=== PATIENT | female | born 1930 | race Native Hawaiian/Other Pacific Islander ===

== ENCOUNTER → 2016-02-19 | Outpatient (CLI) | payer MEDICARE, BC ==
--- NOTE | 2016-02-22 16:05 | BD ---
EXAMINATION TYPE: MG DEXA axial skeleton. DATE OF EXAM: 02/19/2016 3:44 PM COMPARISON: NONE CLINICAL HISTORY: Height: 59 IN Weight: 130 LBS FRAX RISK QUESTIONS: Alcohol (3 or more units per day): NO Family History (Parent hip fracture): NO Glucocorticoids (More than 3mos): NO (Ex: prednisone, prednisolone, methylprednisolone, dexamethasone, and hydrocortisone). History of Fracture in Adulthood: YES TIB FIB AGE 76 Secondary Osteoporosis: 1. Type 1 Diabetes: NO 2. Hyperthyroidism: NO 3. Menopause before 45: YES AGE 29 4. Malnutrition: NO 5. Chronic liver disease: NO Rheumatoid Arthritis: NO Current Tobacco Use: NO RISK FACTORS HISTORY OF: Other Fractures since Age 52: YES RT TIB FIB When: AGE 76 Active: YES Diet low in dairy products/other sources of calcium: YES Postmenopausal woman: AGE 29 MEDICATIONS: Additional Medications: VIT D, MULTI VIT, METFORMIN, LISINIPRIL, ASPIRIN, EXAM MEASUREMENTS: Bone mineral densitometry was performed using the UBmatrix System. Bone mineral density as measured about the Lumbar spine is: ----- L1-L4(G/cm2): 1.231 T Score Values are as follows: ----- L2: -0.4 ----- L3: 0.6 ----- L4: 2.7 ----- L1-L4: 0.4 Bone mineral density has: Increased 4.4% since study of: 07/19/2006 Bone mineral density about the R hip (g/cm2): 0.892 Bone mineral density about the L hip (g/cm2): 0.870 T Score values are as follows: -----R Neck: -1.1 -----L Neck: -1.2 -----R Intertrochanter: -1.4 -----L Intertrochanter: -1.2 Bone mineral density has: Decreased -2.8% since study of: 07/19/2006 IMPRESSION: Osteopenia (T Score between -2.5 and -1 as noted by T score values There is slightly increased risk of fracture and the patient may be considered for treatment. Re-Screen 1-2 years. NOTE: T-SCORE=SD OF THE YOUNG ADULT MEAN.
--- NOTE | 2016-02-24 09:04 | MM ---
Reason for exam: screening (asymptomatic). Last mammogram was performed 1 year and 3 months ago. History: Patient is postmenopausal. Physical Findings: A clinical breast exam by your physician is recommended on an annual basis and results should be correlated with mammographic findings. MG 3D Screening Mammo W/Cad Bilateral CC and MLO view(s) were taken. Prior study comparison: December 01, 2014, bilateral MG screening mammo w CAD. January 09, 2013, [facility] DIGITAL LEFT BREAST MAMMOGRAM w/CAD. The breast tissue is extremely dense which could obscure a lesion on mammography. Asymmetry. No significant changes when compared with prior studies. ASSESSMENT: Benign, BI-RAD 2 RECOMMENDATION: Routine screening mammogram of both breasts in 1 year.
== END | disposition home or self-care (01) ==
LOC: RADMAMWWP 14:46
PROVIDERS: ATTEND Internal Medicine Geriatric Medicine
DX: Z12.31 Encounter for screening mammogram for malignant neoplasm of breast (principal); M85.80 Other specified disorders of bone density and structure, unspecified site
CPT/HCPCS: 77080; 77063; G0202

== ENCOUNTER 2016-03-04 07:28 | Day surgery (SDC) | payer BC, MEDICARE ==
[2016-02-29 11:22] VITALS: BMI 25.8
[~2016-03-04 07:28] MED LIST: LACTATED RINGERS 1,000 ML IV SCH
[2016-03-04 08:09] LABS: Glucose,Whole Blood 82 mg/dL (75-99)
[2016-03-04 08:13] VITALS: RESP 16; TEMP 97.9
[2016-03-04] MEDS ORDERED: LIDOCAINE 1% 20 ML VIAL (10MG/ML) FOR IV START INTRAPLEUR ONE (08:14)
[2016-03-04] MEDS ORDERED: LIDOCAINE 1% INJ 10MG/ML (20 ML MDV) ONE (08:19)
[2016-03-04] MEDS ORDERED: PROPOFOL 10 MG/ML 20 ML VIAL IV ONE (08:19)
--- NOTE | 2016-03-04 08:39 | P.PCN ---
Date of Procedure: 03/04/16 Procedure(s) Performed: Brief history: Patient is a pleasant 86-year-old white female, scheduled for an elective upper endoscopy as well as colonoscopy as a part of evaluation of iron deficiency anemia. She denies any GI symptoms. Procedure performed: Esophagogastroduodenoscopy with biopsy Colonoscopy Preoperative diagnosis: Iron deficiency anemia Anesthesia: [facility] Procedure: After informed consent was obtained from the patient was brought into the endoscopy unit and IV conscious sedation was administered by anesthesia under continuous monitoring. Initially upper endoscopy was done. The Olympus GF 160 video endoscope was inserted inserted into the mouth and esophagus intubated without any difficulty and was gradually advanced into the stomach and duodenum and carefully examined. The bulb and second part of the duodenum appeared normal. Biopsies were done from the duodenum to rule out celiac disease. The scope was then withdrawn into the stomach adequately insufflated with air and upon careful examination the antrum had mild gastritis and biopsies were done from this area. The body, cardia and fundus appeared normal. The scope was then withdrawn into the esophagus. The GE junction was located at 40 cm to the incisors. It appeared regular with no erythema erosions or ulcerations. Rest of the esophagus appeared normal. Patient tolerated the procedure well. At this time the patient continued to remain sedation. Initial digital rectal examination was normal. Olympus CF 160 video colonoscope was then inserted into the rectum and gradually advanced to the cecum without any difficulty. Careful examination was performed as the scope was gradually being withdrawn. The prep was excellent. The cecum, ascending colon, transverse colon, descending colon, sigmoid colon and rectum appeared normal. Retroflexion was performed in the rectum andsmall internal hemorrhoidsre noted. Patient tolerated the procedure well. Impression: 1. Upper endoscopy revealed mild antral gastritis but no evidence of esophagitis or peptic ulcer disease. 2. Colonoscopy was essentially within normal limits with no evidence of colitis or colorectal neoplasia. Small internal hemorrhoids seen. Recommendations: Findings of this examination were discussed with the patient as well as her family. She was advised to follow with the biopsy results. She'll also advised to follow with Dr. Bryant is scheduled.
[2016-03-04 09:31] VITALS: BP 181/87; PULSE 77
[2016-03-04 09:33] LABS: Glucose,Whole Blood 68 mg/dL (75-99)
== END 2016-03-04 10:04 | disposition home or self-care (01) ==
LOC: ORWHC2ENDO 07:28
PROVIDERS: ATTEND Internal Medicine Gastroenterology
DX: K29.50 Unspecified chronic gastritis without bleeding (principal); D50.9 Iron deficiency anemia, unspecified; B96.81 Helicobacter pylori [H. pylori] as the cause of diseases classified elsewhere; E78.5 Hyperlipidemia, unspecified; I10 Essential (primary) hypertension; K64.8 Other hemorrhoids; I25.2 Old myocardial infarction; Z79.84 Long term (current) use of oral hypoglycemic drugs; Z79.4 Long term (current) use of insulin; Z79.899 Other long term (current) drug therapy; Z79.82 Long term (current) use of aspirin
CPT/HCPCS: 43239; 45378; 88305; 88342; J2001; J2704; 99153

== ENCOUNTER 2016-03-27 12:15 | Emergency (ER) | payer MEDICARE ==
[2016-03-27 12:20] VITALS: RESP 18
[2016-03-27] MEDS ORDERED: ASPIRIN 81 MG CHEW PO STA (12:39)
[2016-03-27 13:11] LABS: Basophils # (A) 0.1 k/uL (0-0.2); Basophils % (A) 1 %; CH 30.9; CHCM 32.6; Eosinophils # (A) 0.2 k/uL (0-0.7); Eosinophils % (A) 4 %; HCT 31.2 % (34.0-46.0); HDW 2.43; HGB 9.7 gm/dL (11.4-16.0); Luc # (Auto) 0.12; Luc % (Auto) 3; Lymphocytes # (A) 0.5 k/uL (1.0-4.8); Lymphocytes % (A) 11 %; MCH 29.6 pg (25.0-35.0); MCHC 31.2 g/dL (31.0-37.0); MCV 95.1 fL (80.0-100.0); Mean Platelet Volume 8.9; Monocytes # (A) 0.3 k/uL (0-1.0); Monocytes % (A) 6 %; Neutrophils # (A) 3.6 k/uL (1.3-7.7); Neutrophils % (A) 75 %; RBC 3.28 m/uL (3.80-5.40); RDW 12.8 % (11.5-15.5); WBC 4.8 k/uL (3.8-10.6); WBC (Perox) 4.89
[2016-03-27 13:15] LABS: Anion Gap 11 mmol/L; Blood Urea Nitrogen 24 mg/dL (7-17); Calcium 8.9 mg/dL (8.4-10.2); Carbon Dioxide 23 mmol/L (22-30); Chloride 107 mmol/L (98-107); Glucose 259 mg/dL (74-99); Magnesium 1.9 mg/dL (1.6-2.3); Non-African American GFR(MDRD) 53 (>60 ml/min/1.73 sqM); Potassium 4.9 mmol/L (3.5-5.1); Sodium 141 mmol/L (137-145)
--- NOTE | 2016-03-27 13:19 | XR ---
EXAMINATION TYPE: XR chest 1V portable DATE OF EXAM: 03/27/2016 1:12 PM COMPARISON: NONE HISTORY: Chest discomfort per patient. Pain per order. TECHNIQUE: Single AP portable frontal upright view of the chest is obtained. FINDINGS: There is reticular interstitial changes in both lungs favor chronic parenchymal fibrosis s een bilaterally slightly more pronounced in the lung bases. There is no suspicious focal airspace [place], pleural effusion, or pneumothorax identified. The cardiac silhouette size is upper limits of no rmal with atherosclerotic thoracic aorta. The osseous structures are demineralized. IMPRESSION: Chronic parenchymal changes without acute pulmonary process.
[2016-03-27 13:22] LABS: Prothrombin Time 10.3 sec (9.0-12.0)
--- NOTE | 2016-03-27 14:55 | ED ---
Chest Pain HPI - General Chief Complaint: Chest Pain Stated Complaint: chest pain Time Seen by Provider: 03/27/16 12:31 Source: patient Mode of arrival: ambulatory Limitations: no limitations - History of Present Illness Initial Comments: Patient is an 86-year-old female with history of diabetes, hypertension, hyperlipidemia presenting with chest pain. Patient states chest pain started about hour prior to arrival and was associated with nausea. Patient was an argument with her . Chest pain did not radiate. Chest pain lasted about an hour or so as patient is chest pain free right now. Patient did not have to take any nitro. Patient does not take aspirin. Patient denies any fever, chills, shortness of breath, vomiting, diarrhea, abdominal pain, dysuria. Patient states she had a stress test about a year ago at Dr. Casas. - Related Data Home Medications Medication Instructions Recorded Confirmed Aspirin [Adult Low Dose Aspirin EC] 81 mg PO QAM 02/29/16 03/27/16 Baclofen [Lioresal] 10 mg PO QAM 02/29/16 03/27/16 Diltiazem HCl [Cartia Xt] 120 mg PO QAM 02/29/16 03/27/16 Insulin Lispro [humaLOG Kwikpen] 6 unit SQ BID 02/29/16 03/27/16 Lisinopril [Prinivil] 10 mg PO DAILY 02/29/16 03/27/16 Pravastatin Sodium [Pravachol] 40 mg PO HS 02/29/16 03/27/16 metFORMIN HCL [Glucophage] 500 mg PO DAILY 02/29/16 03/27/16 Amoxicillin 500 mg PO BID 03/27/16 03/27/16 Clarithromycin [Biaxin] 500 mg PO BID 03/27/16 03/27/16 Ranitidine HCl [Zantac] 150 mg PO BID 03/27/16 03/27/16 Allergies Allergy/AdvReac Type Severity Reaction Status Date / Time No Known Allergies Allergy Verified 03/27/16 13:04 Review of Systems ROS Statement: Those systems with pertinent positive or pertinent negative responses have been documented in the HPI. Constitutional: No fever and no chills. HENT: No congestion, no rhinorrhea and no sore throat. Eyes: No discharge and no redness. Respiratory: No cough and no shortness of breath. Cardiovascular: +chest pain and no palpitations. Gastrointestinal: +nausea, no vomiting, no abdominal pain and no diarrhea. Genitourinary: No dysuria and no hematuria. Musculoskeletal: No back pain and no arthralgias. Skin: No pallor and no rash. Neurological: No dizziness and No headaches. ROS Other: All systems not noted in ROS Statement are negative. EKG Findings - EKG Comments: EKG Findings:: Rate 93. NSR. No ST changes. TWI V2 AND V3. FL internal normal . QRS interval normal. QTc duration normal. Past Medical History Past Medical History: Diabetes Mellitus, Hyperlipidemia, Hypertension, Myocardial Infarction ([place]) Additional Past Medical History / Comment(s): HX OF ANEMIA, STATES WAS TOLD HAD SILENT [place], PT THINKS WHEN SHE WAS AGE 18, WEARS A WIG Last Myocardial Infarction Date:: UNKNOWN History of Any Multi-Drug Resistant Organisms: None Reported Past Surgical History: Appendectomy, Heart Catheterization, Hysterectomy Additional Past Surgical History / Comment(s): BROCK CATARACTS Past Anesthesia/Blood Transfusion Reactions: No Reported Reaction Past Psychological History: No Psychological Hx Reported Smoking Status: Never smoker Past Alcohol Use History: None Reported Past Drug Use History: None Reported - Past Family History Mother Family Medical History: Cancer Additional Family Medical History / Comment(s): LIVER General Exam - General Exam Comments Initial Comments: Constitutional: Patient appears well-developed and well-nourished. No distress. Head: Normocephalic and atraumatic. Eyes: Conjunctivae and EOM are normal. Right eye exhibits no discharge. Left eye exhibits no discharge. No scleral icterus. Neck: Normal range of motion. Neck supple. Cardiovascular: Normal rate and regular rhythm. No murmur heard. Pulmonary/Chest: Effort normal and breath sounds normal. No respiratory distress. No wheezes. Abdominal: Soft. No distension. There is no tenderness. There is no rebound and no guarding. Musculoskeletal: Normal range of motion. Tender bilateral pitting edema. Neurological: Patient alert and oriented to person, place, and time. Skin: Skin is warm and dry. Not diaphoretic. Nursing notes and vitals reviewed. Limitations: no limitations Course Vital Signs 03/27/16 03/27/16 03/27/16 12:18 12:36 13:20 Temperature 97.8 F 98.5 F Pulse Rate 98 78 80 Respiratory 18 18 18 Rate Blood Pressure 207/78 171/67 152/67 O2 Sat by Pulse 100 100 Oximetry 03/27/16 03/27/16 15:40 17:07 Temperature 98.2 F Pulse Rate 93 84 Respiratory 18 18 Rate Blood Pressure 165/73 159/71 O2 Sat by Pulse 100 100 Oximetry - Reevaluation(s) Reevaluation #1: 03/27/16 14:55 Updated patient on laboratory workup, chest x-ray and EKG. Patient considered a high-risk chest pain patient with a heart score of 5. Patient is now placed in the hospital. She is agreeable to second troponin. Chest Pain [facility] Patient is an 86-year-old female with history of diabetes, hypertension, hyperlipidemia presenting with chest pain. Chest pain was associate with an argument. Resolved with rest. Last of about one hour. Chest pain is nonradiating. EKG showed isolated T-wave inversions to V2 and V3. No prior EKG to compare. CBC, BMP showed a hemoglobin of 9.7, BUN of 24, glucose 259. Troponin was negative 2. BNP 520. Chest x-ray showing chronic parenchymal changes without acute bony process. Patient presented with chest pain and heart score is 5. Patient understands that she is a high-risk chest pain. She understands that she needs further testing including serial troponins, stress test, cardiology evaluation. She is understanding of risks and benefits. Patient understands she can have worsening cardiac damage resulting in disability and even . She accepts these risks. She does not want to stay in the hospital. Discussion was in front of family and they are agreeable with patient's decision as she has sound capacity to make decisions for herself. 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 She is leaving against my advice. Disposition Clinical Impression: Chest pain Disposition: Left Against Medical Advice Instructions: Chest Pain (ED) Referrals: Connor Shay MD [Primary Care Provider] - 1-2 days
[2016-03-27 17:08] VITALS: BP 159/71; PULSE 84; TEMP 98.2
== END 2016-03-27 17:13 | disposition left against medical advice (07) ==
LOC: EC 12:15
DX: R07.9 Chest pain, unspecified (principal); R11.0 Nausea; I10 Essential (primary) hypertension; E11.9 Type 2 diabetes mellitus without complications; E78.5 Hyperlipidemia, unspecified; I25.2 Old myocardial infarction; Z79.82 Long term (current) use of aspirin; Z79.4 Long term (current) use of insulin; Z79.84 Long term (current) use of oral hypoglycemic drugs; Z79.2 Long term (current) use of antibiotics; Z79.899 Other long term (current) drug therapy
CPT/HCPCS: 36415; 71010; 80048; 83735; 83880; 84484; 85025; 85610; 85730; 93005; 99285

== ENCOUNTER 2018-05-15 17:21 | Emergency (ER) | payer MEDICARE ==
[2018-05-15 17:27] VITALS: TEMP 97.6
[2018-05-15 17:35] LABS: Glucose,Whole Blood 294 mg/dL (75-99)
[2018-05-15 17:58] LABS: Basophils # (A) 0.1 k/uL (0-0.2); Basophils % (A) 1 %; Eosinophils # (A) 0.3 k/uL (0-0.7); Eosinophils % (A) 5 %; HCT 31.2 % (34.0-46.0); Lymphocytes # (A) 0.8 k/uL (1.0-4.8); Lymphocytes % (A) 15 %; MCHC 32.2 g/dL (31.0-37.0); MCV 93.1 fL (80.0-100.0); Mean Platelet Volume 7.4; Monocytes # (A) 0.3 k/uL (0-1.0); Monocytes % (A) 6 %; Neutrophils # (A) 3.7 k/uL (1.3-7.7); Neutrophils % (A) 70 %; Platelet Count 179 k/uL (150-450); RBC 3.35 m/uL (3.80-5.40); RDW 13.2 % (11.5-15.5); WBC 5.3 k/uL (3.8-10.6)
[2018-05-15 18:08] LABS: Calcium 9.1 mg/dL (8.4-10.2); Magnesium 1.5 mg/dL (1.6-2.3); Potassium 5.6 mmol/L (3.5-5.1); Total Bilirubin 0.4 mg/dL (0.2-1.3); Total Protein 6.8 g/dL (6.3-8.2)
--- NOTE | 2018-05-15 18:34 | ED ---
General Adult HPI - General Chief complaint: Recheck/Abnormal Lab/Rx Stated complaint: diabetic issue Time Seen by Provider: 05/15/18 17:28 Source: family Mode of arrival: wheelchair - History of Present Illness Initial comments: Dictation was produced using [employer] dictation software. please excuse any grammatical, word or spelling errors. Chief Complaint: 88-year-old female past medical history of diabetes, dyslipidemia, coronary artery disease presents with altered mental status. History of Present Illness: Patient was brought in by family. Apparently patient had altered mental status today. Patient is a diabetic. Family not here at bedside currently. Patient does not know why she is here. Nursing received report from triage nurse. I was told that patient was found to be altered by family and there was concern that patient had an episode of hypoglycemia. They gave her orange juice and other by mouth glucose. Patient improved however she is brought here because she is not mentating at her baseline currently. Patient does not know why she is here at this time. Patient has no complaints currently. The ROS documented in this emergency department record has been reviewed and confirmed by me. Those systems with pertinent positive or negative responses have been documented in the HPI. All other systems are other negative and/or noncontributory. PHYSICAL EXAM: General Impression: Alert and oriented x3, not in acute distress HEENT: Normocephalic atraumatic, extra-ocular movements intact, pupils equal and reactive to light bilaterally, dry mucous membranes Cardiovascular: Heart regular rate and rhythm, S1&S2 audible, no murmurs, rubs or gallops Chest: Lungs clear to auscultation bilaterally, no rhonchi, no wheeze, no rales Abdomen: Bowel sounds present, abdomen soft, non-tender, non-distended, no organomegaly Musculoskeletal: Pulses present and equal in all extremities, no peripheral edema Motor: no focal deficits noted Neurological: CN II-XII grossly intact, no focal motor or sensory deficits noted Skin: Intact with no visualized rashes Psych: Normal affect and mood ED course: 88-year-old female presents with altered mental status and concern for hypoglycemia. Vital signs upon arrival are within acceptable limits. Patient is well-appearing at this time. No focal neurologic deficits. Family was at bedside earlier today. Daughter who reports that patient has known history of diabetes. She does rule out insulin. Patient however has a history of not eating after taking insulin. She takes is him on insulin errors in all day. Patient has had multiple episodes like this in the past. Daughter at bedside reports that patient is at baseline currently. Laboratory evaluation obtained. CBC is unremarkable. Metabolic panel shows potassium 5.6. Rest metabolic panel is grossly unremarkable. Magnesium is 1.5. Patient given 1 L of intravenous fluids. Magnesium was replaced parenterally. Urinalysis unremarkable for urinary tract infection. Computed tomography scan of the head and x-ray shows no acute processes. Family bedside reports that patient is at baseline. He didn't fill comfortable taking her home. They did schedule an appointment with her primary care physician tomorrow. Patient is told that her magnesium was low and we replace it. She is told to get a glucometer to check her sugars so she knows how much insulin and how much glucose to take. It appears that patient is noncompliant with her diabetes regimen. Patient told that her potassium is 5.7 and that it should be rechecked again tomorrow by her PCP. Family and patient are understandable and agreeable to disposition. Clear for discharge. Told to return to the back to the emergency Department with any worsening symptoms. EKG interpretation: Ventricular rate 87, sinus rhythm with first-degree AV blo ck, UT interval 210, Q 74, QTc 445. No UT prolongation, no QTC prolongation, no ST or T-wave changes noted. Overall, this EKG is unremarkable - Related Data Home Medications Medication Instructions Recorded Confirmed Aspirin [Adult Low Dose Aspirin EC] 81 mg PO QAM 02/29/16 05/15/18 Diltiazem HCl [Cartia Xt] 120 mg PO QAM 02/29/16 05/15/18 Insulin Lispro [humaLOG Kwikpen] 7 unit SQ BID 02/29/16 05/15/18 Lisinopril [Prinivil] 10 mg PO DAILY 02/29/16 05/15/18 metFORMIN HCL [Glucophage] 500 mg PO DAILY 02/29/16 05/15/18 Bisacodyl [Dulcolax] 5 mg PO DAILY PRN 05/15/18 05/15/18 Nitroglycerin Sl Tabs [Nitrostat] 0.4 mg SUBLINGUAL Q5M PRN 05/15/18 05/15/18 Omeprazole [PriLOSEC] 20 mg PO DAILY 05/15/18 05/15/18 Allergies Allergy/AdvReac Type Severity Reaction Status Date / Time No Known Allergies Allergy Verified 05/15/18 17:36 Review of Systems ROS Statement: Those systems with pertinent positive or pertinent negative responses have been documented in the HPI. ROS Other: All systems not noted in ROS Statement are negative. Past Medical History Past Medical History: Diabetes Mellitus, Hyperlipidemia, Hypertension, Myocardial Infarction ([place]) Additional Past Medical History / Comment(s): HX OF ANEMIA, STATES WAS TOLD HAD SILENT [place], PT THINKS WHEN SHE WAS AGE 18, WEARS A WIG Last Myocardial Infarction Date:: UNKNOWN History of Any Multi-Drug Resistant Organisms: None Reported Past Surgical History: Appendectomy, Heart Catheterization, Hysterectomy Additional Past Surgical History / Comment(s): BROCK CATARACTS Past Anesthesia/Blood Transfusion Reactions: No Reported Reaction Past Psychological History: No Psychological Hx Reported Smoking Status: Never smoker Past Alcohol Use History: None Reported Past Drug Use History: None Reported - Past Family History Mother Family Medical History: Cancer Additional Family Medical History / Comment(s): LIVER Course Vital Signs 05/15/18 05/15/18 05/15/18 17:23 18:11 20:09 Temperature 97.6 F Pulse Rate 75 86 83 Respiratory 18 16 14 Rate Blood Pressure 149/64 164/72 129/64 O2 Sat by Pulse 100 100 99 Oximetry 05/15/18 20:59 Temperature Pulse Rate 77 Respiratory 16 Rate Blood Pressure 126/75 O2 Sat by Pulse 100 Oximetry Medical Decision Making - Lab Data Result diagrams: 05/15/18 17:44 05/15/18 17:44 Lab Results 05/15/18 05/15/18 05/15/18 Range/Units 17:33 17:44 17:44 WBC 5.3 (3.8-10.6) k/uL RBC 3.35 L (3.80-5.40) m/uL Hgb 10.0 L (11.4-16.0) gm/dL Hct 31.2 L (34.0-46.0) % MCV 93.1 (80.0-100.0) fL MCH 30.0 (25.0-35.0) pg MCHC 32.2 (31.0-37.0) g/dL RDW 13.2 (11.5-15.5) % Plt Count 179 (150-450) k/uL Neutrophils % 70 % Lymphocytes % 15 % Monocytes % 6 % Eosinophils % 5 % Basophils % 1 % Neutrophils # 3.7 (1.3-7.7) k/uL Lymphocytes # 0.8 L (1.0-4.8) k/uL Monocytes # 0.3 (0-1.0) k/uL Eosinophils # 0.3 (0-0.7) k/uL Basophils # 0.1 (0-0.2) k/uL Sodium 136 L (137-145) mmol/L Potassium 5.6 H (3.5-5.1) mmol/L Chloride 105 (98-107) mmol/L Carbon Dioxide 24 (22-30) mmol/L Anion Gap 7 mmol/L BUN 25 H (7-17) mg/dL Creatinine 1.08 H (0.52-1.04) mg/dL Est GFR (CKD-EPI)AfAm 54 (>60 ml/min/1.73 sqM) Est GFR (CKD-EPI)NonAf 47 (>60 ml/min/1.73 sqM) Glucose 279 H (74-99) mg/dL POC Glucose (mg/dL) 294 H (75-99) mg/dL POC Glu Dock Loader ID Rupert Espino A Calcium 9.1 (8.4-10.2) mg/dL Magnesium 1.5 L (1.6-2.3) mg/dL Total Bilirubin 0.4 (0.2-1.3) mg/dL AST 17 (14-36) U/L ALT 21 (9-52) U/L Alkaline Phosphatase 73 (38-126) U/L Ammonia (<30) umol/L Total Protein 6.8 (6.3-8.2) g/dL Albumin 4.0 (3.5-5.0) g/dL Urine Color Urine Appearance (Clear) Urine pH (5.0-8.0) Ur Specific [place] (1.001-1.035) Urine Protein (Negative) Urine Glucose (UA) (Negative) Urine Ketones (Negative) Urine Blood (Negative) Urine Nitrite (Negative) Urine Bilirubin (Negative) Urine Urobilinogen (<2.0) mg/dL Ur Leukocyte Esterase (Negative) Urine RBC (0-5) /hpf Urine WBC (0-5) /hpf Urine Bacteria (None) /hpf Hyaline Casts (0-2) /lpf Urine Mucus (None) /hpf 05/15/18 05/15/18 Range/Units 19:24 20:26 WBC (3.8-10.6) k/uL RBC (3.80-5.40) m/uL Hgb (11.4-16.0) gm/dL Hct (34.0-46.0) % MCV (80.0-100.0) fL MCH (25.0-35.0) pg MCHC (31.0-37.0) g/dL RDW (11.5-15.5) % Plt Count (150-450) k/uL Neutrophils % % Lymphocytes % % Monocytes % % Eosinophils % % Basophils % % Neutrophils # (1.3-7.7) k/uL Lymphocytes # (1.0-4.8) k/uL Monocytes # (0-1.0) k/uL Eosinophils # (0-0.7) k/uL Basophils # (0-0.2) k/uL Sodium (137-145) mmol/L Potassium (3.5-5.1) mmol/L Chloride (98-107) mmol/L Carbon Dioxide (22-30) mmol/L Anion Gap mmol/L BUN (7-17) mg/dL Creatinine (0.52-1.04) mg/dL Est GFR (CKD-EPI)AfAm (>60 ml/min/1.73 sqM) Est GFR (CKD-EPI)NonAf (>60 ml/min/1.73 sqM) Glucose (74-99) mg/dL POC Glucose (mg/dL) (75-99) mg/dL POC Glu Dock Loader ID Calcium (8.4-10.2) mg/dL Magnesium (1.6-2.3) mg/dL Total Bilirubin (0.2-1.3) mg/dL AST (14-36) U/L ALT (9-52) U/L Alkaline Phosphatase (38-126) U/L Ammonia <9 (<30) umol/L Total Protein (6.3-8.2) g/dL Albumin (3.5-5.0) g/dL Urine Color Yellow Urine Appearance Cloudy H (Clear) Urine pH 5.5 (5.0-8.0) Ur Specific [place] 1.013 (1.001-1.035) Urine Protein 1+ H (Negative) Urine Glucose (UA) 4+ H (Negative) Urine Ketones Negative (Negative) Urine Blood Negative (Negative) Urine Nitrite Negative (Negative) Urine Bilirubin Negative (Negative) Urine Urobilinogen <2.0 (<2.0) mg/dL Ur Leukocyte Esterase Negative (Negative) Urine RBC 1 (0-5) /hpf Urine WBC 1 (0-5) /hpf Urine Bacteria Many H (None) /hpf Hyaline Casts 7 H (0-2) /lpf Urine Mucus Rare H (None) /hpf Disposition Clinical Impression: Hypoglycemia Disposition: HOME SELF-CARE Instructions (If sedation given, give patient instructions): Hypoglycemia in a Person with Diabetes (ED) Is patient prescribed a controlled substance at d/c from ED?: No Referrals: Connor Shay MD [Primary Care Provider] - 1-2 days Time of Disposition: 21:25
[2018-05-15] MEDS ORDERED: MAGNESIUM SULFATE-D5W PMX 1 GM in DEXTROSE/WATER 1 100ML.BAG IVPB SCH (19:00)
--- NOTE | 2018-05-15 19:22 | CT ---
EXAMINATION: CT brain wo con DATE AND TIME: 05/15/2018 7:10 PM CLINICAL INDICATION: PHH; Pain TECHNIQUE: Standard departmental protocol.; 1099.4; COMPARISON: None. FINDINGS: The calvarium is intact. There is no intracranial hemorrhage. There is no intracranial mass or mass effect. No definite new intra-axial or extra-axial attenuation defect. The paranasal sinuses, middle ear cavities, and mastoid sinus air cells are clear. The orbits are unremarkable. IMPRESSION: NO ACUTE PROCESS.
[2018-05-15] MEDS ORDERED: SODIUM CHLORIDE 0.9% 1,000 ML IV STA (19:35)
--- NOTE | 2018-05-15 20:03 | XR ---
EXAMINATION: XR chest 2V DATE AND TIME: 05/15/2018 7:29 PM CLINICAL INDICATION: PHH; Pain TECHNIQUE: Departmental protocol COMPARISON: 03/27/2016 FINDINGS: The lungs are clear. The pleural spaces are negative. The cardiac silhouette is mildly enlarged. The remainder of the mediastinal silhouette is unremarkabl e. The skeletal structures and soft tissues are negative for acute findings. IMPRESSION: NO ACUTE PROCESS.
[2018-05-15 20:49] LABS: Appearance,Urine Cloudy (Clear); Bacteria,Urine Many /hpf; Bilirubin,Urine Negative (Negative); Blood,Urine Negative (Negative); Color,Urine Yellow; Glucose,Urine (UA) 4+ (Negative); Hyaline Casts,Urine 7 /lpf (0-2); Ketones,Urine Negative (Negative); Leukocyte Esterase,Urine Negative (Negative); Mucus,Urine Rare /hpf; Nitrite,Urine Negative (Negative); PH, Urine 5.5 (5.0-8.0); Protein,Urine 1+ (Negative); RBC,Urine 1 /hpf (0-5); Specific Gravity,Urine 1.013 (1.001-1.035); Urobilinogen,Urine <2.0 mg/dL (<2.0); WBC,Urine 1 /hpf (0-5)
[2018-05-15 21:00] VITALS: RESP 16
[2018-05-15 21:47] VITALS: BP 143/62; PULSE 74
== END 2018-05-15 21:53 | disposition home or self-care (01) ==
LOC: EC 17:21
DX: E11.649 Type 2 diabetes mellitus with hypoglycemia without coma (principal); E78.5 Hyperlipidemia, unspecified; I25.10 Atherosclerotic heart disease of native coronary artery without angina pectoris; I10 Essential (primary) hypertension; I25.2 Old myocardial infarction; D64.9 Anemia, unspecified; Z79.82 Long term (current) use of aspirin; Z79.4 Long term (current) use of insulin; Z79.899 Other long term (current) drug therapy; E16.2 Hypoglycemia, unspecified
CPT/HCPCS: 36415; 80053; 82140; 83735; 85025; 81001; 87086; 71046; 70450; 99285; 96365; J3475

== ENCOUNTER 2018-09-07 12:31 | Observation (INO) | payer MEDICARE ==
--- NOTE | 2018-09-07 13:23 | ED ---
Altered Mental Status HPI - General Chief Complaint: Altered Mental Status Stated Complaint: Altered mental status Time Seen by Provider: 09/07/18 13:16 Source: EMS Mode of arrival: EMS Limitations: altered mental status - History of Present Illness Initial Comments: Patient presents with report of altered mental status. Information is provided by the family. According to family, normally the patient is able to help get out of bed and is oriented at least 1. At this time the patient is not oriented at all. She provides no further information. It is not clear when the symptoms began. Patient is given no medication for her symptoms. An Accu-Chek was obtained by EMS prior to arrival which was - Related Data Home Medications Medication Instructions Recorded Confirmed Aspirin [Adult Low Dose Aspirin EC] 81 mg PO QAM 02/29/16 09/07/18 Diltiazem HCl [Cartia Xt] 120 mg PO QAM 02/29/16 09/07/18 Lisinopril [Prinivil] 10 mg PO DAILY 02/29/16 09/07/18 metFORMIN HCL [Glucophage] 500 mg PO BID 02/29/16 09/07/18 Nitroglycerin Sl Tabs [Nitrostat] 0.4 mg SUBLINGUAL Q5M PRN 05/15/18 09/07/18 Omeprazole [PriLOSEC] 20 mg PO DAILY 05/15/18 09/07/18 Acetaminophen with Codeine 1 tab PO Q8H PRN 09/07/18 09/07/18 [Tylenol w/codeine #3] Baclofen [Lioresal] 5 mg PO TID 09/07/18 09/07/18 Celecoxib [CeleBREX] 200 mg PO DAILY PRN 09/07/18 09/07/18 Exenatide Microspheres [Bydureon 2 mg SQ Q7D 09/07/18 09/07/18 Pen] Insulin NPH Hum/Reg Insulin Hm 5 units SQ BID 09/07/18 09/07/18 [Relion Novolin 70-30 Flexpen] Multivit with Calcium,Iron,Min 1 tab PO DAILY 09/07/18 09/07/18 [Women's Multivitamin] Pravastatin Sodium [Pravachol] 40 mg PO HS 09/07/18 09/07/18 Allergies Allergy/AdvReac Type Severity Reaction Status Date / Time No Known Allergies Allergy Verified 09/07/18 12:59 Review of Systems ROS Statement: Those systems with pertinent positive or pertinent negative responses have been documented in the HPI. ROS Other: All systems not noted in ROS Statement are negative. Limitations: ROS unobtainable due to patients medical condition Past Medical History Past Medical History: Diabetes Mellitus, Hyperlipidemia, Hypertension, Myocardial Infarction ([place]) Additional Past Medical History / Comment(s): HX OF ANEMIA, STATES WAS TOLD HAD SILENT NC, PT THINKS WHEN SHE WAS AGE 18, WEARS A WIG Last Myocardial Infarction Date:: UNKNOWN History of Any Multi-Drug Resistant Organisms: None Reported Past Surgical History: Appendectomy, Heart Catheterization, Hysterectomy Additional Past Surgical History / Comment(s): BROCK CATARACTS Past Anesthesia/Blood Transfusion Reactions: No Reported Reaction Past Psychological History: No Psychological Hx Reported Smoking Status: Never smoker Past Alcohol Use History: None Reported Past Drug Use History: None Reported - Past Family History Mother Family Medical History: Cancer Additional Family Medical History / Comment(s): LIVER General Exam Limitations: altered mental status General appearance: lethargic, obtunded Head exam: Present: atraumatic Eye exam: Present: normal appearance ENT exam: Present: normal exam Neck exam: Present: normal inspection Respiratory exam: Present: normal lung sounds bilaterally Cardiovascular Exam: Present: regular rate, normal rhythm GI/Abdominal exam: Present: soft. Absent: tenderness Extremities exam: Present: normal inspection Back exam: Present: normal inspection Neurological exam: Present: altered. Absent: alert Skin exam: Present: warm, dry Course Vital Signs 09/07/18 09/07/18 09/07/18 12:39 15:23 17:34 Pulse Rate 69 56 L 88 Respiratory 18 18 20 Rate Blood Pressure 180/99 171/69 159/81 O2 Sat by Pulse 100 100 98 Oximetry Medical Decision Making - Medical Decision Making Patient presents with altered mental status. Her head CT does not show any acute process and her laboratory studies demonstrate a mild UTI. I ordered cultures and IV antibiotics. Patient will be admitted to the hospital. - Lab Data Result diagrams: 09/07/18 13:00 09/07/18 13:00 Lab Results 09/07/18 09/07/18 09/07/18 Range/Units 13:00 13:00 13:00 WBC 7.1 (3.8-10.6) k/uL RBC 3.65 L (3.80-5.40) m/uL Hgb 11.2 L (11.4-16.0) gm/dL Hct 34.6 (34.0-46.0) % MCV 94.8 (80.0-100.0) fL MCH 30.6 (25.0-35.0) pg MCHC 32.3 (31.0-37.0) g/dL RDW 12.7 (11.5-15.5) % Plt Count 258 (150-450) k/uL Neutrophils % 82 % Lymphocytes % 10 % Monocytes % 4 % Eosinophils % 2 % Basophils % 1 % Neutrophils # 5.8 (1.3-7.7) k/uL Lymphocytes # 0.7 L (1.0-4.8) k/uL Monocytes # 0.3 (0-1.0) k/uL Eosinophils # 0.1 (0-0.7) k/uL Basophils # 0.1 (0-0.2) k/uL PT (9.0-12.0) sec INR (<1.2) APTT (22.0-30.0) sec Sodium 140 (137-145) mmol/L Potassium 5.5 H (3.5-5.1) mmol/L Chloride 105 (98-107) mmol/L Carbon Dioxide 26 (22-30) mmol/L Anion Gap 9 mmol/L BUN 27 H (7-17) mg/dL Creatinine 1.27 H (0.52-1.04) mg/dL Est GFR (CKD-EPI)AfAm 44 (>60 ml/min/1.73 sqM) Est GFR (CKD-EPI)NonAf 38 (>60 ml/min/1.73 sqM) Glucose 207 H (74-99) mg/dL POC Glucose (mg/dL) (75-99) mg/dL POC Glu Family Practice Doctor ID Calcium 9.6 (8.4-10.2) mg/dL Total Bilirubin 0.3 (0.2-1.3) mg/dL AST 17 (14-36) U/L ALT 13 (9-52) U/L Alkaline Phosphatase 96 (38-126) U/L Ammonia <9 (<30) umol/L Troponin I (0.000-0.034) ng/mL Total Protein 7.3 (6.3-8.2) g/dL Albumin 4.3 (3.5-5.0) g/dL Urine Color Urine Appearance (Clear) Urine pH (5.0-8.0) Ur Specific [place] (1.001-1.035) Urine Protein (Negative) Urine Glucose (UA) (Negative) Urine Ketones (Negative) Urine Blood (Negative) Urine Nitrite (Negative) Urine Bilirubin (Negative) Urine Urobilinogen (<2.0) mg/dL Ur Leukocyte Esterase (Negative) Urine WBC (0-5) /hpf Urine Bacteria (None) /hpf Hyaline Casts (0-2) /lpf Urine Mucus (None) /hpf 09/07/18 09/07/18 09/07/18 Range/Units 13:00 13:00 13:49 WBC (3.8-10.6) k/uL RBC (3.80-5.40) m/uL Hgb (11.4-16.0) gm/dL Hct (34.0-46.0) % MCV (80.0-100.0) fL MCH (25.0-35.0) pg MCHC (31.0-37.0) g/dL RDW (11.5-15.5) % Plt Count (150-450) k/uL Neutrophils % % Lymphocytes % % Monocytes % % Eosinophils % % Basophils % % Neutrophils # (1.3-7.7) k/uL Lymphocytes # (1.0-4.8) k/uL Monocytes # (0-1.0) k/uL Eosinophils # (0-0.7) k/uL Basophils # (0-0.2) k/uL PT 9.9 (9.0-12.0) sec INR 0.9 (<1.2) APTT 21.1 L (22.0-30.0) sec Sodium (137-145) mmol/L Potassium (3.5-5.1) mmol/L Chloride (98-107) mmol/L Carbon Dioxide (22-30) mmol/L Anion Gap mmol/L BUN (7-17) mg/dL Creatinine (0.52-1.04) mg/dL Est GFR (CKD-EPI)AfAm (>60 ml/min/1.73 sqM) Est GFR (CKD-EPI)NonAf (>60 ml/min/1.73 sqM) Glucose (74-99) mg/dL POC Glucose (mg/dL) 178 H (75-99) mg/dL POC Glu Family Practice Doctor ID Cristiane Hsieh A Calcium (8.4-10.2) mg/dL Total Bilirubin (0.2-1.3) mg/dL AST (14-36) U/L ALT (9-52) U/L Alkaline Phosphatase (38-126) U/L Ammonia (<30) umol/L Troponin I <0.012 (0.000-0.034) ng/mL Total Protein (6.3-8.2) g/dL Albumin (3.5-5.0) g/dL Urine Color Urine Appearance (Clear) Urine pH (5.0-8.0) Ur Specific [place] (1.001-1.035) Urine Protein (Negative) Urine Glucose (UA) (Negative) Urine Ketones (Negative) Urine Blood (Negative) Urine Nitrite (Negative) Urine Bilirubin (Negative) Urine Urobilinogen (<2.0) mg/dL Ur Leukocyte Esterase (Negative) Urine WBC (0-5) /hpf Urine Bacteria (None) /hpf Hyaline Casts (0-2) /lpf Urine Mucus (None) /hpf 09/07/18 Range/Units 16:50 WBC (3.8-10.6) k/uL RBC (3.80-5.40) m/uL Hgb (11.4-16.0) gm/dL Hct (34.0-46.0) % MCV (80.0-100.0) fL MCH (25.0-35.0) pg MCHC (31.0-37.0) g/dL RDW (11.5-15.5) % Plt Count (150-450) k/uL Neutrophils % % Lymphocytes % % Monocytes % % Eosinophils % % Basophils % % Neutrophils # (1.3-7.7) k/uL Lymphocytes # (1.0-4.8) k/uL Monocytes # (0-1.0) k/uL Eosinophils # (0-0.7) k/uL Basophils # (0-0.2) k/uL PT (9.0-12.0) sec INR (<1.2) APTT (22.0-30.0) sec Sodium (137-145) mmol/L Potassium (3.5-5.1) mmol/L Chloride (98-107) mmol/L Carbon Dioxide (22-30) mmol/L Anion Gap mmol/L BUN (7-17) mg/dL Creatinine (0.52-1.04) mg/dL Est GFR (CKD-EPI)AfAm (>60 ml/min/1.73 sqM) Est GFR (CKD-EPI)NonAf (>60 ml/min/1.73 sqM) Glucose (74-99) mg/dL POC Glucose (mg/dL) (75-99) mg/dL POC Glu Family Practice Doctor ID Calcium (8.4-10.2) mg/dL Total Bilirubin (0.2-1.3) mg/dL AST (14-36) U/L ALT (9-52) U/L Alkaline Phosphatase (38-126) U/L Ammonia (<30) umol/L Troponin I (0.000-0.034) ng/mL Total Protein (6.3-8.2) g/dL Albumin (3.5-5.0) g/dL Urine Color Light Yellow Urine Appearance Cloudy H (Clear) Urine pH 6.0 (5.0-8.0) Ur Specific [place] 1.007 (1.001-1.035) Urine Protein 2+ H (Negative) Urine Glucose (UA) Negative (Negative) Urine Ketones Negative (Negative) Urine Blood Negative (Negative) Urine Nitrite Negative (Negative) Urine Bilirubin Negative (Negative) Urine Urobilinogen <2.0 (<2.0) mg/dL Ur Leukocyte Esterase Small H (Negative) Urine WBC 8 H (0-5) /hpf Urine Bacteria Occasional H (None) /hpf Hyaline Casts 4 H (0-2) /lpf Urine Mucus Rare H (None) /hpf 09/07/18 18:22 Twelve-lead EKG shows ventricular rate 66 bpm, normal VT interval and QRS complex is, no ST elevation or depression, interpreted by me as normal sinus rhythm. Disposition Clinical Impression: Altered mental status Disposition: ADMITTED IP TO THIS HOSP Condition: Fair Is patient prescribed a controlled substance at d/c from ED?: No Referrals: Connor Shay MD [Primary Care Provider] - 1-2 days
[2018-09-07] MEDS ORDERED: HYDROmorphone 0.5 MG/0.5 ML SYRINGE IVP STA (13:25)
[2018-09-07 13:33] LABS: Basophils # (A) 0.1 k/uL (0-0.2); Basophils % (A) 1 %; Eosinophils # (A) 0.1 k/uL (0-0.7); Eosinophils % (A) 2 %; HCT 34.6 % (34.0-46.0); HGB 11.2 gm/dL (11.4-16.0); Lymphocytes # (A) 0.7 k/uL (1.0-4.8); Lymphocytes % (A) 10 %; MCH 30.6 pg (25.0-35.0); MCHC 32.3 g/dL (31.0-37.0); MCV 94.8 fL (80.0-100.0); Mean Platelet Volume 7.5; Monocytes # (A) 0.3 k/uL (0-1.0); Monocytes % (A) 4 %; Neutrophils # (A) 5.8 k/uL (1.3-7.7); Neutrophils % (A) 82 %; Platelet Count 258 k/uL (150-450); RBC 3.65 m/uL (3.80-5.40); RDW 12.7 % (11.5-15.5); WBC 7.1 k/uL (3.8-10.6)
[2018-09-07 13:45] LABS: Albumin 4.3 g/dL (3.5-5.0); Calcium 9.6 mg/dL (8.4-10.2); Potassium 5.5 mmol/L (3.5-5.1); Total Bilirubin 0.3 mg/dL (0.2-1.3); Total Protein 7.3 g/dL (6.3-8.2)
[2018-09-07 13:49] LABS: INR 0.9 (<1.2); Prothrombin Time 9.9 sec (9.0-12.0)
[2018-09-07 13:52] LABS: Glucose,Whole Blood 178 mg/dL (75-99)
[2018-09-07 13:54] LABS: Partial Thromboplastin Time 21.1 sec (22.0-30.0)
--- NOTE | 2018-09-07 14:27 | CT ---
EXAMINATION TYPE: CT brain wo con DATE OF EXAM: 09/07/2018 COMPARISON: CT brain 05/15/2018 HISTORY: Altered mental status CT DLP: 1099.4 mGycm Automated exposure control for dose reduction was used. Helical imaging through the brain. FINDINGS: There are cerebral vascular calcifications present. Cortical atrophy, periventricular white matter lo w-attenuation is again noted. There is no hemorrhage or hydrocephalus. Focal parenchymal calcificatio n present in the left parietal brain is a stable finding Orbits show symmetric appearance. Calvarium is intact. Paranasal sinuses and mastoid air cells are well aerated. IMPRESSION: NO ACUTE ABNORMALITY. AGE-RELATED CHANGES OF ATROPHY AND PROBABLE CHRONIC SMALL VESSEL ISCHEMIA.
--- NOTE | 2018-09-07 14:30 | XR ---
EXAMINATION TYPE: XR chest 1V portable DATE OF EXAM: 09/07/2018 COMPARISON: Prior chest x-ray 05/15/2018 HISTORY: Altered mental status, history hypertension TECHNIQUE: Single frontal view of the chest is obtained. FINDINGS: There are overlying cardiac leads. The aorta is dense. Cardiac mediastinal silhouette, pul monary vascularity and milo are stable. Interstitium is increased. No evident airspace disease, pneum othorax, or pleural effusion. IMPRESSION: No acute process. Stable exam.
[2018-09-07 17:06] LABS: Appearance,Urine Cloudy (Clear); Bacteria,Urine Occasional /hpf; Bilirubin,Urine Negative (Negative); Blood,Urine Negative (Negative); Color,Urine Light Yellow; Glucose,Urine (UA) Negative (Negative); Hyaline Casts,Urine 4 /lpf (0-2); Ketones,Urine Negative (Negative); Leukocyte Esterase,Urine Small (Negative); Mucus,Urine Rare /hpf; Nitrite,Urine Negative (Negative); Protein,Urine 2+ (Negative); Specific Gravity,Urine 1.007 (1.001-1.035); Urobilinogen,Urine <2.0 mg/dL (<2.0); WBC,Urine 8 /hpf (0-5)
[2018-09-07] MEDS ORDERED: LORazepam 2 MG/ML INJ IV STA (17:25)
[2018-09-07] MEDS ORDERED: NALOXONE 0.4 MG/ML 1 ML VIAL IV PRN (18:24)
[2018-09-07] MEDS ORDERED: traMADol 50 MG TAB PO PRN (18:24)
[2018-09-07] MEDS ORDERED: ONDANSETRON 4 MG/2 ML VIAL IVP PRN (18:24)
[2018-09-07 21:52] VITALS: BMI 21.9
[2018-09-07 22:23] LABS: Glucose,Whole Blood 147 mg/dL (75-99)
[2018-09-07] MEDS: INSULN ASP PRT/INSULIN ASPART 100 UNIT/ML 10 ML VIAL SQ SCH (23:56)
[2018-09-08] MEDS: BACLOFEN 10 MG TAB PO SCH ×2 (00:08→11:48)
[2018-09-08] MEDS: PRAVASTATIN SODIUM 40 MG TAB PO SCH ×2 (00:08→11:16)
[2018-09-08] MEDS ORDERED: HALOPERIDOL LACTATE 5 MG/ML 1 ML VIAL IM PRN (04:08)
[2018-09-08 06:55] LABS: Glucose,Whole Blood 88 mg/dL (75-99)
[2018-09-08] MEDS ORDERED: metFORMIN 500 MG TAB PO SCH (07:30)
[2018-09-08] MEDS ORDERED: ASPIRIN 81 MG PO SCH (09:00)
[2018-09-08] MEDS ORDERED: LISINOPRIL 10 MG TAB PO SCH (09:00)
[2018-09-08] MEDS ORDERED: DILTIAZEM CD 120 MG CAP.ER.24H PO SCH (09:00)
[2018-09-08] MEDS ORDERED: SODIUM CHLORIDE 0.9% 1,000 ML IV SCH (10:30)
[2018-09-08 11:31] LABS: Glucose,Whole Blood 117 mg/dL (75-99)
[2018-09-08] MEDS: INSULN ASP PRT/INSULIN ASPART 100 UNIT/ML 10 ML VIAL SQ SCH (11:48)
[2018-09-08 11:53] VITALS: RESP 18; TEMP 97.9
--- NOTE | 2018-09-08 12:38 | P.HPIM ---
History of Present Illness H&P Date: 09/08/18 Chief Complaint: Mental status changes HISTORY AND PHYSICAL AND DISCHARGE SUMMARY: This is an 88-year-old female patient of Dr. Shay with past medical history of diabetes mellitus type 2, hypertension, hyperlipidemia. Patient was brought into [facility] emergency center by EMS for evaluation. Patient apparently yesterday had significant mental status changes. Patient did not recognize some family members. Patient does have episodes where she is very stubborn and refuses to do things but this was different from that. She was not oriented at all. She was unable to get out of bed. Notices that sometimes the patient is forgetful but she has not been diagnosed with dementia. She was initially found to have blood pressure 180/99, heart rate was 69, pulse ox 100%. Lab work revealed white count of 6.1, hemoglobin 11.2, platelet count 258. Sodium was 140, potassium 5.5, chloride 105, CO2 26 BUN 27 creatinine 1.27, blood sugar 207. Liver function tests were within normal limits, ammonia less than 9, troponin negative. Urinalysis was cloudy, nitrate negative, leukoesterase small, WBCs 8, hyaline casts 4. EKG was a sinus rhythm with no acute ST-T wave changes. Chest x-ray and CAT scan of the brain were negative for acute findings. Patient was given 1 dose of Rocephin for possible urinary tract infection and admitted to the [facility] floor. Patient is now seen on the [facility] floor. Patient has been very uncooperative she isn't calling all night for Annemarie is now calling for Cate which is her daughter's name. She will not cooperate and take medications. She has a sitter at the bedside. We will plan to discontinue baclofen, no antibiotics, IV fluids if able to maintain access and consult requested with psychiatry. Patient initially was going to be started on Seroquel 0.5 mg at bedtime. After further discussion with the patient's family it was determined the patient will be transferred to a tertiary care center weren't neurology support is available. Patient will be transferred [facility] once all arrangements are completed. Patient's insurance would not allow transfer to [facility]. Patient will be transferred to [facility] today once all arrangements are completed Review of Systems ROS unobtainable: due to mental status Past Medical History Past Medical History: Diabetes Mellitus, Hyperlipidemia, Hypertension, Myocardial Infarction ([place]) Additional Past Medical History / Comment(s): HX OF ANEMIA, STATES WAS TOLD HAD SILENT [place], PT THINKS WHEN SHE WAS AGE 18, WEARS A WIG. Daughter is unaware of any NM or stent placement Last Myocardial Infarction Date:: UNKNOWN History of Any Multi-Drug Resistant Organisms: None Reported Past Surgical History: Appendectomy, Heart Catheterization, Hysterectomy Additional Past Surgical History / Comment(s): BROCK CATARACTS Past Anesthesia/Blood Transfusion Reactions: No Reported Reaction Past Psychological History: No Psychological Hx Reported Smoking Status: Never smoker Past Alcohol Use History: None Reported Past Drug Use History: None Reported - Past Family History Mother Family Medical History: Cancer Additional Family Medical History / Comment(s): LIVER. A detailed family history is unable to be obtained from the patient. Medications and Allergies Home Medications Medication Instructions Recorded Confirmed Type Aspirin [Adult Low Dose Aspirin EC] 81 mg PO QAM 02/29/16 09/08/18 History Diltiazem HCl [Cartia Xt] 120 mg PO QAM 02/29/16 09/08/18 History Lisinopril [Prinivil] 10 mg PO DAILY 02/29/16 09/08/18 History metFORMIN HCL [Glucophage] 500 mg PO BID 02/29/16 09/08/18 History Nitroglycerin Sl Tabs [Nitrostat] 0.4 mg SUBLINGUAL Q5M PRN 05/15/18 09/08/18 History Omeprazole [PriLOSEC] 20 mg PO DAILY 05/15/18 09/08/18 History Acetaminophen with Codeine 1 tab PO Q8H PRN 09/07/18 09/08/18 History [Tylenol w/codeine #3] Baclofen [Lioresal] 5 mg PO TID 09/07/18 09/08/18 History Celecoxib [CeleBREX] 200 mg PO DAILY PRN 09/07/18 09/08/18 History Exenatide Microspheres [Bydureon 2 mg SQ Q7D 09/07/18 09/08/18 History Pen] Insulin NPH Hum/Reg Insulin Hm 5 units SQ BID 09/07/18 09/08/18 History [Relion Novolin 70-30 Flexpen] Multivit with Calcium,Iron,Min 1 tab PO DAILY 09/07/18 09/08/18 History [Women's Multivitamin] Pravastatin Sodium [Pravachol] 40 mg PO HS 09/07/18 09/08/18 History Allergies Allergy/AdvReac Type Severity Reaction Status Date / Time No Known Allergies Allergy Verified 09/08/18 22:13 Physical Exam Vitals: Vital Signs Temp Pulse Pulse Resp BP BP Pulse Ox 09/08/18 08:30 100 181/78 09/08/18 04:37 97.4 F L 93 16 196/83 100 09/07/18 21:51 185/77 09/07/18 20:49 97.4 F L 72 16 99 09/07/18 19:00 78 130/55 99 09/07/18 18:45 57 L 18 154/66 98 09/07/18 17:34 88 20 159/81 98 09/07/18 15:23 56 L 18 171/69 100 09/07/18 12:39 69 18 180/99 100 Intake and Output 09/07/18 09/08/18 09/08/18 22:59 06:59 14:59 Intake Total 50 Balance 50 Intake: Oral 50 Other: Voiding Method Diaper # Voids 2 1 Gen: This is an 88-year-old female. She is sitting up in bed with her legs crossed. She is yelling out for Cate. She will not follow commands. Speech is clear. HEENT: Head is atraumatic, normocephalic. Pupils equal, round. Sclerae is anicteric. NECK: Supple. No JVD. No lymphadenopathy. No thyromegaly. LUNGS: Clear to auscultation. No wheezes or rhonchi. No intercostal retractions. HEART: Regular rate and rhythm. No murmur. ABDOMEN: Soft. Bowel sounds are present. No masses. No tenderness. EXTREMITIES: No pedal edema. No calf tenderness. NEUROLOGICAL: Patient is awake, alert, oriented x0. Cranial nerves 2 through 12 are grossly intact. Results CBC & Chem 7: 09/07/18 13:00 09/07/18 13:00 Labs: Abnormal Lab Results - Last 24 Hours (Table) 09/07/18 09/07/18 09/07/18 Range/Units 13:00 13:00 13:00 RBC 3.65 L (3.80-5.40) m/uL Hgb 11.2 L (11.4-16.0) gm/dL Lymphocytes # 0.7 L (1.0-4.8) k/uL APTT 21.1 L (22.0-30.0) sec Potassium 5.5 H (3.5-5.1) mmol/L BUN 27 H (7-17) mg/dL Creatinine 1.27 H (0.52-1.04) mg/dL Glucose 207 H (74-99) mg/dL POC Glucose (mg/dL) (75-99) mg/dL Urine Appearance (Clear) Urine Protein (Negative) Ur Leukocyte Esterase (Negative) Urine WBC (0-5) /hpf Urine Bacteria (None) /hpf Hyaline Casts (0-2) /lpf Urine Mucus (None) /hpf 09/07/18 09/07/18 09/07/18 Range/Units 13:49 16:50 22:03 RBC (3.80-5.40) m/uL Hgb (11.4-16.0) gm/dL Lymphocytes # (1.0-4.8) k/uL APTT (22.0-30.0) sec Potassium (3.5-5.1) mmol/L BUN (7-17) mg/dL Creatinine (0.52-1.04) mg/dL Glucose (74-99) mg/dL POC Glucose (mg/dL) 178 H 147 H (75-99) mg/dL Urine Appearance Cloudy H (Clear) Urine Protein 2+ H (Negative) Ur Leukocyte Esterase Small H (Negative) Urine WBC 8 H (0-5) /hpf Urine Bacteria Occasional H (None) /hpf Hyaline Casts 4 H (0-2) /lpf Urine Mucus Rare H (None) /hpf Microbiology - Last 24 Hours (Table) 09/07/18 16:50 Urine Culture - Preliminary Urine,Catheterized Thrombosis Risk Factor Assmnt - Choose All That Apply Each Risk Factor Represents 3 Points: Age 75 years or older Thrombosis Risk Factor Assessment Total Risk Factor Score: 3 Thrombosis Risk Factor Assessment Level: Moderate Risk Assessment and Plan Plan: 1. Acute psychosis and acute delirium of unclear etiology. No sign of infection. CAT scan is negative. No neural deficits on exam. Baclofen, Tylenol 3, and metformin will be discontinued. Transfer to [facility] for neurology support. 2. Mild dehydration. Patient will be started on IV fluids if able to maintain IV access. Hold Celebrex. 3. Diabetes mellitus type 2, insulin requiring. NovoLog 70/30, Exenatide and metformin will be discontinued. Patient has had no oral intake as she is refusing to eat. 4. Hypertension. Continue lisinopril 10 mg daily, Cardizem CD 120 mg daily. 5. Hyperlipidemia. Continue Pravachol 40 mg at bedtime. 6. Gastroesophageal reflux disease. Continue omeprazole. Patient will be admitted to the hospital for a minimum of 2 night stay. Impression and plan of care have been directed as dictated by the signing physician. Christina Wadsworth nurse practitioner acting as scribe for signing triston ramos.
[2018-09-08 15:42] VITALS: BP 155/65; PULSE 80
[2018-09-08] MEDS ORDERED: QUEtiapine 25 MG TAB PO SCH (21:00)
== END 2018-09-08 17:05 | disposition short-term general hospital (02) ==
LOC: EC 12:31 → 3NMEDONC 18:24
PROVIDERS: ADMIT Internal Medicine; ATTEND Internal Medicine
DX: F23 Brief psychotic disorder (principal); E11.9 Type 2 diabetes mellitus without complications; I10 Essential (primary) hypertension; E78.5 Hyperlipidemia, unspecified; E86.0 Dehydration; I25.2 Old myocardial infarction; K21.9 Gastro-esophageal reflux disease without esophagitis; Z79.1 Long term (current) use of non-steroidal anti-inflammatories (NSAID); Z79.4 Long term (current) use of insulin; Z79.82 Long term (current) use of aspirin; Z79.899 Other long term (current) drug therapy; Z90.710 Acquired absence of both cervix and uterus; Z98.42 Cataract extraction status, left eye; Z98.41 Cataract extraction status, right eye; Z90.49 Acquired absence of other specified parts of digestive tract
CPT/HCPCS: 96366; 96372; 96365; 96375; 99285; 36415; 93005; 80053; 82140; 84484; 85025; 85610; 85730; 81001; 87040; 87086; 87077; 87186; 71045; 70450; G0378 ×2; J2060; J1630; J0696; J1170

== ENCOUNTER 2018-09-08 20:49 | Inpatient (IN) | payer MEDICARE ==
[2018-09-08] MEDS ORDERED: SODIUM CHLORIDE 0.9% 1,000 ML IV STA (21:46)
--- NOTE | 2018-09-08 22:44 | ED ---
Altered Mental Status HPI - General Chief Complaint: Altered Mental Status Stated Complaint: Confusion Time Seen by Provider: 09/08/18 21:25 Source: patient, family, RN notes reviewed, old records reviewed Mode of arrival: wheelchair Limitations: no limitations - History of Present Illness Initial Comments: This is an 88-year-old female the ER for evaluation presented for evaluation regards to not responding appropriately altered mental status. Psychosis. Patient is recent change in medications. Patient was transferred to [facility] earlier in the day family was unhappy with care there [facility] and brought patient back to this hospital. Patient herself has no without significant change or changing complaints. Emesis patient remains at baseline from prior. Patient was admitted to the hospital 2 days ago prior to transfer. Again patient denies any complaints MD Complaint: altered mental status, confusion -: unknown Severity: mild Consistency of Symptoms: waxing and waning, getting worse Context: history of similar presentation Associated Symptoms: denies other symptoms - Related Data Home Medications Medication Instructions Recorded Confirmed Aspirin [Adult Low Dose Aspirin EC] 81 mg PO QAM 02/29/16 09/08/18 Diltiazem HCl [Cartia Xt] 120 mg PO QAM 02/29/16 09/08/18 Lisinopril [Prinivil] 10 mg PO DAILY 02/29/16 09/08/18 metFORMIN HCL [Glucophage] 500 mg PO BID 02/29/16 09/08/18 Nitroglycerin Sl Tabs [Nitrostat] 0.4 mg SUBLINGUAL Q5M PRN 05/15/18 09/08/18 Omeprazole [PriLOSEC] 20 mg PO DAILY 05/15/18 09/08/18 Acetaminophen with Codeine 1 tab PO Q8H PRN 09/07/18 09/08/18 [Tylenol w/codeine #3] Baclofen [Lioresal] 5 mg PO TID 09/07/18 09/08/18 Celecoxib [CeleBREX] 200 mg PO DAILY PRN 09/07/18 09/08/18 Exenatide Microspheres [Bydureon 2 mg SQ Q7D 09/07/18 09/08/18 Pen] Insulin NPH Hum/Reg Insulin Hm 5 units SQ BID 09/07/18 09/08/18 [Relion Novolin 70-30 Flexpen] Multivit with Calcium,Iron,Min 1 tab PO DAILY 09/07/18 09/08/18 [Women's Multivitamin] Pravastatin Sodium [Pravachol] 40 mg PO HS 09/07/18 09/08/18 Allergies Allergy/AdvReac Type Severity Reaction Status Date / Time No Known Allergies Allergy Verified 09/08/18 22:13 Review of Systems ROS Statement: Those systems with pertinent positive or pertinent negative responses have been documented in the HPI. ROS Other: All systems not noted in ROS Statement are negative. Past Medical History Past Medical History: Diabetes Mellitus, Hyperlipidemia, Hypertension, Myocardial Infarction (CO) Additional Past Medical History / Comment(s): HX OF ANEMIA, STATES WAS TOLD HAD SILENT CO, PT THINKS WHEN SHE WAS AGE 18, WEARS A WIG. Daughter is unaware of any CO or stent placement Last Myocardial Infarction Date:: UNKNOWN History of Any Multi-Drug Resistant Organisms: None Reported Past Surgical History: Appendectomy, Heart Catheterization, Hysterectomy Additional Past Surgical History / Comment(s): BROCK CATARACTS Past Anesthesia/Blood Transfusion Reactions: No Reported Reaction Past Psychological History: No Psychological Hx Reported Smoking Status: Never smoker Past Alcohol Use History: None Reported Past Drug Use History: None Reported - Past Family History Mother Family Medical History: Cancer Additional Family Medical History / Comment(s): LIVER. A detailed family history is unable to be obtained from the patient. General Exam Limitations: no limitations General appearance: alert, in no apparent distress Head exam: Present: atraumatic, normocephalic, normal inspection Eye exam: Present: normal appearance, PERRL, EOMI. Absent: scleral icterus, conjunctival injection, periorbital swelling ENT exam: Present: normal exam, mucous membranes moist Neck exam: Present: normal inspection. Absent: tenderness, meningismus, lymphadenopathy Respiratory exam: Present: normal lung sounds bilaterally. Absent: respiratory distress, wheezes, rales, rhonchi, stridor Cardiovascular Exam: Present: regular rate, normal rhythm, normal heart sounds. Absent: systolic murmur, diastolic murmur, rubs, gallop, clicks GI/Abdominal exam: Present: soft, normal bowel sounds. Absent: distended, tenderness, guarding, rebound, rigid Extremities exam: Present: normal inspection, full ROM, normal capillary refill. Absent: tenderness, pedal edema, joint swelling, calf tenderness Back exam: Present: normal inspection Neurological exam: Present: alert, oriented X3, CN II-XII intact Psychiatric exam: Present: normal affect, normal mood Skin exam: Present: warm, dry, intact, normal color. Absent: rash Course Vital Signs 09/08/18 09/08/18 20:49 23:29 Temperature 99.1 F 98 F Pulse Rate 89 77 Respiratory 18 18 Rate Blood Pressure 170/69 156/84 O2 Sat by Pulse 99 99 Oximetry - Reevaluation(s) Reevaluation #1: 09/08/18 23:50 Is reviewed and patient hospitalization is reviewed, records from [facility] are reviewed Medical Decision Making - Medical Decision Making 88 female the ER for evaluation presents today for evaluation regarding altered mental status psychosis, patient will be admitted for further evaluation management, patient recent complicated hospital course was she was admitted to the ER hospital transferred to [facility] with [facility] and palpation back to this hospital. Family refusing any significant further testing here in the ER Disposition Clinical Impression: Altered mental status Disposition: ADMITTED IP TO THIS HOSP Condition: Fair Is patient prescribed a controlled substance at d/c from ED?: No
[2018-09-09 00:21] LABS: Glucose,Whole Blood 100 mg/dL (75-99)
[2018-09-09 01:51] VITALS: BMI 24.6
[2018-09-09 07:16] LABS: Glucose,Whole Blood 127 mg/dL (75-99)
[2018-09-09] MEDS: SODIUM CHLORIDE 0.9% 1,000 ML IV SCH ×3 (08:51→21:12)
[2018-09-09] MEDS ORDERED: NITROGLYCERIN SL TABS 0.4 MG TAB SUBLINGUAL PRN (10:38)
[2018-09-09 10:56] LABS: HCT 33.4 % (34.0-46.0); HGB 10.6 gm/dL (11.4-16.0); MCH 30.4 pg (25.0-35.0); MCHC 31.8 g/dL (31.0-37.0); MCV 95.5 fL (80.0-100.0); Platelet Count 228 k/uL (150-450); RBC 3.49 m/uL (3.80-5.40); RDW 12.8 % (11.5-15.5); WBC 5.7 k/uL (3.8-10.6)
[2018-09-09 11:08] LABS: Albumin 4.1 g/dL (3.5-5.0); Calcium 9.2 mg/dL (8.4-10.2); Potassium 4.6 mmol/L (3.5-5.1); Total Bilirubin 0.3 mg/dL (0.2-1.3)
[2018-09-09 12:08] LABS: Glucose,Whole Blood 156 mg/dL (75-99)
[2018-09-09] MEDS: PANTOPRAZOLE 40 MG TABLET PO SCH (12:30)
[2018-09-09] MEDS: ASPIRIN 81 MG PO SCH (12:30)
[2018-09-09] MEDS: LISINOPRIL 10 MG TAB PO SCH (12:30)
[2018-09-09] MEDS: MULTIVITAMINS, THERA 1 EACH TAB PO SCH (12:30)
[2018-09-09] MEDS: DILTIAZEM CD 120 MG CAP.ER.24H PO SCH (12:30)
--- NOTE | 2018-09-09 16:04 | P.HPIM ---
<Christina Wadsworth A - Last Filed: 09/09/18 15:56> History of Present Illness H&P Date: 09/09/18 This is an 88-year-old female patient of Dr. Shay with past medical history of diabetes mellitus type 2, hypertension, hyperlipidemia. Patient was brought into [facility] emergency center initially on September 07 by EMS for evaluation for same symptoms and patient was transferred to [facility] for neurology workup and family signed patient out AMA as neurology was not available until the next day. Patient had significant mental status changes. Patient did not recognize some family members. Patient does have episodes where she is very stubborn and refuses to do things but this was different from that. She was not oriented at all. She was unable to get out of bed. Family states that sometimes the patient is forgetful but she has not been diagnosed with dementia. On Monday apparently patient was very confused and tried to bite and hit her . Grandson states that she has had problems with forgetting things and recognizing people or getting names mixed up in the past. Since Monday she has been most worse. Patient returned to [facility] on September 08 after leaving [facility] with same symptoms as above. Blood pressure was 160/62, heart rate 90, afebrile, pulse ox 99% on room air. Repeat lab work today reveals white count of 5.7, hemoglobin 10.6, BUN 21 creatinine 1.10. Sodium 144, potassium 4.6, chloride 111, CO2 24. Blood sugars been running between 100-190. Studies from her initial presentation on September 08: blood pressure 180/99, heart rate was 69, pulse ox 100%. White count of 6.1, hemoglobin 11.2, platelet count 258. Sodium was 140, potassium 5.5, chloride 105, CO2 26 BUN 27 creatinine 1.27, blood sugar 207. Liver function tests were within normal limits, ammonia less than 9, troponin negative. Urinalysis was cloudy, nitrate negative, leukoesterase small, WBCs 8, hyaline casts 4. EKG was a sinus rhythm with no acute ST-T wave changes. Chest x-ray and CAT scan of the brain were negative for acute findings. 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 Daughter is unaware of any SD or stent placement Last Myocardial Infarction Date:: UNKNOWN History of Any Multi-Drug Resistant Organisms: None Reported Past Surgical History: Appendectomy, Heart Catheterization, Hysterectomy Additional Past Surgical History / Comment(s): BROCK CATARACTS Past Anesthesia/Blood Transfusion Reactions: No Reported Reaction Past Psychological History: No Psychological Hx Reported Smoking Status: Never smoker Past Alcohol Use History: None Reported Past Drug Use History: None Reported - Past Family History Mother Family Medical History: Cancer Additional Family Medical History / Comment(s): LIVER. A detailed family history is unable to be obtained from the patient. Medications and Allergies Home Medications Medication Instructions Recorded Confirmed Type Aspirin [Adult Low Dose Aspirin EC] 81 mg PO QAM 02/29/16 09/08/18 History Diltiazem HCl [Cartia Xt] 120 mg PO QAM 02/29/16 09/08/18 History Lisinopril [Prinivil] 10 mg PO DAILY 02/29/16 09/08/18 History metFORMIN HCL [Glucophage] 500 mg PO BID 02/29/16 09/08/18 History Nitroglycerin Sl Tabs [Nitrostat] 0.4 mg SUBLINGUAL Q5M PRN 05/15/18 09/08/18 History Omeprazole [PriLOSEC] 20 mg PO DAILY 05/15/18 09/08/18 History Acetaminophen with Codeine 1 tab PO Q8H PRN 09/07/18 09/08/18 History [Tylenol w/codeine #3] Baclofen [Lioresal] 5 mg PO TID 09/07/18 09/08/18 History Celecoxib [CeleBREX] 200 mg PO DAILY PRN 09/07/18 09/08/18 History Exenatide Microspheres [Bydureon 2 mg SQ Q7D 09/07/18 09/08/18 History Pen] Insulin NPH Hum/Reg Insulin Hm 5 units SQ BID 09/07/18 09/08/18 History [Relion Novolin 70-30 Flexpen] Multivit with Calcium,Iron,Min 1 tab PO DAILY 09/07/18 09/08/18 History [Women's Multivitamin] Pravastatin Sodium [Pravachol] 40 mg PO HS 09/07/18 09/08/18 History Allergies Allergy/AdvReac Type Severity Reaction Status Date / Time No Known Allergies Allergy Verified 09/08/18 22:13 Physical Exam Vitals: Vital Signs Temp Pulse Pulse Resp BP BP Pulse Ox 09/09/18 00:14 98.5 F 90 16 160/62 99 09/08/18 23:29 98 F 77 18 156/84 99 09/08/18 20:49 99.1 F 89 18 170/69 99 Intake and Output 09/08/18 09/09/18 09/09/18 22:59 06:59 14:59 Other: Voiding Method Toilet # Voids 1 Weight 57.153 kg Gen: This is an 88-year-old female. She is sitting up in bed and appears to be comfortable. Sitter is at the bedside. Speech is clear. Patient is able to follow commands and answer questions although answers are not relia ble. Multiple family members are at the bedside including patient's son, grandson and friend. HEENT: Head is atraumatic, normocephalic. Pupils equal, round. Sclerae is anicteric. NECK: Supple. No JVD. No lymphadenopathy. No thyromegaly. LUNGS: Clear to auscultation. No wheezes or rhonchi. No intercostal retractions. HEART: Regular rate and rhythm. No murmur. ABDOMEN: Soft. Bowel sounds are present. No masses. No tenderness. EXTREMITIES: No pedal edema. No calf tenderness. NEUROLOGICAL: Patient is awake, alert, oriented x1. Cranial nerves 2 through 12 are grossly intact. Results CBC & Chem 7: 09/09/18 10:43 09/09/18 10:43 Labs: Abnormal Lab Results - Last 24 Hours (Table) 09/09/18 09/09/18 Range/Units 00:09 07:05 POC Glucose (mg/dL) 100 H 127 H (75-99) mg/dL Thrombosis Risk Factor Assmnt - DVT/VTE Prophylaxis DVT/VTE Prophylaxis: Pharmacologic Prophylaxis ordered Assessment and Plan Plan: 1. Acute psychosis and acute delirium of unclear etiology. No sign of infection. CAT scan is negative. No neural deficits on exam. Baclofen, Tylenol 3 discontinued. Consults requested with psychiatry and neurology. 2. Mild dehydration. Patient will be started on IV fluids at 100 mL per hour. Hold Celebrex. 3. Diabetes mellitus type 2, insulin requiring. NovoLog 70/30, Exenatide discontinued. Continue metformin. 4. Hypertension. Continue lisinopril 10 mg daily, Cardizem CD 120 mg daily. 5. Hyperlipidemia. Continue Pravachol 40 mg at bedtime. 6. Gastroesophageal reflux disease. Continue omeprazole. 7. DVT prophylaxis. Lovenox subcu. Patient will be admitted to the hospital for a minimum of 2 night stay. Discharge plan: To be determined. Impression and plan of care have been directed as dictated by the signing physician. Christina Wadsworth nurse practitioner acting as scribe for signing physician. <Zandra Cornejo - Last Filed: 09/10/18 15:55> Physical Exam Vitals: Vital Signs Temp Pulse Resp BP Pulse Ox 09/10/18 15:00 97.9 F 68 16 159/66 100 09/10/18 08:30 16 09/10/18 07:00 98.1 F 66 16 168/66 100 09/10/18 00:30 98.9 F 74 16 133/57 99 09/09/18 23:17 83 09/09/18 20:10 16 09/09/18 19:36 98.6 F 83 16 147/65 100 Intake and Output 09/10/18 09/10/18 09/10/18 06:59 14:59 22:59 Intake Total 1218 Balance 1218 Intake: Intake, IV Titration 700 Amount Sodium Chloride 0.9% 1, 700 000 ml @ 100 mls/hr IV . Q10H VELVET Rx#:[id number] Oral 518 Other: Voiding Method Toilet # Voids 1 1 Results CBC & Chem 7: 09/09/18 10:43 09/09/18 10:43 Labs: Abnormal Lab Results - Last 24 Hours (Table) 09/09/18 09/09/18 09/10/18 Range/Units 16:54 20:20 06:52 POC Glucose (mg/dL) 215 H 205 H 145 H (75-99) mg/dL 09/10/18 Range/Units 11:36 POC Glucose (mg/dL) 212 H (75-99) mg/dL Assessment and Plan Plan: Urine culture reviewed does suggest urine infection will treat with ceftriaxone
[2018-09-09 17:07] LABS: Glucose,Whole Blood 215 mg/dL (75-99)
--- NOTE | 2018-09-09 19:23 | CONS ---
CONSULTATION DATE OF SERVICE: 09/09/2018 IDENTIFYING DATA: This patient is an 88-year-old [place] female who was admitted to the hospital with complaint of mental status changes. We were asked to consult regarding the same. HISTORY OF PRESENT ILLNESS: The patient is found seated upright in bed. Her grandson is at bedside. He provides some collateral information. The patient's grandson states that as of Monday, the patient had suddenly become confused and was almost nonverbal. She was uttering a one- word statement numerous times. She apparently was admitted here to this hospital. She was transferred to [facility] for neurology evaluation. The patient's family signed her out of their AMA and brought her back to this hospital. The patient is an impaired historian at this time. She indicates her mood is good. She lacks insight as to why she was admitted. She states that she sleeps well. Her appetite stable. She is reporting no auditory visual hallucinations. She is reporting no specific delusions. She reports no suicidal or homicidal ideation, intent, or plan. The patient's grandson states that the patient is doing better already in comparison to Monday. He states that she is much more verbal and interactive. He is unable to characterize if she has had a decline in memory in the recent past. Nursing reports that the patient has been cooperative. 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 Lab work revealed an elevation of BUN and creatinine. Reportedly, she was previously on Tylenol 3 and baclofen. Those are being held. Her urinalysis showed a white blood count of 8. PAST PSYCHIATRIC HISTORY: None reported. PAST MEDICAL HISTORY: Diabetes, hypertension, hyperlipidemia, history of myocardial infarction. CHEMICAL DEPENDENCY HISTORY: None reported. MENTAL STATUS EXAM: The patient is an 88-year-old [place] female, appearing her stated age. She is seated upright in bed, dressed in hospital gowns. She does have some difficulty with hearing. She identifies her mood as being good. She endorses no hopeless thinking. She reports no suicidal or homicidal ideation, intent, or plan. She reports no auditory, visual hallucinations or specific delusions. During our interaction she demonstrated no evidence of psychosis. She attempts to answers questions in a linear fashion. She does appear to be distractible. She is having difficulty retaining information. Short-term memory appears impaired. She is oriented to person, place as [facility]. She identifies the current month as September, the year as 2018. She could not name the day of the week. When asked to remember 3 words, she was able to do so after 2 trials. After a delay of approximately 4 minutes she could not recall any of those words despite cues. When asked to name 5 major cities in the [place] she named 2 and then began naming states and then lost track of the task. She was able to name the days of the week backwards slowly. She was not able to name the months of the year backwards. She began naming them forward and then found herself frustrated with the task. She provided concrete answers with similar questions. She demonstrated no verbal or physical aggressiveness. She demonstrates no involuntary repetitive movements. IMPRESSIONS: 1. Delirium with reported psychosis. 2. Dehydration with elevation of BUN, creatinine, history of diabetes, hypertension, hyperlipidemia, history of coronary artery disease, status post myocardial infarction. PLAN: At this time, the patient is receiving supportive care. Her grandson indicates that she has improved already in comparison to when she initially presented on Monday. Nursing staff reported no agitated behavior. She seems to be more verbal today compared to Monday. She is endorsing no hallucinations or specific delusions. She does appear to have at least some short-term memory deficit. This may be part of the delirium or part of a more insidious neuro cognitive issue. We will not prescribe any antipsychotic medication at this time. We will continue to follow her while medically admitted. She will not require inpatient psychiatric hospitalization. I agree with discontinuing the baclofen and Tylenol 3. Avoid using any benzodiazepines. Avoid using any anticholinergic medications. MMODL / IJN: [id number] /
[2018-09-09 20:22] LABS: Glucose,Whole Blood 205 mg/dL (75-99)
[2018-09-09] MEDS: PRAVASTATIN SODIUM 40 MG TAB PO SCH (21:12)
[2018-09-09] MEDS: metFORMIN 500 MG TAB PO SCH (21:12)
[2018-09-10] MEDS: SODIUM CHLORIDE 0.9% 1,000 ML IV SCH ×3 (07:08→21:08)
[2018-09-10 07:12] LABS: Glucose,Whole Blood 145 mg/dL (75-99)
[2018-09-10] MEDS: ASPIRIN 81 MG PO SCH (08:19)
[2018-09-10] MEDS: DILTIAZEM CD 120 MG CAP.ER.24H PO SCH (08:19)
[2018-09-10] MEDS: MULTIVITAMINS, THERA 1 EACH TAB PO SCH (08:19)
[2018-09-10] MEDS: PANTOPRAZOLE 40 MG TABLET PO SCH (08:19)
[2018-09-10] MEDS: LISINOPRIL 10 MG TAB PO SCH (08:19)
[2018-09-10] MEDS: metFORMIN 500 MG TAB PO SCH ×2 (08:19→21:07)
[2018-09-10 11:47] LABS: Glucose,Whole Blood 212 mg/dL (75-99)
[2018-09-10] MEDS ORDERED: ALPRAZolam 0.25 MG TAB PO PRN (15:48)
--- NOTE | 2018-09-10 15:54 | P.PN ---
Subjective Progress Note Date: 09/10/18 This is an 88-year-old female patient of Dr. Shay with past medical history of diabetes mellitus type 2, hypertension, hyperlipidemia. Patient was brought into [facility] emergency center initially on September 07 by EMS for evaluation for same symptoms and patient was transferred to [facility] for neurology workup and family signed patient out AMA as neurology was not available until the next day. Patient had significant mental status changes. Patient did not recognize some family members. Patient does have episodes where she is very stubborn and refuses to do things but this was different from that. She was not oriented at all. She was unable to get out of bed. Family states that sometimes the patient is forgetful but she has not been diagnosed with dementia. On Monday apparently patient was very confused and tried to bite and hit her . Grandson states that she has had problems with forgetting things and recognizing people or getting names mixed up in the past. Since Monday she has been most worse. Patient returned to [facility] on September 08 after leaving [facility] with same symptoms as above. Blood pressure was 160/62, heart rate 90, afebrile, pulse ox 99% on room air. Repeat lab work today reveals white count of 5.7, hemoglobin 10.6, BUN 21 creatinine 1.10. Sodium 144, potassium 4.6, chloride 111, CO2 24. Blood sugars been running between 100-190. Studies from her initial presentation on September 08: blood pressure 180/99, heart rate was 69, pulse ox 100%. White count of 6.1, hemoglobin 11.2, platelet count 258. Sodium was 140, potassium 5.5, chloride 105, CO2 26 BUN 27 creatinine 1.27, blood sugar 207. Liver function tests were within normal limits, ammonia less than 9, troponin negative. Urinalysis was cloudy, nitrate negative, leukoesterase small, WBCs 8, hyaline casts 4. EKG was a sinus rhythm with no acute ST-T wave changes. Chest x-ray and CAT scan of the brain were negative for acute findings. 8/hives patient was examined bedside was having her meal. Patient does forgets the conversation and is found to be confused intermittently during the conversation but is able to answer questions appropriately. Daughter at bedside feels that patient and looks much better than what she was few days ago. A psychiatry evaluation suggests patient may have some delirium with possible underlying worsening of dementia we'll. Patient would benefit from neurocognitive evaluation as per outpatient. Urinalysis was positive for 8 WBCs. Urine cultures suggest E. coli (sensitive recently initiated patient on ceftriaxone 1 g every 24 hours. Continue hydration with IV fluids. EEG and MRI requested by neurology to rule out seizure. [facility] Objective - Vital Signs Vital signs: Vital Signs Temp 97.9 F 09/10/18 15:00 Pulse 68 09/10/18 15:00 Resp 16 09/10/18 15:00 BP 159/66 09/10/18 15:00 Pulse Ox 100 09/10/18 15:00 Intake & Output 09/09/18 09/10/18 09/10/18 18:59 06:59 18:59 Intake Total 1347 1218 Balance 1347 1218 Intake: Intake, IV Titration 800 700 Amount Sodium Chloride 0.9% 1, 800 700 000 ml @ 100 mls/hr IV . Q10H [facility] Rx#:[id number] Oral 547 518 Other: Voiding Method Toilet # Voids 1 1 1 - Exam ROS Constitutional: Denies chills, Denies fever, Denies lethargy, Denies malaise, Denies poor appetite, Denies weakness, Denies weight loss Eyes: denies decreased vision, denies diplopia, denies discharge, denies pain Cardiovascular: Denies chest pain, Denies decreased exercise tolerance, Denies edema, Denies high blood pressure, Denies irregular heart beat, Denies palpitations, Denies paroxysmal nocturnal dyspnea, Denies rapid heart beat, Denies shortness of breath Respiratory: Denies congestion, Denies cough, Denies cough with sputum, Denies dyspnea, Denies home oxygen, Denies wheezing Gastrointestinal: Denies abdominal pain, Denies change in bowel habits, Denies coffee ground emesis, Denies early satiety, Denies excessive gas, Denies heartburn, Denies hematemesis, Denies hematochezia, Denies loss of appetite, De nies nausea, Denies vomiting Genitourinary: Denies dysuria, Denies flank pain, Denies kidney stones, Denies menorrhagia, Denies urgency, Denies urinary frequency Musculoskeletal: Denies gait dysfunction, Denies limitation of motion, Denies morning stiffness, Denies muscle cramps Neurological: Denies balance difficulties, Denies change in speech, Denies double vision, Denies gait dysfunction, Denies loss of vision, Denies motor disturbance, Denies numbness, Denies paralysis, Denies paresthesias, Denies seizures Psychiatric: Denies anxiety, Denies depression Gen: This is an 88-year-old female. She is sitting up in bed and appears to be comfortable. Sitter is at the bedside. Speech is clear. Patient is able to follow commands and answer questions although answers are not reliab le. Multiple family members are at the bedside including patient's son, grandson and friend. Pleasant to talk today no agitation HEENT: Head is atraumatic, normocephalic. Pupils equal, round. Sclerae is anicteric. NECK: Supple. No JVD. No lymphadenopathy. No thyromegaly. LUNGS: Clear to auscultation. No wheezes or rhonchi. No intercostal retractions. HEART: Regular rate and rhythm. No murmur. ABDOMEN: Soft. Bowel sounds are present. No masses. No tenderness. EXTREMITIES: No pedal edema. No calf tenderness. NEUROLOGICAL: Patient is awake, alert, oriented x2. Cranial nerves 2 through 12 are grossly intact. - Labs CBC & Chem 7: 09/09/18 10:43 09/09/18 10:43 Labs: Abnormal Lab Results - Last 24 Hours (Table) 09/09/18 09/09/18 09/10/18 Range/Units 16:54 20:20 06:52 POC Glucose (mg/dL) 215 H 205 H 145 H (75-99) mg/dL 09/10/18 Range/Units 11:36 POC Glucose (mg/dL) 212 H (75-99) mg/dL Assessment and Plan Plan: 1. Acute psychosis and acute delirium of unclear etiology. Slight infection seen on urinalysis urine culture suggests UTI we will restart patient on Rocephin 1 g every 24 hours for 2 more doses CAT scan is negative. No neural deficits on exam. Baclofen, Tylenol 3 discontinued. Consults requested with psychiatry and neurology. TSH, vitamin B12, folate requested per neurology. MRI and EEG ordered patient needs an outpatient neural cognitive evaluation 2. Mild dehydration. Patient will be started on IV fluids at 100 mL per hour. Hold Celebrex. Creatinine improved since yesterday to 1.13 baseline creatinine close to 1 3. Diabetes mellitus type 2, insulin requiring. NovoLog 70/30, Exenatide discontinued. Continue metformin. This will start patient on Actos patient is not a good candidate for being on insulin due to progressing dementia. 4. Hypertension. Continue lisinopril 10 mg daily, Cardizem CD 120 mg daily. 5. Hyperlipidemia. Continue Pravachol 40 mg at bedtime. 6. Gastroesophageal reflux disease. Continue omeprazole. 7. DVT prophylaxis. Lovenox subcu. Discharge plan likely discharge tomorrow after the MRI
[2018-09-10 16:46] LABS: Glucose,Whole Blood 165 mg/dL (75-99)
[2018-09-10 20:29] LABS: Glucose,Whole Blood 206 mg/dL (75-99)
[2018-09-10] MEDS: PRAVASTATIN SODIUM 40 MG TAB PO SCH (21:07)
--- NOTE | 2018-09-10 22:20 | P.CNNES ---
History of Present Illness Consult date: 09/10/18 Reason for Consult: Altered mental status, hallucinations Chief complaint: Altered mental status, hallucinations History of Present Illness: REFERRING PHYSICIAN: Christina Wadsworth HISTORY OF PRESENT ILLNESS: Thank you for allowing me to evaluate Ms. Maria Elena Conner. Ms. Conner is an 88-year-old woman with past medical history of diabetes, hyperlipidemia, hypertension, GA, anemia, cataracts, presenting with acute onset change in mental status and with ?visual hallucinations. Initially, patient alone in her room, but we were joined by patient's daughter and grandson later on. When asked about what brought patient to hospital, she states she fell walking down the stairs to the basement of her house to say something to her daughter when all of a sudden, she fell back in 03/2018. Patient started having pain in her R leg about 2 weeks after the fall and has continually had this pain. Patient perseverates on the fall and hip pain. Sitter at bedside states that patient was picking at her fingers, as if pulling strings from the ends of her fingers). Daughter states that patient recently (since last /Monday) because altered, where she couldn't even recognize her family members. Patient would continue to ask for her mother and father who have and cry. No rece nt sickness, fevers, headache, diarrhea or constipation. No obvious dysuria/increased frequency suggesting UTI. Patient had told daughter that she had not had a bowel movement for about 3 weeks, but that was a couple of weeks ago and daughter got a suppository. Patient has had significantly decreased appetite, barely eating anything, and daughter feels that patient may be depressed as most of her friends have . Patient used to like shopping and going out, but she stays home most of the time (and patient states it's due to her hip pain). Patient appears better to daughter and grandson Jonathan (patient remembered his name). PAST MEDICAL HISTORY: diabetes, hyperlipidemia, hypertension, GA, anemia, cataracts (pt states she also had uterine cancer when she delivered her second child at age 18/19, but was never treated. Daughter states there is no such history. PAST SURGICAL HISTORY Appendectomy, heart catheterization, hysterectomy HOME MEDICATIONS: Lisinopril 10 mg daily, metformin 500 movements twice a day, diltiazem 120 mg daily, aspirin 81 mg daily, omeprazole 20 minutes daily, Celebrex 20 mg daily, baclofen 5 movements by mouth 3 times a day, Tylenol with codeine 1 tab every 8 hours as needed, insulin NPH 5 units twice a day, Exenatide 2mg SQ q7d, multivitamin ALLERGIES: NO KNOWN DRUG ALLERGIES SOCIAL HISTORY: Denies any smoking, alcohol or drug abuse history. REVIEW OF SYSTEMS: The 14 systems are reviewed and no additional points are identified compared to the review of systems documented history and physical PHYSICAL EXAMINATION: VITAL SIGNS: Temperature 98.1 pulse rate 66 respiratory rate 16 blood pressure 160/60 602 saturation 100% on room air GEN.: NAD, pleasant and cooperatve HEENT: NCAT, sclera without ictrus NECK: Supple SKIN AND EXTREMITIES: Warm to touch, no edema NEURO: MENAL STATUS: Patient alert and oriented to self, place, time. Able to name the current president. Speech fluent, able to name and repeat, following all commands readily. Readily spells WORLD forwards. Unable to spell it backwards or do serial 7's (family states patient was never good with math. daughter tried to re-explain serial 7's in terms of apples or tamales, but patient could not answer appropriately) CRANIAL NERVES II THROUH XII: II: Pupils are equal and reactive to light symmetrically. No afferent pupillary defect. Visual dubon are intact. III, IV, : Mild R eye ptosis. Extraocular movements full. No nystagmus. V: Facial sensation intact from V1-3. VII. No clear facial asymmetry. VIII: Hearing intact to finger rub bilaterally. IX, X: Symmetric palate elevation. XII: Sh oulder shrug intact. XII: Tongue midline without fasciculation or atrophy. MOTOR: Normal bulk/tone. No pronator drift or tremor. Strength is 5/5 throughout all 4 extremities. SENSORY: Intact to light touch, temperature in all 4 extremities. REFLEXES: 2+ throughout. Toes are downgoing. No clonus. Hector's present COORDINATION: Finger to nose intact. No dysmetria. GAIT: Narrow-based, almost magnetic, pt states it's due to pain DIAGNOSTIC TESTING: Laboratory: WBC 5.7 hemoglobin 10.6 platelets 228 sodium 144 potassium 4.6 chloride 111 bicarb 24 BUN 21 creatinine 1.1 glucose 190 calcium 9.2 AST 29 ALT 21 alk phos 83 Imaging: none available at this time ASSESSMENT and PLAN: Ms. Conner is an 88-year-old woman with past medical history of diabetes, hyperlipidemia, hypertension, GA, anemia, cataracts, presenting with acute onset change in mental status and with ?visual hallucinations.Differential diagnosis f or AMS in this patient includes infectious, metabolic, and primary neurologic cuases, such as a seizure or stroke. Patient with no focal deficits but during my eval, patient had a blank stare, looking to the R, for about 5 seconds, not answering my questions, and then came right back to her baseline. On initial eval, patient found with HTN, elevated creatinine, and mildly positive UA with WBC 8. Patient was given IVF and IV Ceftriaxone, which improved patient's mental status. However, patient still not back to baseline per family, and patient had an episode of blank stare, concerning for a seizure episode. RECOMMENDATIONS: 1. Routine EEG 2. MRI brain w/o contrast 3. Obtain AMS work-up: Ammonia (<9), Vitamin B12, folate, BMP, CBC, TSH (3.12) 4. Neurology will continue to follow patient. Past Medical History Past Medical History: Diabetes Mellitus, Hyperlipidemia, Hypertension, Myocardial Infarction (GA) Additional Past Medical History / Comment(s): HX OF ANEMIA, STATES WAS TOLD HAD SILENT GA, PT THINKS WHEN SHE WAS AGE 18, WEARS A WIG. Daughter is unaware of any GA or stent placement Last Myocardial Infarction Date:: UNKNOWN History of Any Multi-Drug Resistant Organisms: None Reported Past Surgical History: Appendectomy, Heart Catheterization, Hysterectomy Additional Past Surgical History / Comment(s): BROCK CATARACTS Past Anesthesia/Blood Transfusion Reactions: No Reported Reaction Past Psychological History: No Psychological Hx Reported Smoking Status: Never smoker Past Alcohol Use History: None Reported Past Drug Use History: None Reported - Past Family History Mother Family Medical History: Cancer Additional Family Medical History / Comment(s): LIVER. A detailed family history is unable to be obtained from the patient. Medications and Allergies Home Medications Medication Instructions Recorded Confirmed Type Aspirin [Adult Low Dose Aspirin EC] 81 mg PO QAM 02/29/16 09/08/18 History Diltiazem HCl [Cartia Xt] 120 mg PO QAM 02/29/16 09/08/18 History Lisinopril [Prinivil] 10 mg PO DAILY 02/29/16 09/08/18 History metFORMIN HCL [Glucophage] 500 mg PO BID 02/29/16 09/08/18 History Nitroglycerin Sl Tabs [Nitrostat] 0.4 mg SUBLINGUAL Q5M PRN 05/15/18 09/08/18 History Omeprazole [PriLOSEC] 20 mg PO DAILY 05/15/18 09/08/18 History Acetaminophen with Codeine 1 tab PO Q8H PRN 09/07/18 09/08/18 History [Tylenol w/codeine #3] Baclofen [Lioresal] 5 mg PO TID 09/07/18 09/08/18 History Celecoxib [CeleBREX] 200 mg PO DAILY PRN 09/07/18 09/08/18 History Exenatide Microspheres [Bydureon 2 mg SQ Q7D 09/07/18 09/08/18 History Pen] Insulin NPH Hum/Reg Insulin Hm 5 units SQ BID 09/07/18 09/08/18 History [Relion Novolin 70-30 Flexpen] Multivit with Calcium,Iron,Min 1 tab PO DAILY 09/07/18 09/08/18 History [Women's Multivitamin] Pravastatin Sodium [Pravachol] 40 mg PO HS 09/07/18 09/08/18 History Allergies Allergy/AdvReac Type Severity Reaction Status Date / Time No Known Allergies Allergy Verified 09/08/18 22:13 Physical Examination - Vital Signs Vital Signs: Vital Signs Temp Pulse Resp BP Pulse Ox 09/10/18 08:30 16 09/10/18 07:00 98.1 F 66 16 168/66 100 09/10/18 00:30 98.9 F 74 16 133/57 99 09/09/18 23:17 83 09/09/18 20:10 16 09/09/18 19:36 98.6 F 83 16 147/65 100 Intake and Output 09/10/18 09/10/18 09/10/18 06:59 14:59 22:59 Intake Total 1218 Balance 1218 Intake: Intake, IV Titration 700 Amount Sodium Chloride 0.9% 1, 700 000 ml @ 100 mls/hr IV . Q10H [facility] Rx#:[id number] Oral 518 Other: Voiding Method Toilet # Voids 1 1 Results - Laboratory Findings CBC and BMP: 09/09/18 10:43 09/09/18 10:43 Abnormal Lab Findings: Abnormal Labs 09/09/18 09/09/18 09/09/18 00:09 07:05 10:43 RBC 3.49 L Hgb 10.6 L Hct 33.4 L Chloride BUN Creatinine Glucose POC Glucose (mg/dL) 100 H 127 H 09/09/18 09/09/18 09/09/18 10:43 11:56 16:54 RBC Hgb Hct Chloride 111 H BUN 21 H Creatinine 1.10 H Glucose 190 H POC Glucose (mg/dL) 156 H 215 H 09/09/18 09/10/18 09/10/18 20:20 06:52 11:36 RBC Hgb Hct Chloride BUN Creatinine Glucose POC Glucose (mg/dL) 205 H 145 H 212 H
--- NOTE | 2018-09-10 22:38 | MR ---
EXAMINATION TYPE: MR brain wo con DATE OF EXAM: 09/10/2018 COMPARISON: CT scan 09/07/2018 HISTORY: AMS TECHNIQUE: T1-weighted sagittal, T2, FLAIR, and diffusion axial, and T2 coronal coronal views of the brain are submitted. FINDINGS: There is no evidence of acute ischemia. The ventricles, basal cisterns, and sulci overlying the conv exities are consistent with mild degenerative change. There is diffuse areas of abnormal signal surro unding the periventricular white matter and multifocal areas of additional white matter abnormal sign al which are nonspecific but most typical remote ischemia. Calcification in the basal ganglia noted. There is no mass effect. Craniocervical junction maintained. Sella turcica has a normal appearance. No cerebellopontine angle mass. IMPRESSION: 1. Degenerative and nonspecific white matter changes most typical of remote ischemia. 2. There is a small amount of fluid surrounding the optic nerves bilaterally which could be technical . No orbital flattening. This can occasionally be seen with papilledema. Craniocervical junction is m aintained. Correlate clinically.
[2018-09-11 02:16] LABS: Hemoglobin A1C 6.4 % (4.0-6.0)
[2018-09-11 06:50] LABS: Glucose,Whole Blood 113 mg/dL (75-99)
[2018-09-11 07:21] LABS: Basophils # (A) 0.1 k/uL (0-0.2); Basophils % (A) 1 %; Eosinophils # (A) 0.4 k/uL (0-0.7); Eosinophils % (A) 8 %; HCT 31.1 % (34.0-46.0); HGB 9.9 gm/dL (11.4-16.0); Hypochromasia Slight; Lymphocytes % (A) 20 %; MCH 30.9 pg (25.0-35.0); MCHC 31.8 g/dL (31.0-37.0); Mean Platelet Volume 7.2; Monocytes # (A) 0.3 k/uL (0-1.0); Monocytes % (A) 7 %; Neutrophils # (A) 3.1 k/uL (1.3-7.7); Neutrophils % (A) 63 %; Platelet Count 229 k/uL (150-450); RDW 12.8 % (11.5-15.5); WBC 4.9 k/uL (3.8-10.6)
[2018-09-11 07:32] LABS: Albumin 3.3 g/dL (3.5-5.0); Calcium 8.5 mg/dL (8.4-10.2); Potassium 4.2 mmol/L (3.5-5.1); Total Bilirubin 0.4 mg/dL (0.2-1.3)
[2018-09-11 07:54] VITALS: RESP 16
[2018-09-11] MEDS: LISINOPRIL 10 MG TAB PO SCH (08:26)
[2018-09-11] MEDS: metFORMIN 500 MG TAB PO SCH (08:27)
[2018-09-11] MEDS: PANTOPRAZOLE 40 MG TABLET PO SCH (08:27)
[2018-09-11] MEDS: ASPIRIN 81 MG PO SCH (08:27)
[2018-09-11] MEDS: MULTIVITAMINS, THERA 1 EACH TAB PO SCH (08:27)
[2018-09-11] MEDS ORDERED: PIOGLITAZONE 30 MG TAB PO SCH (09:00)
[2018-09-11] MEDS: DILTIAZEM CD 120 MG CAP.ER.24H PO SCH (09:26)
[2018-09-11] MEDS: SODIUM CHLORIDE 0.9% 1,000 ML IV SCH (10:32)
[2018-09-11 11:51] LABS: Glucose,Whole Blood 154 mg/dL (75-99)
[2018-09-11 11:52] LABS: Folate, Serum >24.0 ng/mL
--- NOTE | 2018-09-11 14:54 | P.PN ---
Progress Note - Text Progress Note Date: 09/11/18 SUBJECTIVE/INTERVAL EVENTS: No overnight events. No family at bedside. Patient little bit more somnolent than she was yesterday. Patient states she just woke up. PHYSICAL EXAMINATION: VITAL SIGNS: Temperature 97.9 pulse rate 7316 blood pressure 150/82 with a saturation 97% room air GEN.: NAD, drowsy HEENT: NCAT, sclera without icterus NECK: Supple SKIN AND EXTREMITIES: Warm to touch, no edema NEURO: MENTAL STATUS: Patient alert and oriented to self, place, time. Able to name the current president. Speech fluent, able to name and repeat, following all commands readily. No right and left disorientation, extinction to double simultaneous stimulation, finger agnosia, neglect. CRANIAL NERVES II THROUGH XII: II: Pupils are equal and reactive to light symmetrically. No afferent pupillary defect. Visual dubon are intact. III, IV, : No ptosis. Extraocular movements full. No nystagmus. V: Facial sensation intact from V1-3. VII. No clear facial asymmetry. VIII: Hearing intact to finger rub bilaterally. IX, X: Symmetric palate elevation. XII: Shoulder shrug intact. XII: Tongue midline without fasciculation or atrophy. MOTOR: Normal bulk/tone. No pronator drift or tremor. Patient able to abduction to about 30 bilaterally but unable to abduction further or maintain arms at his gravity after 30 shadi. Biceps and triceps bilaterally 5/5. Wrist flexion and extension 4-/5. Finger strength 4+/5. Otherwise, strength is 5/5 throughout all 4 extremities. SENSORY: Decreased to light touch and pinprick in her hands and feet. Decreased sensation also in the forearms but less in her hands. Patient with decreased sensation to pinprick on lateral upper arms but intact medially. Proprioception intact in both hands and feet. Vibration decreased in the toes the most also with decreased vibration in her ankles. Vibration intact in bilateral upper shoulders. Romberg is negative. REFLEXES: 2+ throughout. Toes are downgoing. Hector's is absent COORDINATION: Finger to nose intact. No dysmetria. GAIT: Deferred as patient drowsy DIAGNOSTICS: Laboratory: WBC 4.9 hemoglobin 9.9 platelets 229 sodium 143 potassium 4.2 chloride 1:15 carbon dioxide 20 BUN 15 prednisone 0.93 glucose 116 vitamin B12 526 folate greater than 24 Imaging: MRI brain without contrast 09/10/2018: Degenerative nonspecific white matter changes most typical of remote ischemia. There is a small amount of fluid surrounding the optic nerves bilaterally which could be technical. No orbital finding. ASSESSMENT and RECOMMENDATION: Ms. Conner is an 88-year-old woman with past medical history of diabetes, hyperlipidemia, hypertension, MD, anemia, cataracts, presenting with acute onset change in mental status and with ?visual hallucinationsDifferential diagnosis for AMS in this patient includes infectious, metabolic, and primary neurologic cuases, such as a seizure or stroke. Patient with no focal deficits but during my eval, patient had a blank stare, looking to the R, for about 5 seconds, not answering my questions, and then came right back to her baseline. On initial eval, patient found with HTN, elevated creatinine, and mildly positive UA with WBC 8. Patient was given IVF and IV Ceftriaxone, which improved patient's mental status. However, patient still not back to baseline per family, and patient had an episode of blank stare, concerning for a seizure episode. EEG with mild diffuse slowing, which is nonspecific. Pt's symptoms may have been due to her UTI, depression on top of patient possibly having vascular dementia. Diagnosis to be made in an outpatient setting. RECOMMENDATIONS: 1. Routine EEG obtained this morning. Final read per Dr. Mary, mild diffuse slowing but a limited study due to muscle artifact. No epileptiform discharges or seizure noted. Diffuse slowing is a nonspecific finding. 2. MRI brain w/o contrast with nonspecific white matter changes most typical of remote ischemia. Patient may be undergoing vascular dementia. Recommend follow-up with an outpatient neurologist. 3. Obtain AMS work-up: Ammonia (<9), Vitamin B12 526, folate > 24, TSH (3.12) 4. Neurology will sign off at this time. Please call if there's additional questions or concerns.
--- NOTE | 2018-09-11 15:28 | P.DS ---
Providers Date of admission: 09/10/18 08:08 Attending physician: Zandra Cornejo MD Consults: 09/09/18 10:36 Consult Physician Routine Consulting Provider: Blade Rahman Consult Reason/Comments: pyschosis Do you want consulting provider notified?: Yes 09/10/18 08:44 Consult Physician Routine Consulting Provider: Tawanna Ding Consult Reason/Comments: Altered Mental Status, confused to where patient was nonverbal Do you want consulting provider notified?: Yes Primary care physician: Connor Shay [facility] Course: This is an 88-year-old female patient of Dr. Shay with past medical history of diabetes mellitus type 2, hypertension, hyperlipidemia. Patient was brought into [facility] emergency center initially on September 07 by EMS for evaluation for same symptoms and patient was transferred to [facility] for neurology workup and family signed patient out AMA as neurology was not available until the next day. Patient had significant mental status changes. Patient did not recognize some family members. Patient does have episodes where she is very stubborn and refuses to do things but this was different from that. She was not oriented at all. She was unable to get out of bed. Family states that sometimes the patient is forgetful but she has not been diagnosed with dementia. On Monday apparently patient was very confused and tried to bite and hit her . Grandson states that she has had problems with forgetting things and recognizing people or getting names mixed up in the past. Since Monday she has been most worse. Patient returned to [facility] on September 08 after leaving [facility] with same symptoms as above. Blood pressure was 160/62, heart rate 90, afebrile, pulse ox 99% on room air. Repeat lab work today reveals white count of 5.7, hemoglobin 10.6, BUN 21 creatinine 1.10. Sodium 144, potassium 4.6, chloride 111, CO2 24. Blood sugars been running between 100-190. Studies from her initial presentation on September 08: blood pressure 180/99, heart rate was 69, pulse ox 100%. White count of 6.1, hemoglobin 11.2, platelet count 258. Sodium was 140, potassium 5.5, chloride 105, CO2 26 BUN 27 creatinine 1.27, blood sugar 207. Liver function tests were within normal limits, ammonia less than 9, troponin negative. Urinalysis was cloudy, nitrate negative, leukoesterase small, WBCs 8, hyaline casts 4. EKG was a sinus rhythm with no acute ST-T wave changes. Chest x-ray and CAT scan of the brain were negative for acute findings. 8/hives patient was examined bedside was having her meal. Patient does forgets the conversation and is found to be confused intermittently during the conversation but is able to answer questions appropriately. Daughter at bedside feels that patient and looks much better than what she was few days ago. A psychiatry evaluation suggests patient may have some delirium with possible underlying worsening of dementia we'll. Patient would benefit from neurocognitive evaluation as per outpatient. Urinalysis was positive for 8 WBCs. Urine cultures suggest E. coli (sensitive recently initiated patient on ceftriaxone 1 g every 24 hours. Continue hydration with IV fluids. EEG and MRI requested by neurology to rule out seizure. Dementia is not advanced per neurology. 09/11 patient examined bedside is more alert and responding to missions ap propriately. Oriented 3. Patient does report a headache this morning which has improved. EEG was unremarkable except for generalized slowing. MRI suggestive of remote ischemia and no acute changes seen there was a concern for bilateral papilledema but TSH is normal B12 and folate levels are normal neurology evaluated the patient had no further recommendation patient to be followed as outpatient for mural cognitive evaluation. Creatinine is improved, NSAIDs to be taken carefully as patient does not drink or eat at home. Avoid baclofen R any anticholinergic medications. Held insulin and GLP-1. Patient given a new prescription of Actos Discharge diagnoses #1 metabolic encephalopathy likely secondary to UTI and dehydration #2 type 2 diabetes #3 acute kidney injury secondary to dehydration #4 mild dementia #5 hypertension #6 hyperlipidemia GERD Discharge plan home with homecare with 24-hour supervision by her daughter and grandson Patient Condition at Discharge: Fair Plan - Discharge Summary Discharge Rx Participant: No New Discharge Prescriptions: New Pioglitazone [Actos] 30 mg PO DAILY #30 tab metFORMIN HCL [Glucophage] 500 mg PO BID #60 tab Continue metFORMIN HCL [Glucophage] 500 mg PO BID Aspirin [Adult Low Dose Aspirin EC] 81 mg PO QAM Nitroglycerin Sl Tabs [Nitrostat] 0.4 mg SUBLINGUAL Q5M PRN PRN Reason: Chest Pain Acetaminophen with Codeine [Tylenol w/codeine #3] 1 tab PO Q8H PRN PRN Reason: Pain Multivit with Calcium,Iron,Min [Women's Multivitamin] 1 tab PO DAILY Diltiazem HCl [Cartia Xt] 120 mg PO QAM #30 cap.er.24h Pravastatin Sodium [Pravachol] 40 mg PO HS #30 tab Omeprazole [PriLOSEC] 20 mg PO DAILY #30 capsule. Lisinopril [Prinivil] 10 mg PO DAILY #30 tablet Discontinued Celecoxib [CeleBREX] 200 mg PO DAILY PRN PRN Reason: Pain Baclofen [Lioresal] 5 mg PO TID Insulin NPH Hum/Reg Insulin Hm [Relion Novolin 70-30 Flexpen] 5 units SQ BID Exenatide Microspheres [Bydureon Pen] 2 mg SQ Q7D Discharge Medication List Aspirin [Adult Low Dose Aspirin EC] 81 mg PO QAM 02/29/16 [History] metFORMIN HCL [Glucophage] 500 mg PO BID 02/29/16 [History] Nitroglycerin Sl Tabs [Nitrostat] 0.4 mg SUBLINGUAL Q5M PRN 05/15/18 [History] Acetaminophen with Codeine [Tylenol w/codeine #3] 1 tab PO Q8H PRN 09/07/18 [History] Multivit with Calcium,Iron,Min [Women's Multivitamin] 1 tab PO DAILY 09/07/18 [History] Diltiazem HCl [Cartia Xt] 120 mg PO QAM #30 cap.er.24h 09/11/18 [Rx] Lisinopril [Prinivil] 10 mg PO DAILY #30 tablet 09/11/18 [Rx] Omeprazole [PriLOSEC] 20 mg PO DAILY #30 capsule. 09/11/18 [Rx] Pioglitazone [Actos] 30 mg PO DAILY #30 tab 09/11/18 [Rx] Pravastatin Sodium [Pravachol] 40 mg PO HS #30 tab 09/11/18 [Rx] metFORMIN HCL [Glucophage] 500 mg PO BID #60 tab 09/11/18 [Rx] Follow up Appointment(s)/Referral(s): [facility] [NON-STAFF] - As Needed Connor Shay MD [Primary Care Provider] - 1-2 days [facility], [NON-STAFF] - Jm Leon DO [STAFF PHYSICIAN] - 1 Week Patient Instructions/Handouts: Altered Mental Status (ED) Activity/Diet/Wound Care/Special Instructions: [facility] will deliver walker to bedside prior to discharge. Discharge Disposition: HOME WITH HOME HEALTH SERVICES
--- NOTE | 2018-09-11 15:36 | EEG ---
ELECTROENCEPHALOGRAM REPORT PROCEDURE DATE: 09/11/2018. ELECTROENCEPHALOGRAM (EEG) REPORT: TECHNIQUE: A routine 18 channel EEG was performed with video using the 10/20 international placement system. HISTORY: Patient admitted for altered mental status, patient was having hallucinations. Patient recently fell and hurt her hip. OTHER MEDICAL HISTORY: Includes diabetes, hypertension, hyperlipidemia, anemia. CURRENT MEDICATIONS: Xanax, Pravachol, Actos, Protonix, multivitamin, metformin. STUDY DURATION: 20 minutes. FINDINGS: Please note that quality of this study was significantly limited by the presence of muscle artifact involving the bilateral frontotemporal chains. BACKGROUND: In the relatively few artifact-free portions of the recording, the background activity consisted of 7 to 8 hertz rhythmic waveforms symmetric through both posterior quadrants. ACTIVATION: HYPERVENTILATION: Not performed. PHOTIC STIMULATION: No driving seen. SLEEP: Drowsy. ABNORMALITIES: Intermittent diffuse 4 to 6 hertz polymorphic theta range slowing was seen. IMPRESSION: Limited study, abnormal EEG. The diffuse theta range slowing mentioned above is not epileptiform in nature. In combination with the slow background, these findings indicate mild diffuse cerebral dysfunction as may be seen in a toxometabolic encephalopathy. If clinical concern remains for a seizure disorder, would suggest a repeat study. MMODL / IJN: [id number] /
[2018-09-11 15:45] VITALS: BP 163/62; PULSE 66; TEMP 98.4
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
== END 2018-09-11 16:34 | disposition home health service (06) | DRG 689 ==
LOC: EC 20:49 → 4SSUR 22:42 → OBSVTOIN 09-10 08:08
PROVIDERS: ADMIT Internal Medicine; ATTEND Internal Medicine
DX: N39.0 Urinary tract infection, site not specified (principal); G93.41 Metabolic encephalopathy; F23 Brief psychotic disorder; F05 Delirium due to known physiological condition; N17.9 Acute kidney failure, unspecified; B96.20 Unspecified Escherichia coli [E. coli] as the cause of diseases classified elsewhere; E11.9 Type 2 diabetes mellitus without complications; E78.5 Hyperlipidemia, unspecified; E86.0 Dehydration; F03.90 Unspecified dementia, unspecified severity, without behavioral disturbance, psychotic disturbance, mood disturbance, and anxiety; I10 Essential (primary) hypertension; I25.10 Atherosclerotic heart disease of native coronary artery without angina pectoris; I25.2 Old myocardial infarction; K21.9 Gastro-esophageal reflux disease without esophagitis; Z79.1 Long term (current) use of non-steroidal anti-inflammatories (NSAID); Z79.4 Long term (current) use of insulin; Z79.82 Long term (current) use of aspirin; Z79.899 Other long term (current) drug therapy; Z90.710 Acquired absence of both cervix and uterus; M25.551 Pain in right hip; Z91.81 History of falling; Z98.42 Cataract extraction status, left eye; Z98.41 Cataract extraction status, right eye
CPT/HCPCS: 70551; 80053; 82607; 82746; 83036; 84443; 85025; 85027; 95819; 99285

== ENCOUNTER 2018-12-27 10:33 | Inpatient (IN) | payer BC, MEDICARE ==
[2018-12-27 10:38] LABS: Glucose,Whole Blood 128 mg/dL (75-99)
[2018-12-27] MEDS ORDERED: SODIUM CHLORIDE 0.9% 1,000 ML IV STA ×2 (11:29→12:22)
[2018-12-27 11:48] LABS: Basophils # (A) 0.2 k/uL (0-0.2); Basophils % (A) 2 %; Eosinophils # (A) 0.1 k/uL (0-0.7); Eosinophils % (A) 2 %; HCT 31.3 % (34.0-46.0); HGB 10.2 gm/dL (11.4-16.0); Lymphocytes # (A) 0.9 k/uL (1.0-4.8); Lymphocytes % (A) 12 %; MCH 32.7 pg (25.0-35.0); MCHC 32.5 g/dL (31.0-37.0); MCV 100.5 fL (80.0-100.0); Macrocytosis Slight; Mean Platelet Volume 7.2; Monocytes # (A) 0.5 k/uL (0-1.0); Monocytes % (A) 7 %; Neutrophils # (A) 5.9 k/uL (1.3-7.7); Neutrophils % (A) 76 %; Platelet Count 394 k/uL (150-450); RBC 3.11 m/uL (3.80-5.40); RDW 13.7 % (11.5-15.5); WBC 7.7 k/uL (3.8-10.6)
[2018-12-27] MEDS ORDERED: SODIUM CHLORIDE 0.9% 500 ML 500 ML IV STA (11:51)
--- NOTE | 2018-12-27 11:51 | ED ---
Altered Mental Status HPI - General Chief Complaint: Altered Mental Status Stated Complaint: altered mental status Time Seen by Provider: 12/27/18 11:15 Source: family, EMS, RN notes reviewed, old records reviewed Mode of arrival: EMS Limitations: altered mental status - History of Present Illness Initial Comments: This is a 88-year-old female with a history of UTI psychosis diabetes anemia no prior history of stroke was last seen well about 6 or 6:30 yesterday evening by a family member. She seemed to be okay but was somewhat lethargic and sleepy at that time. She was found this morning prior to arrival to be less responsive and less verbal he was brought here for evaluation. No reports of any falls no fevers chills nausea vomiting sweats or other symptoms the patient is unable to give any information. MD Complaint: altered mental status, decreased responsiveness - Related Data Home Medications Medication Instructions Recorded Confirmed Aspirin [Adult Low Dose Aspirin EC] 81 mg PO QAM 02/29/16 12/27/18 metFORMIN HCL [Glucophage] 500 mg PO BID 02/29/16 12/27/18 Nitroglycerin Sl Tabs [Nitrostat] 0.4 mg SUBLINGUAL Q5M PRN 05/15/18 12/27/18 Acetaminophen with Codeine 1 tab PO Q8H PRN 09/07/18 12/27/18 [Tylenol w/codeine #3] Multivit with Calcium,Iron,Min 1 tab PO DAILY 09/07/18 12/27/18 [Women's Multivitamin] Baclofen 2.5 mg PO BID 12/27/18 12/27/18 Previous Rx's Medication Instructions Recorded Diltiazem HCl [Cartia Xt] 120 mg PO QAM #30 cap.er.24h 09/11/18 Lisinopril [Prinivil] 10 mg PO DAILY #30 tablet 09/11/18 Omeprazole [PriLOSEC] 20 mg PO DAILY #30 capsule. 09/11/18 Pioglitazone [Actos] 30 mg PO DAILY #30 tab 09/11/18 Pravastatin Sodium [Pravachol] 40 mg PO HS #30 tab 09/11/18 Allergies Allergy/AdvReac Type Severity Reaction Status Date / Time No Known Allergies Allergy Verified 09/08/18 22:13 Review of Systems ROS Statement: Those systems with pertinent positive or pertinent negative responses have been documented in the HPI. ROS Other: All systems not noted in ROS Statement are negative. Limitations: ROS unobtainable due to patients medical condition Past Medical History Past Medical History: Diabetes Mellitus, Hyperlipidemia, Hypertension, Myocardial Infarction (SC) Additional Past Medical History / Comment(s): HX OF ANEMIA, STATES WAS TOLD HAD SILENT SC, PT THINKS WHEN SHE WAS AGE 18, WEARS A WIG. Daughter is unaware of any SC or stent placement Last Myocardial Infarction Date:: UNKNOWN History of Any Multi-Drug Resistant Organisms: None Reported Past Surgical History: Appendectomy, Heart Catheterization, Hysterectomy Additional Past Surgical History / Comment(s): BROCK CATARACTS Past Anesthesia/Blood Transfusion Reactions: No Reported Reaction Past Psychological History: No Psychological Hx Reported Smoking Status: Never smoker Past Alcohol Use History: None Reported Past Drug Use History: None Reported - Past Family History Mother Family Medical History: Cancer Additional Family Medical History / Comment(s): LIVER. A detailed family history is unable to be obtained from the patient. General Exam - General Exam Comments Initial Comments: Is a well-developed sec appearing female who is lethargic and unable answer questions as she is able to vocalize "oh my God" Limitations: altered mental status, physical limitation General appearance: lethargic Head exam: Present: other (She does demonstrate balding) Eye exam: Present: other (Pupils are approximately 2 mm bilaterally) ENT exam: Present: mucous membranes dry Neck exam: Present: normal inspection, other (No stridor JVD or bruits). Absent: tenderness, meningismus, lymphadenopathy Respiratory exam: Present: normal lung sounds bilaterally. Absent: respiratory distress, wheezes, rales, rhonchi, stridor Cardiovascular Exam: Present: regular rate, normal rhythm, normal heart sounds. Absent: systolic murmur, diastolic murmur, rubs, gallop, clicks GI/Abdominal exam: Present: soft, normal bowel sounds. Absent: distended, tenderness, guarding, rebound, rigid, bruit, pulsatile mass Rectal exam: Present: deferred Extremities exam: Present: normal capillary refill, other (Patient does demonstrate decerebrate posturing to the upper extremities bilaterally) Back exam: Absent: tenderness Neurological exam: Present: altered, motor sensory deficit. Absent: reflexes normal Psychiatric exam: Present: other (Unable to evaluate) Skin exam: Present: warm, dry, intact, other (Some stasis changes to the lower extremities). Absent: rash Course Vital Signs 12/27/18 12/27/18 12/27/18 10:36 11:15 11:30 Temperature 98.7 F 97.6 F 97.9 F Pulse Rate 79 78 78 Respiratory 16 16 17 Rate Blood Pressure 150/111 140/47 137/57 O2 Sat by Pulse 99 100 100 Oximetry 12/27/18 13:34 Temperature 98.3 F Pulse Rate 72 Respiratory 18 Rate Blood Pressure 141/49 O2 Sat by Pulse 100 Oximetry - Reevaluation(s) Reevaluation #1: 12/27/18 14:16 Reevaluation patient revealed no change in her status I did discuss the findings with the patient's family. Reevaluation #2: 12/27/18 14:19 I did discuss the findings with Dr. Hoover from the [facility] stroke work. At this time no intervention is indicated. Patient was not a TPA candidate. Medical Decision Making - Medical Decision Making Patient still remains unchanged with evidence of CVA in the cervical posturing. I did discuss the findings with the patient family also with Dr. Mendez. Patient be admitted for evaluation she'll be placed on Plavix in addition to aspirin. - Lab Data Result diagrams: 12/27/18 10:39 12/27/18 10:39 Lab Results 12/27/18 12/27/18 12/27/18 Range/Units 10:36 10:39 10:39 WBC 7.7 (3.8-10.6) k/uL RBC 3.11 L (3.80-5.40) m/uL Hgb 10.2 L (11.4-16.0) gm/dL Hct 31.3 L (34.0-46.0) % MCV 100.5 H (80.0-100.0) fL MCH 32.7 (25.0-35.0) pg MCHC 32.5 (31.0-37.0) g/dL RDW 13.7 (11.5-15.5) % Plt Count 394 (150-450) k/uL Neutrophils % 76 % Lymphocytes % 12 % Monocytes % 7 % Eosinophils % 2 % Basophils % 2 % Neutrophils # 5.9 (1.3-7.7) k/uL Lymphocytes # 0.9 L (1.0-4.8) k/uL Monocytes # 0.5 (0-1.0) k/uL Eosinophils # 0.1 (0-0.7) k/uL Basophils # 0.2 (0-0.2) k/uL Macrocytosis Slight PT (9.0-12.0) sec INR (<1.2) APTT (22.0-30.0) sec Sodium 140 (137-145) mmol/L Potassium 5.1 (3.5-5.1) mmol/L Chloride 106 (98-107) mmol/L Carbon Dioxide 22 (22-30) mmol/L Anion Gap 12 mmol/L BUN 54 H (7-17) mg/dL Creatinine 1.87 H (0.52-1.04) mg/dL Est GFR (CKD-EPI)AfAm 28 (>60 ml/min/1.73 sqM) Est GFR (CKD-EPI)NonAf 24 (>60 ml/min/1.73 sqM) Glucose 128 H (74-99) mg/dL POC Glucose (mg/dL) 128 H (75-99) mg/dL POC Glu Clinical Specialist ID Rissa Fernandez Plasma Lactic Acid Lobo (0.7-2.0) mmol/L Calcium 9.4 (8.4-10.2) mg/dL Magnesium 1.7 (1.6-2.3) mg/dL Total Bilirubin 0.4 (0.2-1.3) mg/dL AST 20 (14-36) U/L ALT 19 (9-52) U/L Alkaline Phosphatase 72 (38-126) U/L Creatine Kinase 45 (30-135) U/L Troponin I (0.000-0.034) ng/mL Total Protein 6.6 (6.3-8.2) g/dL Albumin 3.7 (3.5-5.0) g/dL 12/27/18 12/27/18 12/27/18 Range/Units 10:39 10:39 10:39 WBC (3.8-10.6) k/uL RBC (3.80-5.40) m/uL Hgb (11.4-16.0) gm/dL Hct (34.0-46.0) % MCV (80.0-100.0) fL MCH (25.0-35.0) pg MCHC (31.0-37.0) g/dL RDW (11.5-15.5) % Plt Count (150-450) k/uL Neutrophils % % Lymphocytes % % Monocytes % % Eosinophils % % Basophils % % Neutrophils # (1.3-7.7) k/uL Lymphocytes # (1.0-4.8) k/uL Monocytes # (0-1.0) k/uL Eosinophils # (0-0.7) k/uL Basophils # (0-0.2) k/uL Macrocytosis PT 9.8 (9.0-12.0) sec INR 0.9 (<1.2) APTT 23.5 (22.0-30.0) sec Sodium (137-145) mmol/L Potassium (3.5-5.1) mmol/L Chloride (98-107) mmol/L Carbon Dioxide (22-30) mmol/L Anion Gap mmol/L BUN (7-17) mg/dL Creatinine (0.52-1.04) mg/dL Est GFR (CKD-EPI)AfAm (>60 ml/min/1.73 sqM) Est GFR (CKD-EPI)NonAf (>60 ml/min/1.73 sqM) Glucose (74-99) mg/dL POC Glucose (mg/dL) (75-99) mg/dL POC Glu Clinical Specialist ID Plasma Lactic Acid Lobo 1.8 (0.7-2.0) mmol/L Calcium (8.4-10.2) mg/dL Magnesium (1.6-2.3) mg/dL Total Bilirubin (0.2-1.3) mg/dL AST (14-36) U/L ALT (9-52) U/L Alkaline Phosphatase (38-126) U/L Creatine Kinase (30-135) U/L Troponin I <0.012 (0.000-0.034) ng/mL Total Protein (6.3-8.2) g/dL Albumin (3.5-5.0) g/dL - EKG Data -: EKG Interpreted by Me (EKG shows sinus rhythm with PACs rate was 78. Interval 148 QRS duration 72) EKG Comments: Sinus rhythm of 78 with PACs. VT interval 148 QRS 72 QT since QTC 44/460 some artifact present no acute ST-T wave changes - Radiology Data Radiology results: report reviewed (I did review the imaging and reports no acute findings or is evidence of ischemic changes no evidence of bleeding no acute obstruction seen on the CT angios.), image reviewed Critical Care Time Critical Care Time: Yes Critical Care Time: 44 x 0 critical care time includes initial presentation with history physical labs x-rays multiple reevaluation the patient response to monitoring and fluids. Multiple discussion with the patient's family regarding findings discussion with the neurologist as well as with Dr. Mendez admission orders and documentation of the above also this does include review of old charting that was available Disposition Clinical Impression: Delirium due to general medical condition, CVA (cerebral vascular accident) Disposition: ADMITTED IP TO THIS [facility] Condition: Serious Referrals: Connor Shay MD [Primary Care Provider] - 1-2 days
[2018-12-27 12:05] LABS: Albumin 3.7 g/dL (3.5-5.0); Calcium 9.4 mg/dL (8.4-10.2); Magnesium 1.7 mg/dL (1.6-2.3); Potassium 5.1 mmol/L (3.5-5.1); Total Bilirubin 0.4 mg/dL (0.2-1.3); Total Protein 6.6 g/dL (6.3-8.2)
--- NOTE | 2018-12-27 12:06 | CT ---
EXAMINATION TYPE: CT brain wo con DATE OF EXAM: 12/27/2018 COMPARISON: 09/07/2018 HISTORY: 88 year-old female with confusion, altered mental status TECHNIQUE: Examination was done in axial plane without intravenous contrast. Coronal and sagittal r econstructions performed. CT DLP: 1389.3 mGycm Automated exposure control for dose reduction was used. FINDINGS: There is no evidence of acute intracranial hemorrhage, acute ischemic changes, mass, mass-effect, or extra-axial fluid collection. There is no effacement of cerebral sulci or basal subarachnoid cister ns. There is no hydrocephalus. There is no midline shift. Jarquin-white matter distinction is preserv ed. Mild/moderate generalized supratentorial volume loss with moderate confluent white matter hypodensiti es in both cerebral hemispheres are redemonstrated. Mild ventricular prominence secondary to central cerebral artery is unchanged. Dystrophic calcification left occipital lobe is stable as are benign ba johnna ganglionic calcifications. The right vertebral artery appears dominant with prominent prostatic calcifications. Additional metas tatic calcifications within the bilateral carotid siphons Trace mucosal thickening ethmoid air cells. Mastoid air cells well pneumatized. Orbits and globes are intact. IMPRESSION: Stable mild to moderate generalized atrophy and confluent changes of chronic small vessel ischemic di sease. No acute intracranial abnormality seen.
[2018-12-27 12:11] LABS: INR 0.9 (<1.2); Partial Thromboplastin Time 23.5 sec (22.0-30.0); Prothrombin Time 9.8 sec (9.0-12.0)
--- NOTE | 2018-12-27 12:28 | CT ---
EXAMINATION TYPE: CT angio head neck DATE OF EXAM: 12/27/2018 COMPARISON: CT brain same day HISTORY: 88-year-old female with confusion, Neuro deficit, acute stroke suspected TECHNIQUE: Contiguous axial scanning of the head and neck performed without and with IV Contrast, pat ient injected with 65 ml mL of Isovue 370. Coronal/sagittal MIP reconstructions performed. 3-D recons tructions generated on a dedicated independent workstation. CT DLP: 1389.3 mGycm Automated exposure control for dose reduction was used. FINDINGS: Neck: Questionable mild circumferential thickening of the visualized thoracic esophagus. Correlation could be made for any potential signs/symptoms of esophagitis. 1.5 cm hypodense nodule left lobe of the thyroid gland. Nonemergent follow-up thyroid ultrasound to naty gilbert evaluate. Mild to moderate atherosclerotic arch calcifications. Bovine configuration to the aortic arch. There is cynk-ly-rrhtfler atherosclerotic narrowing within the proximal left subclavian artery. Scattered mild atherosclerotic calcifications within the left common carotid artery. Moderate arthros copic calcifications within the left carotid bifurcation with mild, less than 50% narrowing within th e left carotid bulb. Moderate to severe stenosis at the proximal right subclavian artery with mild poststenotic dilatation 1.3 cm. Mild atherosclerotic calcifications at the takeoff of the right vertebral artery without any significant narrowing. The right vertebral artery is dominant but both vertebral arteries are patent throughout the course. Moderate atherosclerotic calcifications upper right common carotid artery with moderate atherosclerot ic calcifications at the right carotid bifurcation with mild, less than 50% narrowing in the right ca rotid bulb. Head: The V4 segment left vertebral artery becomes hypoplastic. The right vertebral artery and basilar david ry are patent as is the remainder of the posterior circulation. Mild atherosclerotic calcifications within the carotid siphons. Anterior circulation is patent. No an eurysmal change is seen. IMPRESSION: NECK: 1. MODERATE ATHEROSCLEROTIC CALCIFICATION BILATERAL CAROTID BIFURCATIONS WITH MILD, LESS THAN 50% ALMA ROWING IN THE BILATERAL CAROTID BULBS. 2. DOMINANT RIGHT VERTEBRAL ARTERY. BOTH VERTEBRAL ARTERIES ARE PATENT. 3. BOVINE CONFIGURATION TO THE AORTIC ARCH. MILD TO MODERATE ATHEROSCLEROTIC NARROWING PROXIMAL LEFT SUBCLAVIAN ARTERY. A MORE MODERATE TO SEVERE ATHEROSCLEROTIC NARROWING IS PRESENT AT THE PROXIMAL RIG HT SUBCLAVIAN ARTERY. 4. QUESTIONABLE MILD CIRCUMFERENTIAL WALL THICKENING OF THE VISUALIZED THORACIC ESOPHAGUS. CORRELATE FOR ANY SYMPTOMS OF POSSIBLE ESOPHAGITIS. 5. NONEMERGENT FOLLOW-UP THYROID ULTRASOUND CAN ASSESS A 1.5 CM LEFT THYROID LOBE NODULE. HEAD: 1. V4 SEGMENT LEFT VERTEBRAL ARTERY BECOMES HYPOPLASTIC. 2. OTHERWISE, NO LARGE VESSEL INTRACRANIAL ARTERIAL OCCLUSION OR ANEURYSMAL CHANGE SEEN.
--- NOTE | 2018-12-27 13:05 | XR ---
EXAMINATION TYPE: XR chest 2V DATE OF EXAM: 12/27/2018 COMPARISON: September 07, 2018 HISTORY: Shortness of breath TECHNIQUE: Frontal and lateral views of the chest are obtained. FINDINGS: Scattered senescent parenchymal changes noted. Hyperinflation compatible with COPD. No evidence for infiltrate. No evidence for atelectasis. Heart size is stable. Mediastinal structures are stable and grossly unremarkable. No evidence for hilar prominence. Degenerative changes dorsal spine. IMPRESSION: 1. No evidence for acute pulmonary disease.
[2018-12-27] MEDS ORDERED: ASPIRIN 325 MG TAB PO STA (14:22)
[2018-12-27] MEDS ORDERED: NITROGLYCERIN SL TABS 0.4 MG TAB SUBLINGUAL PRN (14:24)
[2018-12-27] MEDS: SODIUM CHLORIDE 0.9% 1,000 ML IV SCH (14:32)
[2018-12-27 18:01] LABS: Glucose,Whole Blood 110 mg/dL (75-99)
--- NOTE | 2018-12-27 19:39 | P.HPIM ---
History of Present Illness H&P Date: 12/27/18 Chief Complaint: Mental status change weakness and dysarthria This is an 88-year-old female patient of Dr. Shay with past medical history of diabetes mellitus type 2, hypertension, hyperlipidemia. Dementia, osteoporosis, long-term use of insulin, PAD, and anemia, admitted through the emergency room secondary to mental status change, she has underlying history of psychosis, and is not tract infection. She was last seen by a family member yesterday evening around 6 to 6:30 in the afternoon, and was noted to be lethargic at that time, however when they came to check on her this morning, she was less responsive and less verbal, patient cannot provide much history at the emergency room as she was decorticate, obtunded, however this has drastically change during my examination around 7 PM, patient had been more alert more coherent and more responsive, able to recognize family members around grandson and son-in-law, including speech is coherent, with spontaneous, medication, alert oriented 3 however patient was seeing people, was having this for cloud ucinations. Patient currently is hydrated, we'll going to obtain urinalysis with culture, EEG of the brain, consult with neurology. She also comes in with acute kidney failure and clinical dehydration. She has no diarrhea, has been drinking less for the past few days. In the emergency room, she was found to be decorticate posturing, imaging studies shows left carotid stenosis under 50%, however it is moderate to severe stenosis at the proximal right subclavian artery with mild poststenotic dilation 1.2 cm, with mild atherosclerotic calcification on the takeoff of the right vertebral artery without significant narrowing, right internal carotid shows less than 50% narrowing, there is bovine configuration to the aortic arch, mild to moderate atherosclerotic narrowing proximal to the left subclavian artery. 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 Computed tomography scan of the brain stable to mild to moderate generalized atrophy and confluent change of the chronic small vessel ischemic disease, no acute intracranial abnormality seen, EKG shows normal sinus rhythm with PACs, with ST-T wave changes. Acute CVA was suspected based on her clinical examination, this was discussed by the ER physician with Dr. Hoover at [facility], there was no intervention indicated, and patient was not a TPA candidate based on the down time, patient will be started on Plavix in addition to maintaining her aspirin 81 mg, consult with neurology. Creatinine on presentation was 1.87 from a previous of 0.93 2018, B12 was normal, no urinalysis done during this current admission. Hemoglobin 10.2 however based on our clinical examination and had drastic improvement from ER admission, this does not follow clinical response of CVA, EEG of the brain was requested to rule out seizures and she responded well with hydration, ma evaluate for UTI sepsis, she has this will hallucinations Review of Systems Constitutional: Reports as per HPI, Reports lethargy, Reports poor appetite, Denies anorexia, Denies chills, Denies chronic headaches, Denies chronic pain, Denies daytime sleepiness, Denies fatigue, Denies fever, Denies malaise, Denies night sweats, Denies sweats, Denies weakness, Denies weight gain, Denies weight loss Ears, nose, mouth and throat: Reports as per HPI, Denies ant. neck pain, Denies bleeding gums, Denies dental pain, Denies dysphagia, Denies epistaxis, Denies headache, Denies hoarseness, Denies mouth pain, Denies nasal congestion, Denies nasal discharge, Denies neck fullness/pressure, Denies neck lump, Denies nose pain, Denies odynophagia, Denies post-nasal drip, Denies sinus pain, Denies si nus pressure, Denies swelling in mouth, Denies swelling in throat, Denies sore throat, Denies vertigo, Denies voice changes Cardiovascular: Reports as per HPI, Denies chest pain, Denies claudication, Denies decreased exercise tolerance, Denies dyspnea on exertion, Denies edema, Denies high blood pressure, Denies irregular heart beat, Denies leg edema, Denies lightheadedness, Denies orthopnea, Denies palpitations, Denies paroxysmal nocturnal dyspnea, Denies phlebitis, Denies rapid heart beat, Denies shortness of breath, Denies syncope Respiratory: Reports as per HPI, Denies congestion, Denies cough, Denies cough with sputum, Denies dyspnea, Denies excessive sputum, Denies hemoptysis, Denies home oxygen, Denies pain, Denies pain on inspiration, Denies pleurisy, Denies respiratory infections, Denies sleep apnea, Denies snoring, Denies wheezing Gastrointestinal: Reports as per HPI Genitourinary: Reports as per HPI, Reports urge incontinence, Reports urinary frequency Menstruation: Reports as per HPI Musculoskeletal: Reports as per HPI, Reports gait dysfunction (Decubitus ulcer, as she sleeps in a recliner walker assist at home), Reports myalgias Integumentary: Reports as per HPI, Reports wounds (Decubitus right more than left, right heel ulcer 3 cm x 2 cm x 1 cm without S ravinder) Neurological: Reports as per HPI, Reports gait dysfunction Psychiatric: Reports as per HPI, Reports hallucinations Endocrine: Reports as per HPI, Reports cold intolerance, Denies deepening of the voice, Denies excessive sweating, Denies excessive thirst, Denies fatigue, Denies flushing, Denies heat intolerance, Denies high blood sugars, Denies increase in ring/shoe/hat size, Denies low blood sugars, Denies nocturia, Denies palpitations, Denies polydipsia, Denies polyphagia, Denies polyuria, Denies proptosis, Denies recent glucocorticoid use, Denies thyroid mass, Denies weight change Hematologic/Lymphatic: Reports as per HPI, Denies easy bleeding, Denies easy bruising, Denies lymphadenopathy, Denies lymphedema, Denies thrombophilia Allergic/Immunologic: Reports as per HPI, Denies allergic rhinitis, Denies anaphylaxis, Denies angioedema, Denies gluten intolerance, Denies persistent infections, Denies seasonal allergies, Denies urticaria, Denies wheezing Past Medical History Past Medical History: Diabetes Mellitus, Hyperlipidemia, Hypertension, Myocard ial Infarction ([place]) Additional Past Medical History / Comment(s): . Last Myocardial Infarction Date:: UNKNOWN History of Any Multi-Drug Resistant Organisms: None Reported Past Surgical History: Appendectomy, Heart Catheterization, Hysterectomy Additional Past Surgical History / Comment(s): Colonoscopy appendectomy hysterectomy BROCK CATARACTS Past Anesthesia/Blood Transfusion Reactions: No Reported Reaction Past Psychological History: No Psychological Hx Reported Additional Psychological History / Comment(s): Psychosis Smoking Status: Never smoker Past Alcohol Use History: None Reported Past Drug Use History: None Reported - Past Family History Mother Family Medical History: Cancer Additional Family Medical History / Comment(s): Brother from old age 90, father from old age 87. Medications and Allergies Home Medications Medication Instructions Recorded Confirmed Type Aspirin [Adult Low Dose Aspirin EC] 81 mg PO QAM 02/29/16 12/27/18 History metFORMIN HCL [Glucophage] 500 mg PO BID 02/29/16 12/27/18 History Nitroglycerin Sl Tabs [Nitrostat] 0.4 mg SUBLINGUAL Q5M PRN 05/15/18 12/27/18 History Acetaminophen with Codeine 1 tab PO Q8H PRN 09/07/18 12/27/18 History [Tylenol w/codeine #3] Multivit with Calcium,Iron,Min 1 tab PO DAILY 09/07/18 12/27/18 History [Women's Multivitamin] Diltiazem HCl [Cartia Xt] 120 mg PO QAM #30 cap.er.24h 09/11/18 12/27/18 Rx Lisinopril [Prinivil] 10 mg PO DAILY #30 tablet 09/11/18 12/27/18 Rx Omeprazole [PriLOSEC] 20 mg PO DAILY #30 capsule.dr 09/11/18 12/27/18 Rx Pioglitazone [Actos] 30 mg PO DAILY #30 tab 09/11/18 12/27/18 Rx Pravastatin Sodium [Pravachol] 40 mg PO HS #30 tab 09/11/18 12/27/18 Rx Baclofen 2.5 mg PO BID 12/27/18 12/27/18 History Allergies Allergy/AdvReac Type Severity Reaction Status Date / Time No Known Allergies Allergy Verified 09/08/18 22:13 Physical Exam Vitals: Vital Signs Temp Pulse Pulse Resp BP BP Pulse Ox 12/27/18 17:31 85 16 153/61 100 12/27/18 16:29 98.0 F 76 18 139/57 98 12/27/18 14:38 79 20 151/58 100 12/27/18 13:34 98.3 F 72 18 141/49 100 12/27/18 11:30 97.9 F 78 17 137/57 100 12/27/18 11:15 97.6 F 78 16 140/47 100 12/27/18 10:36 98.7 F 79 16 150/111 99 Intake and Output 12/27/18 12/27/18 12/27/18 06:59 14:59 22:59 Other: Weight 63.503 kg - Constitutional General appearance: average body habitus, cooperative, no acute distress - EENT Eyes: EOMI, PERRLA, poor dentition, normal appearance ENT: NA/AT, normal oropharynx - Neck Neck: normal ROM - Respiratory Respiratory: bilateral: CTA, negative: diminished, dullness, rales - Cardiovascular Rhythm: regular Heart sounds: normal: S1, S2 Abnormal Heart Sounds: no systolic murmur, no diastolic murmur, no rub, no S3 Gallop, no S4 Gallop, no click, no other - Gastrointestinal General gastrointestinal: normal bowel sounds, soft - Integumentary Integumentary: normal, normal turgor - Neurologic Neurologic: CNII-XII intact - Musculoskeletal Musculoskeletal: gait normal, strength equal bilaterally - Psychiatric Psychiatric: A&O x's 3, appropriate affect Results CBC & Chem 7: 12/27/18 10:39 12/27/18 10:39 Labs: Abnormal Lab Results - Last 24 Hours (Table) 12/27/18 12/27/18 12/27/18 Range/Units 10:36 10:39 10:39 RBC 3.11 L (3.80-5.40) m/uL Hgb 10.2 L (11.4-16.0) gm/dL Hct 31.3 L (34.0-46.0) % MCV 100.5 H (80.0-100.0) fL Lymphocytes # 0.9 L (1.0-4.8) k/uL BUN 54 H (7-17) mg/dL Creatinine 1.87 H (0.52-1.04) mg/dL Glucose 128 H (74-99) mg/dL POC Glucose (mg/dL) 128 H (75-99) mg/dL 12/27/18 Range/Units 17:56 RBC (3.80-5.40) m/uL Hgb (11.4-16.0) gm/dL Hct (34.0-46.0) % MCV (80.0-100.0) fL Lymphocytes # (1.0-4.8) k/uL BUN (7-17) mg/dL Creatinine (0.52-1.04) mg/dL Glucose (74-99) mg/dL POC Glucose (mg/dL) 110 H (75-99) mg/dL Laboratory Results WBC 7.7 k/uL (3.8-10.6) 12/27/18 10:39 RBC 3.11 m/uL (3.80-5.40) L 12/27/18 10:39 Hgb 10.2 gm/dL (11.4-16.0) L 12/27/18 10:39 Hct 31.3 % (34.0-46.0) L 12/27/18 10:39 MCV 100.5 fL (80.0-100.0) H 12/27/18 10:39 MCH 32.7 pg (25.0-35.0) 12/27/18 10:39 MCHC 32.5 g/dL (31.0-37.0) 12/27/18 10:39 RDW 13.7 % (11.5-15.5) 12/27/18 10:39 Plt Count 394 k/uL (150-450) 12/27/18 10:39 Neutrophils % 76 % 12/27/18 10:39 Lymphocytes % 12 % 12/27/18 10:39 Monocytes % 7 % 12/27/18 10:39 Eosinophils % 2 % 12/27/18 10:39 Basophils % 2 % 12/27/18 10:39 Neutrophils # 5.9 k/uL (1.3-7.7) 12/27/18 10:39 Lymphocytes # 0.9 k/uL (1.0-4.8) L 12/27/18 10:39 Monocytes # 0.5 k/uL (0-1.0) 12/27/18 10:39 Eosinophils # 0.1 k/uL (0-0.7) 12/27/18 10:39 Basophils # 0.2 k/uL (0-0.2) 12/27/18 10:39 Macrocytosis Slight 12/27/18 10:39 PT 9.8 sec (9.0-12.0) 12/27/18 10:39 INR 0.9 (<1.2) 12/27/18 10:39 APTT 23.5 sec (22.0-30.0) 12/27/18 10:39 Sodium 140 mmol/L (137-145) 12/27/18 10:39 Potassium 5.1 mmol/L (3.5-5.1) 12/27/18 10:39 Chloride 106 mmol/L (98-107) 12/27/18 10:39 Carbon Dioxide 22 mmol/L (22-30) 12/27/18 10:39 Anion Gap 12 mmol/L 12/27/18 10:39 BUN 54 mg/dL (7-17) H 12/27/18 10:39 Creatinine 1.87 mg/dL (0.52-1.04) H 12/27/18 10:39 Est GFR (CKD-EPI)AfAm 28 (>60 ml/min/1.73 sqM) 12/27/18 10:39 Est GFR (CKD-EPI)NonAf 24 (>60 ml/min/1.73 sqM) 12/27/18 10:39 Glucose 128 mg/dL (74-99) H 12/27/18 10:39 POC Glucose (mg/dL) 110 mg/dL (75-99) H 12/27/18 17:56 POC Glu Steward/Stewardess ID Dorita Vuong 12/27/18 17:56 Plasma Lactic Acid Lobo 1.8 mmol/L (0.7-2.0) 12/27/18 10:39 Calcium 9.4 mg/dL (8.4-10.2) 12/27/18 10:39 Magnesium 1.7 mg/dL (1.6-2.3) 12/27/18 10:39 Total Bilirubin 0.4 mg/dL (0.2-1.3) 12/27/18 10:39 AST 20 U/L (14-36) 12/27/18 10:39 ALT 19 U/L (9-52) 12/27/18 10:39 Alkaline Phosphatase 72 U/L (38-126) 12/27/18 10:39 Creatine Kinase 45 U/L (30-135) 12/27/18 10:39 Troponin I <0.012 ng/mL (0.000-0.034) 12/27/18 17:18 Total Protein 6.6 g/dL (6.3-8.2) 12/27/18 10:39 Albumin 3.7 g/dL (3.5-5.0) 12/27/18 10:39 Thrombosis Risk Factor Assmnt - DVT/VTE Prophylaxis DVT/VTE Prophylaxis: Mechanical Prophylaxis ordered - Choose All That Apply Each Risk Factor Represents 3 Points: Age 75 years or older Thrombosis Risk Factor Assessment Total Risk Factor Score: 3 Thrombosis Risk Factor Assessment Level: Moderate Risk Assessment and Plan Plan: 1. Acute mental status changes with obtundation and unresponsiveness transient, episode of hallucinations visual,with cortical posturing , significant mental status change, however this has resolved after hydration, EEG of the brain patient will be seen by neurology, TPA was not done as she is not a candidate, no surgical intervention as it is not indicated, this was discussed by the ER to the stroke network, patient would continue on aspirin, we have added Plavix. . CTA neck was performed without any significant internal carotid artery stenosis prognosis remains to be guarded, 2. 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 Diabetes mellitus type 2, insulin requiring. NovoLog 70/30 hold metformin secondary to elevated creatinine 4. Hypertension. Continue lisinopril 10 mg daily, Cardizem CD 120 mg daily. 5. Hyperlipidemia. Continue Pravachol 40 mg at bedtime. 6. Gastroesophageal reflux disease. Continue omeprazole. 7. DVT prophylaxis. Lovenox subcu. 8 History of uterine cancer with prior hysterectomy 9 Decubitus ulcer right side and left side, stage II on the right, stage I on the left sacral, secondary to pressure, frequent diaper change was advised for family members to do at home as well, and local wound care with hydrocolloid, 10 Right heel ulcer suspect chronic, unknown etiology, consult Dr. James for wounds 11 Anemia possibly iron deficiency, check Hemoccult stools, iron studies 12. 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
--- NOTE | 2018-12-27 19:39 | P.CNNES ---
History of Present Illness Consult date: 12/27/18 Requesting physician: Saúl Rosales Reason for Consult: CVA History of Present Illness: Patient is a 88-year-old female, who was brought to the hospital by ambulance at 10:33 AM after she was found in her house to be incoherent, not responding. Patient was unresponsive, not following commands. There was no tongue bite noted. Patient sometimes is incontinent at baseline, therefore uncertain if there was any bladder incontinence. When patient arrived, her blood pressure was 150/111, pulse rate 79 temperature 98.7. Saturation 99%. Patient's grandson and patient's son-in-law were present today. They state that no focal symptoms but reported to them like facial droop, or focal weakness. Patient had a computed tomography scan of head, which revealed stable mild to moderate generalized atrophy and confluent changes of chronic small vessel ischemic disease. No acute intracranial abnormality seen. Patient had a CTA of head and neck. CTA of head showed V4 segment left vertebral artery becomes hypoplastic. Otherwise no large vessel intercranial arterial occlusion or aneurysmal change. CTA of the neck showed moderate atherosclerotic calcification bilateral carotid bifurcation with mild less than 50% narrowing in the bilateral carotid bulbs. Atherosclerotic narrowing proximal left subclavian artery. A more moderate to severe atherosclerotic narrowing is present at the proximal right subclavian ar kori. Questionable circumferential wall thickening of the visualized thoracic esophagus. Correlation for any symptoms of possible esophagitis. The ED physician spoke to the neuro intervention and patient was not considered a candidate for TPA or any mechanical intervention. Patient's EKG showed sinus rhythm with premature atrial complex. Chest x-ray showed no evidence of acute cardiopulmonary disease. Patient's blood test was reviewed. Patient's hemoglobin is 10.2, elevated MCV 100.5. PT/PTT is normal. BUN is 54, creatinine 1.87. This is much worse as compared to her baseline of creatinine 0.93 and BUN 21. Patient's last hemoglobin A1c is 6.4 on 09/09/2018. Liver functions are normal. Troponin is negative. Her B12 is 526 on 09/11/2018, folate 24 and TSH is normal. UA has not been performed yet. Patient had an EEG performed on 09/11/2018, which was a limited study. The di ffuse theta range slowing mentioned is not epileptiform in nature. In combination with the slow background, these findings indicate mild diffuse cerebral dysfunction may be seen in toxic metabolic encephalopathy. Patient was seen by Dr. Ding on 09/18/2018. Patient had an EEG performed and MRI, which revealed degenerative and nonspecific white matter changes most typical of remote ischemia. The small amount of fluid surrounding the optic nerve bilaterally which could be technical. No orbital flattening. This can be seen with papilledema. It it was felt her altered mental status was due to UTI. Patient's grandson and son-in-law also mentions that patient has history of hallucinations, in which she see children playing off and on for the last couple years. Recently she was seeing mirror hanging all over her house. Patient's son-in-law believes that she may be having some memory issues. Patient never smoked, does not drink. She has diabetes for a long time. Review of Systems Patient denies headache problem with the vision. Denies any diplopia. Denies any chest pain shortness of breath wheezing cough, abdominal pain nausea vomiting diarrhea. Past Medical History Past Medical History: Diabetes Mellitus, Hyperlipidemia, Hypertension, Myocardial Infarction ([place]) Additional Past Medical History / Comment(s): . Last Myocardial Infarction Date:: UNKNOWN History of Any Multi-Drug Resistant Organisms: None Reported Past Surgical History: Appendectomy, Heart Catheterization, Hysterectomy Additional Past Surgical History / Comment(s): Colonoscopy appendectomy hysterectomy BROCK CATARACTS Past Anesthesia/Blood Transfusion Reactions: No Reported Reaction Past Psychological History: No Psychological Hx Reported Additional Psychological History / Comment(s): Psychosis Smoking Status: Never smoker Past Alcohol Use History: None Reported Past Drug Use History: None Reported - Past Family History Mother Family Medical History: Cancer Additional Family Medical History / Comment(s): Brother from old age 90, father from old age 87. Medications and Allergies Home Medications Medication Instructions Recorded Confirmed Type Aspirin [Adult Low Dose Aspirin EC] 81 mg PO QAM 02/29/16 12/27/18 History metFORMIN HCL [Glucophage] 500 mg PO BID 02/29/16 12/27/18 History Nitroglycerin Sl Tabs [Nitrostat] 0.4 mg SUBLINGUAL Q5M PRN 05/15/18 12/27/18 History Acetaminophen with Codeine 1 tab PO Q8H PRN 09/07/18 12/27/18 History [Tylenol w/codeine #3] Multivit with Calcium,Iron,Min 1 tab PO DAILY 09/07/18 12/27/18 History [Women's Multivitamin] Diltiazem HCl [Cartia Xt] 120 mg PO QAM #30 cap.er.24h 09/11/18 12/27/18 Rx Lisinopril [Prinivil] 10 mg PO DAILY #30 tablet 09/11/18 12/27/18 Rx Omeprazole [PriLOSEC] 20 mg PO DAILY #30 capsule.dr 09/11/18 12/27/18 Rx Pioglitazone [Actos] 30 mg PO DAILY #30 tab 09/11/18 12/27/18 Rx Pravastatin Sodium [Pravachol] 40 mg PO HS #30 tab 09/11/18 12/27/18 Rx Baclofen 2.5 mg PO BID 12/27/18 12/27/18 History Allergies Allergy/AdvReac Type Severity Reaction Status Date / Time No Known Allergies Allergy Verified 09/08/18 22:13 Physical Examination - Vital Signs Vital Signs: Vital Signs Temp Pulse Pulse Resp BP BP Pulse Ox 12/27/18 17:31 85 16 153/61 100 12/27/18 16:29 98.0 F 76 18 139/57 98 12/27/18 14:38 79 20 151/58 100 12/27/18 13:34 98.3 F 72 18 141/49 100 12/27/18 11:30 97.9 F 78 17 137/57 100 12/27/18 11:15 97.6 F 78 16 140/47 100 12/27/18 10:36 98.7 F 79 16 150/111 99 Intake and Output 12/27/18 12/27/18 12/27/18 06:59 14:59 22:59 Other: Weight 63.503 kg On examination patient is an elderly female, in no distress. Patient is alert and awake. Patient states the year is 19 and that she could not tell the month. She knows it is winter season, and name of the current president and that she isn't [facility] in [facility]. Her speech and language functions are normal. Attention and concentration is slightly decreased fund of knowledge is probably normal for age. Patient has negative palmomental reflex, positive visuospatial apraxia. Her pupils are round and reacting, visual dubon are full, extraocular muscles are intact. Face is symmetric and tongue protrudes the midline. Palatal elevation and sensation normal. On muscle strength testing there is no pronator drift and the strength appears normal in the arms and legs except right ankle which is weak as. Reflexes are 1+ to 2 bilaterally and plantars are probable withdrawal. Patient's big toes are sticking up at baseline. Patient has a pressure sore in the left heel. There is no ataxia for [id number], tone and bulk of muscles normal. Patient did have some hallucination my she was seeing 7 people in the room although there were only a total of 4 including her. Results - Laboratory Findings CBC and BMP: 12/27/18 10:39 12/27/18 10:39 Abnormal Lab Findings: Abnormal Labs 12/27/18 12/27/18 12/27/18 10:36 10:39 10:39 RBC 3.11 L Hgb 10.2 L Hct 31.3 L MCV 100.5 H Lymphocytes # 0.9 L BUN 54 H Creatinine 1.87 H Glucose 128 H POC Glucose (mg/dL) 128 H 12/27/18 17:56 RBC Hgb Hct MCV Lymphocytes # BUN Creatinine Glucose POC Glucose (mg/dL) 110 H Assessment and Plan Assessment: * Altered mental status with unresponsiveness, unclear etiology. Rule out seizure. No focal symptoms were reported, therefore doubt TIA/CVA. * Chronic hallucinations, uncertain related to cognitive impairment, or ocular related, like Eder Tayler syndrome or macular degeneration. Patient at present probably has mild delirium as well, which could be related to dehydra tion with mild to moderate renal insufficiency. Rule out UTI. Plan: * Agree with checking urinalysis with culture to rule out UTI. * Hydration * We will check EEG to rule out any epileptiform activity. * Continue aspirin 81 mg and statins daily.
[2018-12-27] MEDS: INSULIN ASPART (NovoLOG) 100 UNIT/ML VIAL SQ SCH ×2 (20:44→21:00)
[2018-12-27 20:48] LABS: Glucose,Whole Blood 169 mg/dL (75-99)
[2018-12-27] MEDS: BACLOFEN 10 MG TAB PO SCH (20:59)
[2018-12-27] MEDS: metFORMIN 500 MG TAB PO SCH (20:59)
[2018-12-27] MEDS: PRAVASTATIN SODIUM 40 MG TAB PO SCH (20:59)
[2018-12-27] MEDS: FAMOTIDINE 20 MG/2 ML VIAL IV SCH (20:59)
[2018-12-28] MEDS: SODIUM CHLORIDE 0.9% 1,000 ML IV SCH ×3 (02:56→17:09)
[2018-12-28 04:45] LABS: Appearance,Urine Cloudy (Clear); Bacteria,Urine Rare /hpf; Bilirubin,Urine Negative (Negative); Blood,Urine Moderate (Negative); Color,Urine Yellow; Glucose,Urine (UA) Negative (Negative); Granular Casts,Urine 29 /lpf (0); Hyaline Casts,Urine 136 /lpf (0-2); Ketones,Urine Trace (Negative); Leukocyte Esterase,Urine Large (Negative); Mucus,Urine Rare /hpf; Nitrite,Urine Negative (Negative); Protein,Urine 1+ (Negative); RBC,Urine 116 /hpf (0-5); Specific Gravity,Urine 1.028 (1.001-1.035); Squamous Epithelial Cell,Urine <1 /hpf (0-4); Urobilinogen,Urine <2.0 mg/dL (<2.0)
[2018-12-28] MEDS: Acetaminophen-Codeine 300-30mg TAB PO PRN (05:49)
[2018-12-28] MEDS: INSULIN ASPART (NovoLOG) 100 UNIT/ML VIAL SQ SCH ×4 (05:59→21:04)
[2018-12-28 06:12] LABS: Glucose,Whole Blood 94 mg/dL (75-99)
[2018-12-28] MEDS: PANTOPRAZOLE 40 MG TABLET PO SCH (06:43)
[2018-12-28] MEDS: MULTIVITAMINS, THERA 1 EACH TAB PO SCH (08:39)
[2018-12-28] MEDS: LISINOPRIL 10 MG TAB PO SCH (08:39)
[2018-12-28] MEDS: metFORMIN 500 MG TAB PO SCH (08:39)
[2018-12-28] MEDS: BACLOFEN 10 MG TAB PO SCH ×2 (08:39→21:04)
[2018-12-28] MEDS: DILTIAZEM CD 120 MG CAP.ER.24H PO SCH (08:39)
[2018-12-28] MEDS: PIOGLITAZONE 30 MG TAB PO SCH (08:39)
[2018-12-28] MEDS: FAMOTIDINE 20 MG/2 ML VIAL IV SCH (08:40)
[2018-12-28] MEDS: ASPIRIN 325 MG TAB PO SCH (08:40)
[2018-12-28] MEDS ORDERED: CLOPIDOGREL 75 MG TAB PO SCH (09:00)
--- NOTE | 2018-12-28 09:22 | P.CONS ---
History of Present Illness - Reason for Consult Consult date: 12/28/18 Pressure ulcer buttocks, right heel - History of Present Illness This is an 88-year-old female with past medical history of diabetes mellitus type 2, hypertension, hyperlipidemia, dementia, osteoporosis, PAD, and anemia, history of psychosis. Patient was brought into [facility] emergency center due to mental status changes. She was last seen by a family member Monday evening around 6 to 6:30 in the afternoon, and was noted to be lethargic at that time, however, when they came to check on her in the morning, she was less responsive and less verbal. Patient cannot provide much history at the emergency room as she was decorticate, obtunded, however, this was significantly improved later in the evening. She received 2 and half liters of IV fluid. Her initial lab work revealed white count normal at 7.7, hemoglobin 10.2, BUN 54 and creatinine 1.87. Blood sugar 128, lactic acid 1.8, troponins negative, albumin 3.7. Urinalysis cloudy, blood moderate, leukoesterase large, RBCs 116, wbc's 43, hyaline casts 136. CT angios of the head and neck revealed less than 50% narrowing and bilateral carotid bulbs, no large vessel intracranial artery occlusion or aneurysmal change. CAT scan of the brain revealed stable to mild to moderate generalized atrophy and confluent change of the chronic small vessel ischemic disease, no acute intracranial abnormality. EKG shows normal sinus rhythm with PACs, with ST-T wave changes. Acute CVA was suspected and ER physician spoke with Dr. Hoover at [facility] stroke network, there was no intervention indicated, and patient was not a TPA candidat e based on the down time. Patient was started on Plavix in addition to maintaining her aspirin 81 mg neurology consult was added. Regarding decubitus ulcers, patient has unstageable decubitus ulcers to the bilateral buttocks and right heel. Patient thinks that she has had these for a couple weeks. She is complaining of pain to the right hip. She states she uses a walker and there may have been a recent fall. Patient states that she has and drinking okay but did not eat any breakfast that she did not like the food. She states she lives at home with her and her grandson lives in part to home on the back side but is a 15-year-old. Review of Systems Constitutional: Reports fatigue, Reports lethargy, Reports malaise, Reports poor appetite, Reports weakness, Denies chills, Denies fever Eyes: denies blurred vision (chronic), denies pain Ears, nose, mouth and throat: Denies dysphagia, Denies headache, Denies nasal congestion, Denies nasal discharge, Denies sore throat, Denies vertigo Cardiovascular: Denies chest pain, Denies decreased exercise tolerance, Denies dyspnea on exertion, Denies edema, Denies leg edema, Denies lightheadedness, Denies shortness of breath, Denies syncope Respiratory: Denies cough, Denies cough with sputum, Denies dyspnea, Denies hemoptysis, Denies home oxygen, Denies respiratory infections, Denies wheezing Gastrointestinal: Denies abdominal pain, Denies diarrhea, Denies loss of ap petite, Denies nausea, Denies vomiting Genitourinary: Denies difficulty voiding, Denies dysuria, Denies hematuria, Denies urgency, Denies urinary frequency Musculoskeletal: Reports gait dysfunction, Reports muscle weakness, Denies myalgias Integumentary: Reports wounds, Denies pruritus, Denies rash Neurological: Reports change in mentation, Denies headaches, Denies numbness, Denies weakness Psychiatric: Denies anxiety, Denies depression Endocrine: Denies fatigue, Denies weight change Past Medical History Past Medical History: Diabetes Mellitus, Hyperlipidemia, Hypertension, Myocardial Infarction ([place]) Additional Past Medical History / Comment(s): . Last Myocardial Infarction Date:: UNKNOWN History of Any Multi-Drug Resistant Organisms: None Reported Past Surgical History: Appendectomy, Heart Catheterization, Hysterectomy Additional Past Surgical History / Comment(s): Colonoscopy appendectomy hysterectomy BROCK CATARACTS Past Anesthesia/Blood Transfusion Reactions: No Reported Reaction Past Psychological History: No Psychological Hx Reported Additional Psychological History / Comment(s): Psychosis Smoking Status: Never smoker Past Alcohol Use History: None Reported Additional Past Alcohol Use History / Comment(s): Patient states she is a lifelong nonsmoker, no illicit drug use, no alcohol use. She lives at home with her and grandson lives on the backside of the house. He is a 15-year-old. Patient uses a walker to ambulate. She denies any pets in the home. She worked in the past at [employer]. Past Drug Use History: None Reported - Past Family History Mother Family Medical History: Cancer Additional Family Medical History / Comment(s): Brother from old age 90, father from old age 87. Medications and Allergies Home Medications Medication Instructions Recorded Confirmed Type Aspirin [Adult Low Dose Aspirin EC] 81 mg PO QAM 02/29/16 12/27/18 History metFORMIN HCL [Glucophage] 500 mg PO BID 02/29/16 12/27/18 History Nitroglycerin Sl Tabs [Nitrostat] 0.4 mg SUBLINGUAL Q5M PRN 05/15/18 12/27/18 History Acetaminophen with Codeine 1 tab PO Q8H PRN 09/07/18 12/27/18 History [Tylenol w/codeine #3] Multivit with Calcium,Iron,Min 1 tab PO DAILY 09/07/18 12/27/18 History [Women's Multivitamin] Diltiazem HCl [Cartia Xt] 120 mg PO QAM #30 cap.er.24h 09/11/18 12/27/18 Rx Lisinopril [Prinivil] 10 mg PO DAILY #30 tablet 09/11/18 12/27/18 Rx Omeprazole [PriLOSEC] 20 mg PO DAILY #30 capsule.dr 09/11/18 12/27/18 Rx Pioglitazone [Actos] 30 mg PO DAILY #30 tab 09/11/18 12/27/18 Rx Pravastatin Sodium [Pravachol] 40 mg PO HS #30 tab 09/11/18 12/27/18 Rx Baclofen 2.5 mg PO BID 12/27/18 12/27/18 History Allergies Allergy/AdvReac Type Severity Reaction Status Date / Time No Known Allergies Allergy Verified 09/08/18 22:13 Physical Exam Vitals: Vital Signs Temp Pulse Pulse Resp BP BP Pulse Ox 12/28/18 04:00 98.6 F 92 15 143/55 100 12/28/18 00:00 98.1 F 79 15 120/55 100 12/27/18 20:00 98.6 F 81 17 131/56 100 12/27/18 17:31 85 16 153/61 100 12/27/18 16:29 98.0 F 76 18 139/57 98 12/27/18 14:38 79 20 151/58 100 12/27/18 13:34 98.3 F 72 18 141/49 100 12/27/18 11:30 97.9 F 78 17 137/57 100 12/27/18 11:15 97.6 F 78 16 140/47 100 12/27/18 10:36 98.7 F 79 16 150/111 99 Intake and Output 12/27/18 12/28/18 12/28/18 22:59 06:59 14:59 Intake Total 1390 Output Total 1000 Balance 390 Intake: Intake, IV Titration 1150 Amount Sodium Chloride 0.9% 1, 1150 000 ml @ 100 mls/hr IV . Q10H [facility] Rx#:[id number] Oral 240 Output: Urine 1000 Other: Voiding Method Bedside Commode # Voids 2 Weight 57.5 kg Gen: This is an 88-year-old female. Patient is resting in bed and appears to be comfortable and in no acute distress. HEENT: Head is atraumatic, normocephalic. Pupils equal, round. Sclerae is anicteric. Oral mucous membranes are moist. Patient is edentulous. NECK: Supple. No JVD. No lymphadenopathy. No thyromegaly. LUNGS: Clear to auscultation. No wheezes or rhonchi. No intercostal retractions. HEART: Regular rate and rhythm. No murmur. ABDOMEN: Soft. Bowel sounds are present. No masses. No tenderness. EXTREMITIES: No pedal edema. No calf tenderness. Please see nursing docu mentation regarding unstageable decubitus ulcer to the bilateral buttocks and to the right heel. NEUROLOGICAL: Patient is awake, alert and oriented x3. Cranial nerves 2 through 12 are grossly intact. Results Results: Laboratory Results WBC 7.7 k/uL (3.8-10.6) 12/27/18 10:39 RBC 3.11 m/uL (3.80-5.40) L 12/27/18 10:39 Hgb 10.2 gm/dL (11.4-16.0) L 12/27/18 10:39 Hct 31.3 % (34.0-46.0) L 12/27/18 10:39 MCV 100.5 fL (80.0-100.0) H 12/27/18 10:39 MCH 32.7 pg (25.0-35.0) 12/27/18 10:39 MCHC 32.5 g/dL (31.0-37.0) 12/27/18 10:39 RDW 13.7 % (11.5-15.5) 12/27/18 10:39 Plt Count 394 k/uL (150-450) 12/27/18 10:39 Neutrophils % 76 % 12/27/18 10:39 Lymphocytes % 12 % 12/27/18 10:39 Monocytes % 7 % 12/27/18 10:39 Eosinophils % 2 % 12/27/18 10:39 Basophils % 2 % 12/27/18 10:39 Neutrophils # 5.9 k/uL (1.3-7.7) 12/27/18 10:39 Lymphocytes # 0.9 k/uL (1.0-4.8) L 12/27/18 10:39 Monocytes # 0.5 k/uL (0-1.0) 12/27/18 10:39 Eosinophils # 0.1 k/uL (0-0.7) 12/27/18 10:39 Basophils # 0.2 k/uL (0-0.2) 12/27/18 10:39 Macrocytosis Slight 12/27/18 10:39 PT 9.8 sec (9.0-12.0) 12/27/18 10:39 INR 0.9 (<1.2) 12/27/18 10:39 APTT 23.5 sec (22.0-30.0) 12/27/18 10:39 Sodium 140 mmol/L (137-145) 12/27/18 10:39 Potassium 5.1 mmol/L (3.5-5.1) 12/27/18 10:39 Chloride 106 mmol/L (98-107) 12/27/18 10:39 Carbon Dioxide 22 mmol/L (22-30) 12/27/18 10:39 Anion Gap 12 mmol/L 12/27/18 10:39 BUN 54 mg/dL (7-17) H 12/27/18 10:39 Creatinine 1.87 mg/dL (0.52-1.04) H 12/27/18 10:39 Est GFR (CKD-EPI)AfAm 28 (>60 ml/min/1.73 sqM) 12/27/18 10:39 Est GFR (CKD-EPI)NonAf 24 (>60 ml/min/1.73 sqM) 12/27/18 10:39 Glucose 128 mg/dL (74-99) H 12/27/18 10:39 POC Glucose (mg/dL) 94 mg/dL (75-99) 12/28/18 05:53 POC Glu Wire Temperer ID Nataly Isidro Candy 12/28/18 05:53 Plasma Lactic Acid Lobo 1.8 mmol/L (0.7-2.0) 12/27/18 10:39 Calcium 9.4 mg/dL (8.4-10.2) 12/27/18 10:39 Magnesium 1.7 mg/dL (1.6-2.3) 12/27/18 10:39 Total Bilirubin 0.4 mg/dL (0.2-1.3) 12/27/18 10:39 AST 20 U/L (14-36) 12/27/18 10:39 ALT 19 U/L (9-52) 12/27/18 10:39 Alkaline Phosphatase 72 U/L (38-126) 12/27/18 10:39 Ammonia <9 umol/L (<30) 12/28/18 06:18 Creatine Kinase 45 U/L (30-135) 12/27/18 10:39 Troponin I <0.012 ng/mL (0.000-0.034) 12/27/18 22:33 Total Protein 6.6 g/dL (6.3-8.2) 12/27/18 10:39 Albumin 3.7 g/dL (3.5-5.0) 12/27/18 10:39 Triglycerides 211 mg/dL (<150) H 12/28/18 06:18 Cholesterol 211 mg/dL (<200) H 12/28/18 06:18 LDL Cholesterol, Calc 103 mg/dL (0-99) H 12/28/18 06:18 HDL Cholesterol 66 mg/dL (40-60) H 12/28/18 06:18 TSH 2.230 mIU/L (0.465-4.680) 12/28/18 06:18 Urine Color Yellow 12/27/18 03:00 Urine Appearance Cloudy (Clear) H 12/27/18 03:00 Urine pH 7.0 (5.0-8.0) 12/27/18 03:00 Ur Specific [place] 1.028 (1.001-1.035) 12/27/18 03:00 Urine Protein 1+ (Negative) H 12/27/18 03:00 Urine Glucose (UA) Negative (Negative) 12/27/18 03:00 Urine Ketones Trace (Negative) H 12/27/18 03:00 Urine Blood Moderate (Negative) H 12/27/18 03:00 Urine Nitrite Negative (Negative) 12/27/18 03:00 Urine Bilirubin Negative (Negative) 12/27/18 03:00 Urine Urobilinogen <2.0 mg/dL (<2.0) 12/27/18 03:00 Ur Leukocyte Esterase Large (Negative) H 12/27/18 03:00 Urine RBC 116 /hpf (0-5) H 12/27/18 03:00 Urine WBC 43 /hpf (0-5) H 12/27/18 03:00 Ur Squamous Epith Cells <1 /hpf (0-4) 12/27/18 03:00 Urine Bacteria Rare /hpf (None) H 12/27/18 03:00 Hyaline Casts 136 /lpf (0-2) H 12/27/18 03:00 Granular Casts 29 /lpf (0) 12/27/18 03:00 Urine Mucus Rare /hpf (None) H 12/27/18 03:00 CBC & Chem 7: 12/27/18 10:39 12/27/18 10:39 Labs: Abnormal Lab Results - Last 24 Hours (Table) 12/27/18 12/27/18 12/27/18 Range/Units 03:00 10:36 10:39 RBC (3.80-5.40) m/uL Hgb (11.4-16.0) gm/dL Hct (34.0-46.0) % MCV (80.0-100.0) fL Lymphocytes # (1.0-4.8) k/uL BUN 54 H (7-17) mg/dL Creatinine 1.87 H (0.52-1.04) mg/dL Glucose 128 H (74-99) mg/dL POC Glucose (mg/dL) 128 H (75-99) mg/dL Triglycerides (<150) mg/dL Cholesterol (<200) mg/dL LDL Cholesterol, Calc (0-99) mg/dL HDL Cholesterol (40-60) mg/dL Urine Appearance Cloudy H (Clear) Urine Protein 1+ H (Negative) Urine Ketones Trace H (Negative) Urine Blood Moderate H (Negative) Ur Leukocyte Esterase Large H (Negative) Urine RBC 116 H (0-5) /hpf Urine WBC 43 H (0-5) /hpf Urine Bacteria Rare H (None) /hpf Hyaline Casts 136 H (0-2) /lpf Urine Mucus Rare H (None) /hpf 12/27/18 12/27/18 12/27/18 Range/Units 10:39 17:56 20:47 RBC 3.11 L (3.80-5.40) m/uL Hgb 10.2 L (11.4-16.0) gm/dL Hct 31.3 L (34.0-46.0) % MCV 100.5 H (80.0-100.0) fL Lymphocytes # 0.9 L (1.0-4.8) k/uL BUN (7-17) mg/dL Creatinine (0.52-1.04) mg/dL Glucose (74-99) mg/dL POC Glucose (mg/dL) 110 H 169 H (75-99) mg/dL Triglycerides (<150) mg/dL Cholesterol (<200) mg/dL LDL Cholesterol, Calc (0-99) mg/dL HDL Cholesterol (40-60) mg/dL Urine Appearance (Clear) Urine Protein (Negative) Urine Ketones (Negative) Urine Blood (Negative) Ur Leukocyte Esterase (Negative) Urine RBC (0-5) /hpf Urine WBC (0-5) /hpf Urine Bacteria (None) /hpf Hyaline Casts (0-2) /lpf Urine Mucus (None) /hpf 12/28/18 Range/Units 06:18 RBC (3.80-5.40) m/uL Hgb (11.4-16.0) gm/dL Hct (34.0-46.0) % MCV (80.0-100.0) fL Lymphocytes # (1.0-4.8) k/uL BUN (7-17) mg/dL Creatinine (0.52-1.04) mg/dL Glucose (74-99) mg/dL POC Glucose (mg/dL) (75-99) mg/dL Triglycerides 211 H (<150) mg/dL Cholesterol 211 H (<200) mg/dL LDL Cholesterol, Calc 103 H (0-99) mg/dL HDL Cholesterol 66 H (40-60) mg/dL Urine Appearance (Clear) Urine Protein (Negative) Urine Ketones (Negative) Urine Blood (Negative) Ur Leukocyte Esterase (Negative) Urine RBC (0-5) /hpf Urine WBC (0-5) /hpf Urine Bacteria (None) /hpf Hyaline Casts (0-2) /lpf Urine Mucus (None) /hpf Assessment and Plan Plan: This is an 88-year-old female who presented to the hospital with significant mental status changes and unresponsiveness with underlying history of chronic hallucinations of unclear etiology. Patient presents with unstageable decubitus ulcers to bilateral buttocks and to the right heel. Urinalysis is abnormal although patient denies any urinary symptoms. Local wound care and antibiotics will be addressed. Continue supportive care. Further recommendations as patient progresses. The above dictated assessment and findings were discussed with Dr. James. The impression and plan of care have been directed as dictated. Christina Wadsworth nurse practitioner acting as scribe for Dr. James.
[2018-12-28 11:50] LABS: Glucose,Whole Blood 128 mg/dL (75-99)
[2018-12-28 14:44] LABS: Hemoglobin A1C 7.2 % (4.0-6.0)
--- NOTE | 2018-12-28 15:19 | P.PN ---
Subjective Progress Note Date: 12/28/18 This is an 88-year-old female patient of Dr. Shay with past medical history of diabetes mellitus type 2, hypertension, hyperlipidemia. Dementia, osteoporosis, long-term use of insulin, PAD, and anemia, admitted through the emergency room secondary to mental status change, she has underlying history of psychosis, and is not tract infection. She was last seen by a family member yesterday evening around 6 to 6:30 in the afternoon, and was noted to be lethargic at that time, however when they came to check on her this morning, she was less responsive and less verbal, patient cannot provide much history at the emergency room as she was decorticate, obtunded, however this has drastically c hange during my examination around 7 PM, patient had been more alert more coherent and more responsive, able to recognize family members around grandson and son-in-law, including speech is coherent, with spontaneous, medication, alert oriented 3 however patient was seeing people, was having this for hallucinations. Patient currently is hydrated, we'll going to obtain urinalysis with culture, EEG of the brain, consult with neurology. She also comes in with acute kidney failure and clinical dehydration. She has no diarrhea, has been drinking less for the past few days. In the emergency room, she was found to be decorticate posturing, imaging studies shows left carotid stenosis under 50%, however it is moderate to severe stenosis at the proximal right subclavian artery with mild poststenotic dilation 1.2 cm, with mild atherosclerotic calcification on the takeoff of the right vertebral artery without significant narrowing, right internal carotid shows less than 50% narrowing, there is bovine configuration to the aortic arch, mild to moderate atherosclerotic narrowing proximal to the left subclavian artery. 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 Computed tomography scan of the brain stable to mild to moderate generalized atrophy and confluent change of the chronic small vessel ischemic disease, no acute intracranial abnormality seen, EKG shows normal sinus rhythm with PACs, with ST-T wave changes. Acute CVA was suspected based on her clinical examination, this was discussed by the ER physician with Dr. Hoover at [facility], there was no intervention indicated, and patient was not a TPA candidate based on the down time, patient will be started on Plavix in addition to maintaining her aspirin 81 mg, consult with neurology. Creatinine on presentation was 1.87 from a previous of 0.93 2018, B12 was normal, no urinalysis done during this current admission. Hemoglobin 10.2 however based on our clinical examination and had drastic improvement from ER admission, this does not follow clinical response of CVA, EEG of the brain was requested to rule out seizures and she responded well with hydration, ma evaluate for UTI sepsis, she has this will hallucinations 12/28: The patient is seen sitting up in a chair and appears to be in no acute distress. Patient has been evaluated by Dr. James plan for local wound care. Dr. Trujillo is following and EEG report is pending. We will plan to order a right surgical shoe or custom-made shoe for her right foot. manager access updated. PT is recommended subacute rehab. Patient has been afebrile, blood pressure 129/59, heart rate 62, pulse ox 100% on room air. Repeat troponin negative, triglycerides 211, cholesterol 211, LDL 103, HDL 66, TSH 2.230. Hemoglobin A1c is 7.2. Review of Systems Constitutional: Reports lethargy, Reports poor appetite, Denies anorexia, Denies chills, Denies chronic headaches, Denies chronic pain, Denies daytime sleepiness, Denies fatigue, Denies fever, Denies malaise, Denies night sweats, Denies sweats, Denies weakness, Denies weight gain, Denies weight loss Ears, nose, mouth and throat: Denies ant. neck pain, Denies bleeding gums, Denies dental pain, Denies dysphagia, Denies epistaxis, Denies headache, Denies hoarseness, Denies mouth pain, Denies nasal congestion, Denies nasal discharge, Denies neck fullness/pressure, Denies neck lump, Denies nose pain, Denies odynophagia, Denies post-nasal drip, Denies sinus pain, Denies sinus pressure, Denies swelling in mouth, Denies swelling in throat, Denies sore throat, Denies vertigo, Denies voice changes Cardiovascular: Denies chest pain, Denies claudication, Denies decreased exercise tolerance, Denies dyspnea on exertion, Denies edema, Denies high blood pressure, Denies irregular heart beat, Denies leg edema, Denies lightheadedness, Denies orthopnea, Denies palpitations, Denies paroxysmal nocturnal dyspnea, Denies phlebitis, Denies rapid heart beat, Denies shortness of breath, Denies syncope Respiratory: Denies congestion, Denies cough, Denies cough with sputum, Denies dyspnea, Denies excessive sputum, Denies hemoptysis, Denies home oxygen, Denies pain, Denies pain on inspiration, Denies pleurisy, Denies respiratory infections, Denies sleep apnea, Denies snoring, Denies wheezing Gastrointestinal: Denies nausea, denies vomiting, denies diarrhea, denies abdomi nal pain Genitourinary: Denies dysuria, denies frequency Menstruation: Postmenopausal Musculoskeletal: Reports gait dysfunction (Decubitus ulcer, as she sleeps in a recliner walker assist at home), Reports myalgias Integumentary: Reports wounds (Decubitus right more than left, right heel ulcer 3 cm x 2 cm x 1 cm without S ravinder) Neurological: Reports gait dysfunction Psychiatric: Reports hallucinations Endocrine: Reports cold intolerance, Denies deepening of the voice, Denies excessive sweating, Denies excessive thirst, Denies fatigue, Denies flushing, Denies heat intolerance, Denies high blood sugars, Denies increase in ring/shoe/hat size, Denies low blood sugars, Denies nocturia, Denies palpitations, Denies polydipsia, Denies polyphagia, Denies polyuria, Denies proptosis, Denies recent glucocorticoid use, Denies thyroid mass, Denies weight change Hematologic/Lymphatic: Denies easy bleeding, Denies easy bruising, Denies lymphadenopathy, Denies lymphedema, Denies thrombophilia Allergic/Immunologic: Denies allergic rhinitis, Denies anaphylaxis, Denies angioedema, Denies gluten intolerance, Denies persistent infections, Denies seasonal allergies, Denies urticaria, Denies wheezing Objective - Vital Signs Vital signs: Vital Signs Temp 98.6 F 12/28/18 04:00 Pulse 92 12/28/18 04:00 Resp 17 12/28/18 04:00 BP 143/55 12/28/18 04:00 Pulse Ox 100 12/28/18 04:00 Intake & Output 12/27/18 12/28/18 12/28/18 18:59 06:59 18:59 Intake Total 1390 200 Output Total 1000 Balance 390 200 Weight 63.503 kg 57.5 kg Intake: Intake, IV Titration 1150 Amount Sodium Chloride 0.9% 1, 1150 000 ml @ 100 mls/hr IV . Q10H [facility] Rx#:[id number] Oral 240 200 Output: Urine 1000 Other: Voiding Method Bedside Commode # Voids 2 - Exam - Constitutional General appearance: average body habitus, cooperative, no acute distress, daniela ent is sitting up and recliner. - EENT Eyes: EOMI, PERRLA, poor dentition, normal appearance ENT: NA/AT, normal oropharynx - Neck Neck: normal ROM - Respiratory Respiratory: bilateral: CTA, negative: diminished, dullness, rales - Cardiovascular Rhythm: regular Heart sounds: normal: S1, S2 Abnormal Heart Sounds: no systolic murmur, no diastolic murmur, no rub, no S3 G allop, no S4 Gallop, no click, no other - Gastrointestinal General gastrointestinal: normal bowel sounds, soft - Integumentary Integumentary: normal, normal turgor - Neurologic Neurologic: CNII-XII intact - Musculoskeletal Musculoskeletal: gait normal, strength equal bilaterally - Psychiatric Psychiatric: A&O x's 3, appropriate affect - Labs CBC & Chem 7: 12/27/18 10:39 12/27/18 10:39 Labs: Abnormal Lab Results - Last 24 Hours (Table) 12/27/18 12/27/18 12/27/18 Range/Units 03:00 10:39 10:39 RBC 3.11 L (3.80-5.40) m/uL Hgb 10.2 L (11.4-16.0) gm/dL Hct 31.3 L (34.0-46.0) % MCV 100.5 H (80.0-100.0) fL Lymphocytes # 0.9 L (1.0-4.8) k/uL BUN 54 H (7-17) mg/dL Creatinine 1.87 H (0.52-1.04) mg/dL Glucose 128 H (74-99) mg/dL POC Glucose (mg/dL) (75-99) mg/dL Triglycerides (<150) mg/dL Cholesterol (<200) mg/dL LDL Cholesterol, Calc (0-99) mg/dL HDL Cholesterol (40-60) mg/dL Urine Appearance Cloudy H (Clear) Urine Protein 1+ H (Negative) Urine Ketones Trace H (Negative) Urine Blood Moderate H (Negative) Ur Leukocyte Esterase Large H (Negative) Urine RBC 116 H (0-5) /hpf Urine WBC 43 H (0-5) /hpf Urine Bacteria Rare H (None) /hpf Hyaline Casts 136 H (0-2) /lpf Urine Mucus Rare H (None) /hpf 12/27/18 12/27/18 12/28/18 Range/Units 17:56 20:47 06:18 RBC (3.80-5.40) m/uL Hgb (11.4-16.0) gm/dL Hct (34.0-46.0) % MCV (80.0-100.0) fL Lymphocytes # (1.0-4.8) k/uL BUN (7-17) mg/dL Creatinine (0.52-1.04) mg/dL Glucose (74-99) mg/dL POC Glucose (mg/dL) 110 H 169 H (75-99) mg/dL Triglycerides 211 H (<150) mg/dL Cholesterol 211 H (<200) mg/dL LDL Cholesterol, Calc 103 H (0-99) mg/dL HDL Cholesterol 66 H (40-60) mg/dL Urine Appearance (Clear) Urine Protein (Negative) Urine Ketones (Negative) Urine Blood (Negative) Ur Leukocyte Esterase (Negative) Urine RBC (0-5) /hpf Urine WBC (0-5) /hpf Urine Bacteria (None) /hpf Hyaline Casts (0-2) /lpf Urine Mucus (None) /hpf Assessment and Plan Plan: 1. Acute mental status changes with obtundation and unresponsiveness transient, episode of hallucinations visual,with cortical posturing , significant mental status change, however this has resolved after hydration, EEG of the brain patient will be seen by neurology, TPA was not done as she is not a candidate, no surgical intervention as it is not indicated, this was discussed by the ER to the stroke network, patient would continue on aspirin, we have added Plavix. CTA neck was performed without any significant internal carotid artery stenosis prognosis remains to be guarded, 2. 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 Diabetes mellitus type 2, insulin requiring. NovoLog 70/30 hold metformin secondary to elevated creatinine area and hemoglobin A1c 7.2. 4. Hypertension. Continue lisinopril 10 mg daily, Cardizem CD 120 mg daily. 5. Hyperlipidemia. Continue Pravachol 40 mg at bedtime. 6. Gastroesophageal reflux disease. Continue omeprazole. 7. DVT prophylaxis. Lovenox subcu. 8 History of uterine cancer with prior hysterectomy 9 Decubitus ulcer right side and left side, stage II on the right, stage I on the left sacral, secondary to pressure, frequent diaper change was advised for family members to do at home as well, and local wound care with hydrocolloid, 10 Right heel ulcer suspect chronic, unknown etiology, consult Dr. James for wounds, right surgical shoe to be ordered by business case analyst. 11 Anemia possibly iron deficiency, check Hemoccult stools, iron studies 12. 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 PT and OT consults in place. Impression and plan of care have been directed as dictated by the signing physician. Christina Wadsworth nurse practitioner acting as scribe for signing physician.
--- NOTE | 2018-12-28 15:20 | EEG ---
ELECTROENCEPHALOGRAM REPORT DATE OF SERVICE: 12/28/2018. PREAMBLE: This is an 88-year-old female admitted with an episode of altered mental status. This study is performed to evaluate for any encephalopathy, rule out epileptiform activity. EEG FINDINGS: Routine 21 channel awake digital EEG recording was accomplished utilizing the 10-20 international system with bipolar and referential montages. The recording starts and continues with presence of moderate to high amplitude mixed frequencies of 5-6 hertz theta mixed, with 3 hertz delta activity. Background does not seem to be reactive to eye opening or closing. Photic driving response was not seen. Different stages of sleep were not clearly seen. No focal or generalized epileptiform activity was seen. IMPRESSION: This EEG is abnormal due to [id number] background slowing. This is suggestive of generalized cerebral dysfunction, as can be seen with toxic metabolic encephalopathy or due to diffuse structural brain abnormality. No definitive epileptiform activity was seen. MMODL / IJN: [id number] / MTDD
--- NOTE | 2018-12-28 15:24 | P.PN ---
Subjective Progress Note Date: 12/28/18 Patient's niece was present today along with the patient. Patient is doing better. Her mentation is back to baseline. No new concerns. Patient's UA showed large amount of leukocyte Estrace, WBC 43, rare bacteria. Objective - Vital Signs Vital signs: Vital Signs Temp 98.9 F 12/28/18 12:05 Pulse 62 12/28/18 12:05 Resp 14 12/28/18 12:05 BP 129/59 12/28/18 12:05 Pulse Ox 100 12/28/18 12:05 Intake & Output 12/27/18 12/28/18 12/28/18 18:59 06:59 18:59 Intake Total 1390 400 Output Total 1000 Balance 390 400 Weight 63.503 kg 57.5 kg Intake: Intake, IV Titration 1150 Amount Sodium Chloride 0.9% 1, 1150 000 ml @ 100 mls/hr IV . Q10H [facility] Rx#:[id number] Oral 240 400 Output: Urine 1000 Other: Voiding Method Bedside Commode Bedside Commode # Voids 2 - Exam Patient's mentation appears normal. Examination is nonfocal. - Labs CBC & Chem 7: 12/27/18 10:39 12/27/18 10:39 Labs: Abnormal Lab Results - Last 24 Hours (Table) 12/27/18 12/27/18 12/27/18 Range/Units 03:00 17:56 20:47 POC Glucose (mg/dL) 110 H 169 H (75-99) mg/dL Hemoglobin A1c (4.0-6.0) % Triglycerides (<150) mg/dL Cholesterol (<200) mg/dL LDL Cholesterol, Calc (0-99) mg/dL HDL Cholesterol (40-60) mg/dL Urine Appearance Cloudy H (Clear) Urine Protein 1+ H (Negative) Urine Ketones Trace H (Negative) Urine Blood Moderate H (Negative) Ur Leukocyte Esterase Large H (Negative) Urine RBC 116 H (0-5) /hpf Urine WBC 43 H (0-5) /hpf Urine Bacteria Rare H (None) /hpf Hyaline Casts 136 H (0-2) /lpf Urine Mucus Rare H (None) /hpf 12/28/18 12/28/18 12/28/18 Range/Units 06:18 06:18 11:46 POC Glucose (mg/dL) 128 H (75-99) mg/dL Hemoglobin A1c 7.2 H (4.0-6.0) % Triglycerides 211 H (<150) mg/dL Cholesterol 211 H (<200) mg/dL LDL Cholesterol, Calc 103 H (0-99) mg/dL HDL Cholesterol 66 H (40-60) mg/dL Urine Appearance (Clear) Urine Protein (Negative) Urine Ketones (Negative) Urine Blood (Negative) Ur Leukocyte Esterase (Negative) Urine RBC (0-5) /hpf Urine WBC (0-5) /hpf Urine Bacteria (None) /hpf Hyaline Casts (0-2) /lpf Urine Mucus (None) /hpf Assessment and Plan Assessment: * Altered mental status with an episode of unresponsiveness, unclear etiology. Patient has UTI, therefore probably had toxic metabolic encephalopathy. EEG was negative for any seizure activity. No focal symptoms were reported, therefore doubt TIA/CVA. * Chronic hallucinations, uncertain related to cognitive impairment, or ocular related, like Eder Tayler syndrome or macular degeneration. Patient at present probably has mild delirium as well, which could be related to dehy dration with mild to moderate renal insufficiency and a UTI. Plan: * Patient's UA is negative. Treatment of UTI, if indicated, as per IM. * EEG showed no epileptiform activity. No indication for antiepileptic medication. * Hydration * Continue aspirin 81 mg and statins daily. * Please reconsult neurology if any other concerns. We will sign off.
[2018-12-28 16:56] LABS: Glucose,Whole Blood 146 mg/dL (75-99)
[2018-12-28 19:54] LABS: Ferritin 151.8 ng/mL (10.0-291.0)
[2018-12-28 19:57] LABS: % Iron Saturation 20.83 (12.00-45.00)
[2018-12-28 20:37] LABS: Glucose,Whole Blood 148 mg/dL (75-99)
[2018-12-28] MEDS: PRAVASTATIN SODIUM 40 MG TAB PO SCH (21:04)
--- NOTE | 2018-12-28 23:28 | P.CON ---
Consult Note - . Consult date: 12/28/18 Assessment/Plan:: This is an 88-year-old female with past medical history of diabetes mellitus type 2, hypertension, hyperlipidemia, dementia, osteoporosis, PAD, and anemia, history of psychosis. Patient was brought into [facility] emergency center due to mental status changes. She was last seen by a family member Monday evening around 6 to 6:30 in the afternoon, and was noted to be lethargic at that time, however, when they came to check on her in the morning, she was less responsive and less verbal. Patient cannot provide much history at the emergency room as she was decorticate, obtunded, however, this was significantly improved later in the evening. She received 2 and half liters of IV fluid. Her initial lab work revealed white count normal at 7.7, hemoglobin 10.2, BUN 54 and creatinine 1.87. Blood sugar 128, lactic acid 1.8, troponins negative, albumin 3.7. Urinalysis cloudy, blood moderate, leukoesterase large, RBCs 116, wbc's 43, hyaline casts 136. CT angios of the head and neck revealed less than 50% narrowing and bilateral carotid bulbs, no large vessel intracranial artery occlusion or aneurysmal change. CAT scan of the brain revealed stable to mild to moderate generalized atrophy and confluent change of the chronic small vessel ischemic disease, no acute intracranial abnormality. EKG shows normal sinus rhythm with PACs, with ST-T wave changes. Acute CVA was suspected and ER physician spoke with Dr. Hoover at [facility] stroke network, there was no intervention indicated, and patient was not a TPA candidate based on the down time. Patient was started on Plavix in addition to maintaining her aspirin 81 mg neurology consult was added. Regarding decubitus ulcers, patient has unstageable decubitus ulcers to the bilateral buttocks and right heel. Patient thinks that she has had these for a couple weeks. She is complaining of pain to the right hip. She states she uses a walker and there may have been a recent fall. Patient states that she has and drinking okay but did not eat any breakfast that she did not like the food. She states she lives at home with her and her grandson lives close by and does help but is 15-year-old. Please see the consult note as dictated by nurse practitioner Mrs. Christina Wadsworth. 88 year old woman with dementia presents with altered mental status with evidence of dehydration. To be seen by neurology for further evaluation. Afebrile, no leukocytosis and only abnormality noted are the pressure ulcers which are unstageable. Discussed with the nursing staff about need for APS given patients presentation. Will ask for matress given the multiple ulcers and poor functional status. Wound care to the heels with foam and barrier to buttocks. No antibiotics required at this time. I agree with the evaluation, assessment plan as dictated by nurse practitioner Mrs. Christina Wadsworth.
[2018-12-29] MEDS: Acetaminophen-Codeine 300-30mg TAB PO PRN ×2 (02:47→17:28)
[2018-12-29 05:47] LABS: HCT 24.3 % (34.0-46.0); MCH 33.7 pg (25.0-35.0); MCHC 33.7 g/dL (31.0-37.0); MCV 100.3 fL (80.0-100.0); Mean Platelet Volume 6.6; Platelet Count 234 k/uL (150-450); RBC 2.42 m/uL (3.80-5.40); RDW 13.7 % (11.5-15.5); WBC 6.2 k/uL (3.8-10.6)
[2018-12-29 05:53] LABS: HGB 8.2 gm/dL (11.4-16.0)
[2018-12-29 05:56] LABS: Calcium 8.1 mg/dL (8.4-10.2); Potassium 4.4 mmol/L (3.5-5.1)
[2018-12-29 06:56] LABS: Glucose,Whole Blood 149 mg/dL (75-99)
[2018-12-29] MEDS: INSULIN ASPART (NovoLOG) 100 UNIT/ML VIAL SQ SCH ×4 (06:59→21:16)
[2018-12-29] MEDS: PANTOPRAZOLE 40 MG TABLET PO SCH (06:59)
[2018-12-29] MEDS: SODIUM CHLORIDE 0.9% 1,000 ML IV SCH ×2 (06:59→17:57)
[2018-12-29] MEDS: PIOGLITAZONE 30 MG TAB PO SCH (08:12)
[2018-12-29] MEDS: MULTIVITAMINS, THERA 1 EACH TAB PO SCH (08:12)
[2018-12-29] MEDS: ASPIRIN 325 MG TAB PO SCH (08:12)
[2018-12-29] MEDS: LISINOPRIL 10 MG TAB PO SCH (08:12)
[2018-12-29] MEDS: FAMOTIDINE 20 MG TAB PO SCH (08:13)
[2018-12-29] MEDS: BACLOFEN 10 MG TAB PO SCH ×2 (08:13→21:16)
[2018-12-29] MEDS: DILTIAZEM CD 120 MG CAP.ER.24H PO SCH (08:13)
[2018-12-29 11:25] VITALS: BMI 20.6
[2018-12-29 11:51] LABS: Glucose,Whole Blood 184 mg/dL (75-99)
--- NOTE | 2018-12-29 15:52 | P.PN ---
Subjective Progress Note Date: 12/29/18 This is an 88-year-old female patient of Dr. Shay with past medical history of diabetes mellitus type 2, hypertension, hyperlipidemia. Dementia, osteoporosis, long-term use of insulin, PAD, and anemia, admitted through the emergency room secondary to mental status change, she has underlying history of psychosis, and is not tract infection. She was last seen by a family member yesterday evening around 6 to 6:30 in the afternoon, and was noted to be lethargic at that time, however when they came to check on her this morning, she was less responsive and less verbal, patient cannot provide much history at the emergency room as she was decorticate, obtunded, however this has drastically change during my examination around 7 PM, patient had been more alert more coherent and more responsive, able to recognize family members around grandson and son-in-law, including speech is coherent, with spontaneous, medication, alert oriented 3 however patient was seeing people, was having this for hallucinations. Patient currently is hydrated, we'll going to obtain urinalysis with culture, EEG of the brain, consult with neurology. She also comes in with acute kidney failure and clinical dehydration. She has no diarrhea, has been drinking less for the past few days. In the emergency room, she was found to be decorticate posturing, imaging studies shows left carotid stenosis under 50%, however it is moderate to severe stenosis at the proximal right subclavian artery with mild poststenotic dilation 1.2 cm, with mild atherosclerotic calcification on the takeoff of the right vertebral artery without significant narrowing, right internal carotid shows less than 50% narrowing, there is bovine configuration to the aortic arch, mild to moderate atherosclerotic narrowing proximal to the left subclavian artery. 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 Computed tomography scan of the brain stable to mild to moderate generalized atrophy and confluent change of the chronic small vessel ischemic disease, no acute intracranial abnormality seen, EKG shows normal sinus rhythm with PACs, with ST-T wave changes. Acute CVA was suspected based on her clinical examination, this was discussed by the ER physician with Dr. Hoover at [facility], there was no intervention indicated, and patient was not a TPA candidate based on the down time, patient will be started on Plavix in addition to maintaining her aspirin 81 mg, consult with neurology. Creatinine on presentation was 1.87 from a previous of 0.93 2018, B12 was normal, no urinalysis done during this current admission. Hemoglobin 10.2 however based on my clinical examination and had drastic improvement from ER admission, this does not follow clinical response of CVA, EEG of the brain was requested to rule out seizures and she responded well with hydration, ma evaluate for UTI sepsis, she has visual hallucinations 12/28: The patient is seen sitting up in a chair and appears to be in no acute distress. Patient has been evaluated by Dr. James plan for local wound care. Dr. Trujillo is following and EEG report is pending. We will plan to order a right surgical shoe or custom-made shoe for her right foot. actuary manager updated. PT is recommended subacute rehab. Patient has been afebrile, blood pressure 129/59, heart rate 62, pulse ox 100% on room air. Repeat troponin negative, triglycerides 211, cholesterol 211, LDL 103, HDL 66, TSH 2.230. Hemoglobin A1c is 7.2. 12/29, patient remains at baseline, sleeping in the chair, no significant foot pain however patient said mobile as much, patient doesn't have any new hallucinations as noted, appetite is normal, her surgical shoe is still pending to be evaluated, ordered are placed, awaiting subacute rehab at risk for falls cultures are currently pending no hypoglycemia no hypotension hemoglobin of 8.2 possibly Related to hydration, creatinine improving at 1.3 from a previous of 1.87 Review of Systems Constitutional: Reports lethargy, Reports poor appetite, Denies anorexia, Denies chills, Denies chronic headaches, Denies chronic pain, Denies daytime sleepiness, Denies fatigue, Denies fever, Denies malaise, Denies night sweats, Denies sweats, Denies weakness, Denies weight gain, Denies weight loss Ears, nose, mouth and throat: Denies ant. neck pain, Denies bleeding gums, Denies dental pain, Denies dysphagia, Denies epistaxis, Denies headache, Denies hoarseness, Denies mouth pain, Denies nasal congestion, Denies nasal discharge, Denies neck fullness/pressure, Denies neck lump, Denies nose pain, Denies odynophagia, Denies post-nasal drip, Denies sinus pain, Denies sinus pressure, Denies swelling in mouth, Denies swelling in throat, Denies sore throat, Denies vertigo, Denies voice changes Cardiovascular: Denies chest pain, Denies claudication, Denies decreased exercise tolerance, Denies dyspnea on exertion, Denies edema, Denies high blood pressure, Denies irregular heart beat, Denies leg edema, Denies lightheadedness, Denies orthopnea, Denies palpitations, Denies paroxysmal nocturnal dyspnea, Denies phlebitis, Denies rapid heart beat, Denies shortness of breath, Denies syncope Respiratory: Denies congestion, Denies cough, Denies cough with sputum, Denies dyspnea, Denies excessive sputum, Denies hemoptysis, Denies home oxygen, Denies pain, Denies pain on inspiration, Denies pleurisy, Denies respiratory infections, Denies sleep apnea, Denies snoring, Denies wheezing Gastrointestinal: Denies nausea, denies vomiting, denies diarrhea, denies abdominal pain Genitourinary: Denies dysuria, denies frequency Menstruation: Postmenopausal Musculoskeletal: Reports gait dysfunction (Decubitus ulcer, as she sleeps in a recliner walker assist at home), Reports myalgias Integumentary: Reports wounds (Decubitus right more than left, right heel ulcer 3 cm x 2 cm x 1 cm without S ravinder) Neurological: Reports gait dysfunction Psychiatric: Reports hallucinations Endocrine: Reports cold intolerance, Denies deepening of the voice, Denies excessive sweating, Denies excessive thirst, Denies fatigue, Denies flushing, Denies heat intolerance, Denies high blood sugars, Denies increase in ring/shoe/hat size, Denies low blood sugars, Denies nocturia, Denies palpitations, Denies polydipsia, Denies polyphagia, Denies polyuria, Denies proptosis, Denies recent glucocorticoid use, Denies thyroid mass, Denies weight change Hematologic/Lymphatic: Denies easy bleeding, Denies easy bruising, Denies lymphadenopathy, Denies lymphedema, Denies thrombophilia Allergic/Immunologic: Denies allergic rhinitis, Denies anaphylaxis, Denies angioedema, Denies gluten intolerance, Denies persistent infections, Denies seasonal allergies, Denies urticaria, Denies wheezing Objective - Vital Signs Vital signs: Vital Signs Temp 98.2 F 12/29/18 11:41 Pulse 78 12/29/18 11:41 Resp 18 12/29/18 11:41 BP 146/65 12/29/18 11:41 Pulse Ox 99 12/29/18 11:41 Intake & Output 12/28/18 12/29/18 12/29/18 18:59 06:59 18:59 Intake Total 1200 718 Output Total 200 300 Balance 1000 -300 718 Weight 56.3 kg 56.3 kg Intake: Intake, IV Titration 750 600 Amount Sodium Chloride 0.9% 1, 600 000 ml @ 100 mls/hr IV . Q10H [facility] Rx#:[id number] Sodium Chloride 0.9% 1, 150 600 000 ml @ 75 mls/hr IV . [id number] [facility] Rx#:[id number] Oral 450 118 Output: Urine 200 300 Other: Voiding Method Bedside Commode Bedside Commode Bedside Commode # Voids 1 2 - Constitutional General appearance: Present: average body habitus, cooperative, no acute distress - EENT Eyes: Present: EOMI, PERRLA, dentition normal, normal appearance ENT: Present: NA/AT, normal oropharynx - Neck Neck: Present: normal ROM - Respiratory Respiratory: bilateral: CTA, negative: diminished, dullness, rales - Cardiovascular Rhythm: regular Heart sounds: normal: S1 Abnormal Heart Sounds: Present: systolic murmur. Absent: diastolic murmur, rub, S3 Gallop, S4 Gallop, click, other - Gastrointestinal General gastrointestinal: Present: normal bowel sounds, soft - Integumentary Integumentary: Present: decreased turgor, normal - Neurologic Neurologic: Present: CNII-XII intact - Musculoskeletal Musculoskeletal Comment(s): Abnormal gait, has significant pain in the right heel with ambulation Musculoskeletal: Present: strength equal bilaterally - Labs CBC & Chem 7: 12/29/18 05:23 12/29/18 05:23 Labs: Abnormal Lab Results - Last 24 Hours (Table) 12/28/18 12/28/18 12/28/18 Range/Units 06:18 16:53 20:35 RBC (3.80-5.40) m/uL Hgb (11.4-16.0) gm/dL Hct (34.0-46.0) % MCV (80.0-100.0) fL Chloride (98-107) mmol/L BUN (7-17) mg/dL Creatinine (0.52-1.04) mg/dL Glucose (74-99) mg/dL POC Glucose (mg/dL) 146 H 148 H (75-99) mg/dL Calcium (8.4-10.2) mg/dL Iron 40 L (50-170) ug/dL TIBC 192 L (228-460) ug/dL 12/29/18 12/29/18 12/29/18 Range/Units 05:23 05:23 06:55 RBC 2.42 L (3.80-5.40) m/uL Hgb 8.2 L D (11.4-16.0) gm/dL Hct 24.3 L (34.0-46.0) % MCV 100.3 H (80.0-100.0) fL Chloride 113 H (98-107) mmol/L BUN 35 H (7-17) mg/dL Creatinine 1.30 H (0.52-1.04) mg/dL Glucose 140 H (74-99) mg/dL POC Glucose (mg/dL) 149 H (75-99) mg/dL Calcium 8.1 L (8.4-10.2) mg/dL Iron (50-170) ug/dL TIBC (228-460) ug/dL 12/29/18 Range/Units 11:50 RBC (3.80-5.40) m/uL Hgb (11.4-16.0) gm/dL Hct (34.0-46.0) % MCV (80.0-100.0) fL Chloride (98-107) mmol/L BUN (7-17) mg/dL Creatinine (0.52-1.04) mg/dL Glucose (74-99) mg/dL POC Glucose (mg/dL) 184 H (75-99) mg/dL Calcium (8.4-10.2) mg/dL Iron (50-170) ug/dL TIBC (228-460) ug/dL Microbiology - Last 24 Hours (Table) 12/27/18 03:00 Urine Culture - Preliminary Urine,Clean Catch Group D Enterococcus Assessment and Plan Plan: 1. Acute mental status changes with obtundation and unresponsiveness transient, episode of hallucinations visual,with cortical posturing , significant mental status change, however this has resolved after hydration, EEG of the brain patient will be seen by neurology, TPA was not done as she is not a candidate, no surgical intervention as it is not indicated, this was discussed by the ER to the stroke network, patient would continue on aspirin, we have added Plavix. CTA neck was performed without any significant internal carotid artery stenosis prognosis remains to be guarded, , cultures urine are currently pending, not receiving any IV antibiotic at this time as the patient responded very well with clinical hydration 2. 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 Diabetes mellitus type 2, insulin requiring. NovoLog 70/30 hold metformin secondary to elevated creatinine area and hemoglobin A1c 7.2. 4. Hypertension. Continue lisinopril 10 mg daily, Cardizem CD 120 mg daily. 5. Hyperlipidemia. Continue Pravachol 40 mg at bedtime. 6. Gastroesophageal reflux disease. Continue omeprazole. 7. DVT prophylaxis. Lovenox subcu. 8 History of uterine cancer with prior hysterectomy 9 Decubitus ulcer right side and left side, stage II on the right, stage I on the left sacral, secondary to pressure, frequent diaper change was advised for family members to do at home as well, and local wound care with hydrocolloid, 10 Right heel ulcer suspect chronic, unknown etiology, consult Dr. James for wounds, right surgical shoe to be ordered by case mgr. 11 Anemia possibly iron deficiency, check Hemoccult stools, iron studies 12. 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 PT and OT consults in place.
[2018-12-29 16:48] LABS: Glucose,Whole Blood 143 mg/dL (75-99)
[2018-12-29 20:51] LABS: Glucose,Whole Blood 172 mg/dL (75-99)
[2018-12-29] MEDS: metFORMIN 500 MG TAB PO SCH (21:16)
[2018-12-29] MEDS: PRAVASTATIN SODIUM 40 MG TAB PO SCH (21:16)
[2018-12-30] MEDS: Acetaminophen-Codeine 300-30mg TAB PO PRN ×3 (04:21→20:08)
[2018-12-30 06:28] LABS: Glucose,Whole Blood 117 mg/dL (75-99)
[2018-12-30] MEDS: INSULIN ASPART (NovoLOG) 100 UNIT/ML VIAL SQ SCH ×3 (06:41→17:19)
[2018-12-30] MEDS: PANTOPRAZOLE 40 MG TABLET PO SCH (06:42)
[2018-12-30] MEDS: SODIUM CHLORIDE 0.9% 1,000 ML IV SCH ×2 (08:26→19:04)
[2018-12-30] MEDS: metFORMIN 500 MG TAB PO SCH ×2 (08:27→20:08)
[2018-12-30] MEDS: ASPIRIN 325 MG TAB PO SCH (08:27)
[2018-12-30] MEDS: FAMOTIDINE 20 MG TAB PO SCH (08:27)
[2018-12-30] MEDS: MULTIVITAMINS, THERA 1 EACH TAB PO SCH (08:27)
[2018-12-30] MEDS: PIOGLITAZONE 30 MG TAB PO SCH (08:27)
[2018-12-30] MEDS: DILTIAZEM CD 120 MG CAP.ER.24H PO SCH (08:27)
[2018-12-30] MEDS: LISINOPRIL 10 MG TAB PO SCH (08:27)
[2018-12-30] MEDS: BACLOFEN 10 MG TAB PO SCH ×2 (08:27→20:08)
[2018-12-30 11:41] LABS: Glucose,Whole Blood 136 mg/dL (75-99)
--- NOTE | 2018-12-30 16:07 | P.PN ---
Subjective Progress Note Date: 12/30/18 This is an 88-year-old female patient of Dr. Shay with past medical history of diabetes mellitus type 2, hypertension, hyperlipidemia. Dementia, osteoporosis, long-term use of insulin, PAD, and anemia, admitted through the emergency room secondary to mental status change, she has underlying history of psychosis, and is not tract infection. She was last seen by a family member yesterday evening around 6 to 6:30 in the afternoon, and was noted to be lethargic at that time, however when they came to check on her this morning, she was less responsive and less verbal, patient cannot provide much history at the emergency room as she was decorticate, obtunded, however this has drastically change during my examination around 7 PM, patient had been more alert more coherent and more responsive, able to recognize family members around grandson and son-in-law, including speech is coherent, with spontaneous, medication, alert oriented 3 however patient was seeing people, was having this for hallucinations. Patient currently is hydrated, we'll going to obtain urinalysis with culture, EEG of the brain, consult with neurology. She also comes in with acute kidney failure and clinical dehydration. She has no diarrhea, has been drinking less for the past few days. In the emergency room, she was found to be decorticate posturing, imaging studies shows left carotid stenosis under 50%, however it is moderate to severe stenosis at the proximal right subclavian artery with mild poststenotic dilation 1.2 cm, with mild atherosclerotic calcification on the takeoff of the right vertebral artery without significant narrowing, right internal carotid shows less than 50% narrowing, there is bovine configuration to the aortic arch, mild to moderate atherosclerotic narrowing proximal to the left subclavian artery. 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 Computed tomography scan of the brain stable to mild to moderate generalized atrophy and confluent change of the chronic small vessel ischemic disease, no acute intracranial abnormality seen, EKG shows normal sinus rhythm with PACs, with ST-T wave changes. Acute CVA was suspected based on her clinical examination, this was discussed by the ER physician with Dr. Hoover at [facility], there was no intervention indicated, and patient was not a TPA candidate based on the down time, patient will be started on Plavix in addition to maintaining her aspirin 81 mg, consult with neurology. Creatinine on presentation was 1.87 from a previous of 0.93 2018, B12 was normal, no urinalysis done during this current admission. Hemoglobin 10.2 however based on my clinical examination and had drastic improvement from ER admission, this does not follow clinical response of CVA, EEG of the brain was requested to rule out seizures and she responded well with hydration, ma evaluate for UTI sepsis, she has visual hallucinations 12/28: The patient is seen sitting up in a chair and appears to be in no acute distress. Patient has been evaluated by Dr. James plan for local wound care. Dr. Trujillo is following and EEG report is pending. We will plan to order a right surgical shoe or custom-made shoe for her right foot. trauma manager updated. PT is recommended subacute rehab. Patient has been afebrile, blood pressure 129/59, heart rate 62, pulse ox 100% on room air. Repeat troponin negative, triglycerides 211, cholesterol 211, LDL 103, HDL 66, TSH 2.230. Hemoglobin A1c is 7.2. 12/29, patient remains at baseline, sleeping in the chair, no significant foot pain however patient said mobile as much, patient doesn't have any new hallucinations as noted, appetite is normal, her surgical shoe is still pending to be evaluated, ordered are placed, awaiting subacute rehab at risk for falls cultures are currently pending no hypoglycemia no hypotension hemoglobin of 8.2 possibly Related to hydration, creatinine improving at 1.3 from a previous of 1.87 December 30: Patient remains to be alert, ambulates minimally, no surgical boot At bedside, with discussing subacute rehab on discharge,, still requiring moderate assist, has poor balance, urine culture shows over 100,000 colonies of Enterococcus faecalis, resistant to rifampin intermediate to ciprofloxacin, will start Levaquin 500 mg daily till final recommendation from Dr. James was off this weekend Objective - Vital Signs Vital signs: Vital Signs Temp 96.1 F L 12/30/18 12:00 Pulse 78 12/30/18 12:00 Resp 18 12/30/18 12:00 BP 141/65 12/30/18 12:00 Pulse Ox 100 12/30/18 12:00 Intake & Output 12/29/18 12/30/18 12/30/18 18:59 06:59 18:59 Intake Total 973 30 336 Output Total 250 Balance 973 -220 336 Weight 56.3 kg 55.8 kg Intake: IV 10 30 Invasive Line 3 10 30 Intake, IV Titration 600 Amount Sodium Chloride 0.9% 1, 600 000 ml @ 75 mls/hr IV . [id number] [facility] Rx#:[id number] Oral 363 336 Output: Urine 250 Other: Voiding Method Bedside Commode Bedside Commode Bedside Commode # Voids 2 1 - Constitutional General appearance: Present: average body habitus, cooperative - EENT Eyes: Present: fundus normal, poor dentition ENT: Present: hard of hearing, NA/AT, normal oropharynx - Neck Neck: Present: normal ROM - Respiratory Respiratory: bilateral: CTA, negative: dullness, rales - Cardiovascular Heart sounds: normal: S1, S2 Abnormal Heart Sounds: Absent: systolic murmur, diastolic murmur, rub, S3 Gallop, S4 Gallop, click, other - Gastrointestinal General gastrointestinal: Present: normal bowel sounds - Musculoskeletal Musculoskeletal: Present: strength equal bilaterally - Psychiatric Psychiatric: Present: A&O x's 3, appropriate affect - Labs CBC & Chem 7: 12/29/18 05:23 12/29/18 05:23 Labs: Abnormal Lab Results - Last 24 Hours (Table) 12/29/18 12/29/18 12/30/18 Range/Units 16:46 20:49 06:26 POC Glucose (mg/dL) 143 H 172 H 117 H (75-99) mg/dL 12/30/18 Range/Units 11:39 POC Glucose (mg/dL) 136 H (75-99) mg/dL Microbiology - Last 24 Hours (Table) 12/27/18 03:00 Urine Culture - Preliminary Urine,Clean Catch Group D Enterococcus Assessment and Plan Plan: 1. Acute mental status changes with obtundation and unresponsiveness transient, episode of hallucinations visual,with cortical posturing , significant mental status change, however this has resolved after hydration, EEG of the brain patient will be seen by neurology, TPA was not done as she is not a candidate, no surgical intervention as it is not indicated, this was discussed by the ER to the stroke network, patient would continue on aspirin, we have added Plavix. CTA neck was performed without any significant internal carotid artery stenosis prognosis remains to be guarded, , cultures urine are currently pending, not receiving any IV antibiotic at this time as the patient responded very well with clinical hydration 2. 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 Acute UTI with enterococcus over 100,000 colonies,, start Levaquin 500 mg daily until formal recommendation from Dr. James as the patient also has sacral decubitus and heel ulceration 3. Diabetes mellitus type 2, insulin requiring. NovoLog 70/30 hold metformin secondary to elevated creatinine area and hemoglobin A1c 7.2. 4. Hypertension. Continue lisinopril 10 mg daily, Cardizem CD 120 mg daily. 5. Hyperlipidemia. Continue Pravachol 40 mg at bedtime. 6. Gastroesophageal reflux disease. Continue omeprazole. 7. DVT prophylaxis. Lovenox subcu. 8 History of uterine cancer with prior hysterectomy 9 Decubitus ulcer right side and left side, stage II on the right, stage I on the left sacral, secondary to pressure, frequent diaper change was advised for family members to do at home as well, and local wound care with hydrocolloid, 10 Right heel ulcer suspect chronic, unknown etiology, consult Dr. James for wounds, right surgical shoe to be ordered by case finisher. 11 Anemia possibly iron deficiency, check Hemoccult stools, iron studies 12. 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 PT and OT consults in place.
[2018-12-30] MEDS: LEVOFLOXACIN 500 MG TAB PO SCH (17:18)
[2018-12-30 17:23] LABS: Glucose,Whole Blood 151 mg/dL (75-99)
[2018-12-30] MEDS: PRAVASTATIN SODIUM 40 MG TAB PO SCH (20:08)
[2018-12-30 20:09] LABS: Glucose,Whole Blood 189 mg/dL (75-99)
[2018-12-31] MEDS: INSULIN ASPART (NovoLOG) 100 UNIT/ML VIAL SQ SCH ×3 (01:14→12:44)
[2018-12-31 06:04] LABS: Glucose,Whole Blood 121 mg/dL (75-99)
[2018-12-31] MEDS: PANTOPRAZOLE 40 MG TABLET PO SCH (06:43)
[2018-12-31] MEDS: metFORMIN 500 MG TAB PO SCH (09:04)
[2018-12-31] MEDS: MULTIVITAMINS, THERA 1 EACH TAB PO SCH (09:04)
[2018-12-31] MEDS: BACLOFEN 10 MG TAB PO SCH (09:04)
[2018-12-31] MEDS: FAMOTIDINE 20 MG TAB PO SCH (09:04)
[2018-12-31] MEDS: LEVOFLOXACIN 500 MG TAB PO SCH (09:04)
[2018-12-31] MEDS: DILTIAZEM CD 120 MG CAP.ER.24H PO SCH (09:05)
[2018-12-31] MEDS: LISINOPRIL 10 MG TAB PO SCH (09:05)
[2018-12-31] MEDS: PIOGLITAZONE 30 MG TAB PO SCH (09:05)
[2018-12-31] MEDS: Acetaminophen-Codeine 300-30mg TAB PO PRN (09:05)
[2018-12-31] MEDS: ASPIRIN 325 MG TAB PO SCH (09:05)
[2018-12-31 09:10] VITALS: RESP 16; TEMP 98.9
[2018-12-31 12:21] LABS: Glucose,Whole Blood 144 mg/dL (75-99)
[2018-12-31] MEDS ORDERED: LIDOCAINE 5% PATCH TOPICAL SCH (12:45)
[2018-12-31 12:52] VITALS: BP 138/60; PULSE 98
--- NOTE | 2018-12-31 13:28 | P.DS ---
Providers Date of admission: 12/28/18 14:13 Expected date of discharge: 12/31/18 Attending physician: Sakshi Mendez Consults: 12/27/18 14:23 Consult Physician Routine Consulting Provider: Connor James Consult Reason/Comments: pressure ulcer, butock and right heel Do you want consulting provider notified?: Yes 12/28/18 12:58 Consult Physician Routine Consulting Provider: Bridget Roberts Consult Reason/Comments: mental status changes, hallucinations Do you want consulting provider notified?: Already Contacted [facility] Course: This is an 88-year-old female patient of Dr. Shay with past medical history of diabetes mellitus type 2, hypertension, hyperlipidemia. Dementia, osteoporosis, long-term use of insulin, PAD, and anemia, admitted through the emergency room secondary to mental status change, she has underlying history of psychosis, and is not tract infection. She was last seen by a family member yesterday evening around 6 to 6:30 in the afternoon, and was noted to be lethargic at that time, however when they came to check on her this morning, she was less responsive and less verbal, patient cannot provide much history at the emergency room as she was decorticate, obtunded, however this has drastically change during my examination around 7 PM, patient had been more alert more coherent and more responsive, able to recognize family members around grandson and son-in-law, including speech is coherent, with spontaneous, medication, alert oriented 3 however patient was seeing people, was having this for [facility]. Patient currently is hydrated, we'll going to obtain urinalysis with culture, EEG of the brain, consult with neurology. She also comes in with acute kidney failure and clinical dehydration. She has no diarrhea, has been drinking less for the past few days. In the emergency room, she was found to be decorticate posturing, imaging studies shows left carotid stenosis under 50%, however it is moderate to severe stenosis at the proximal right subclavian artery with mild poststenotic dilation 1.2 cm, with mild atherosclerotic calcification on the takeoff of the right vertebral artery without significant narrowing, right internal carotid shows less than 50% narrowing, there is bovine configuration to the aortic arch, mild to moderate atherosclerotic narrowing proximal to the left subclavian artery. 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 Computed tomography scan of the brain stable to mild to moderate generalized atrophy and confluent change of the chronic small vessel ischemic disease, no acute intracranial abnormality seen, EKG shows normal sinus rhythm with PACs, with ST-T wave changes. Acute CVA was suspected based on her clinical examination, this was discussed by the ER physician with Dr. Hoover at [facility], there was no intervention indicated, and patient was not a TPA candidate based on the down time, patient will be started on Plavix in addition to maintaining her aspirin 81 mg, consult with neurology. Creatinine on presentation was 1.87 from a previous of 0.93 2018, B12 was normal, no urinalysis done during this current admission. Hemoglobin 10.2 however based on my clinical examination and had drastic improvement from ER admission, this does not follow clinical response of CVA, EEG of the brain was requested to rule out seizures and she responded well with hydration, ma evaluate for UTI sepsis, she has visual hallucinations 12/28: The patient is seen sitting up in a chair and appears to be in no acute distress. Patient has been evaluated by Dr. James plan for local wound care. Dr. Trujillo is following and EEG report is pending. We will plan to order a right surgical shoe or custom-made shoe for her right foot. commodities manager updated. PT is recommended subacute rehab. Patient has been afebrile, blood pressure 129/59, heart rate 62, pulse ox 100% on room air. Repeat troponin negative, triglycerides 211, cholesterol 211, LDL 103, HDL 66, TSH 2.230. Hemoglobin A1c is 7.2. 12/29, patient remains at baseline, sleeping in the chair, no significant foot pain however patient said mobile as much, patient doesn't have any new hallucinations as noted, appetite is normal, her surgical shoe is still pending to be evaluated, ordered are placed, awaiting subacute rehab at risk for falls cultures are currently pending no hypoglycemia no hypotension hemoglobin of 8.2 possibly Related to hydration, creatinine improving at 1.3 from a previous of 1.87 December 30: Patient remains to be alert, ambulates minimally, no surgical boot At bedside, with discussing subacute rehab on discharge,, still requiring moderate assist, has poor balance, urine culture shows over 100,000 colonies of Enterococcus faecalis, resistant to rifampin intermediate to ciprofloxacin, will start Levaquin 500 mg daily till final recommendation from Dr. James was off this weekend 12/31: Patient is complaining of back pain and lidocaine patch will be added. Due to renal failure, lisinopril and metformin will be discontinued. Patient will be started on Norvasc instead. Patient is agreeable to go to [facility] and will be discharged to [facility] once all arrangements are completed. Patient will be followed at the shelter by Dr. Shay. Discharge diagnoses: 1. Acute metabolic encephalopathy including hallucinations with obtundation and unresponsiveness transient with cortical posturing secondary to dehydration, resolved. 2. Acute kidney failure underlying CKD stage III 3. UTI has been ruled out. 3. Diabetes mellitus type 2, insulin requiring. 4. Hypertension. 5. Hyperlipidemia. 6. Gastroesophageal reflux disease. 7. History of uterine cancer with prior hysterectomy. 9. Decubitus ulcer bilateral buttocks. 10. Right heel decubitus ulcer. 11. Anemia of chronic disease. 12. Visual hallucinations, possibly related to underlying dementia and dehydration. Discharge plan: [facility] under the care of Dr. Shay Impression and plan of care have been directed as dictated by the signing physician. Christina Wadsworth nurse practitioner acting as scribe for signing physician. Patient Condition at Discharge: Serious Plan - Discharge Summary New Discharge Prescriptions: New Baclofen [Lioresal] 2.5 mg PO TID #90 tab amLODIPine BESYLATE [Norvasc] 5 mg PO DAILY #30 tablet Continue Aspirin [Adult Low Dose Aspirin EC] 81 mg PO QAM Nitroglycerin Sl Tabs [Nitrostat] 0.4 mg SUBLINGUAL Q5M PRN PRN Reason: Chest Pain Multivit with Calcium,Iron,Min [Women's Multivitamin] 1 tab PO DAILY Pioglitazone [Actos] 30 mg PO DAILY #30 tab Diltiazem HCl [Cartia Xt] 120 mg PO QAM #30 cap.er.24h Pravastatin Sodium [Pravachol] 40 mg PO HS #30 tab Omeprazole [PriLOSEC] 20 mg PO DAILY #30 capsule. Acetaminophen with Codeine [Tylenol w/codeine #3] 1 tab PO Q8H PRN #9 tab PRN Reason: Pain Discontinued metFORMIN HCL [Glucophage] 500 mg PO BID Lisinopril [Prinivil] 10 mg PO DAILY #30 tablet Baclofen 2.5 mg PO BID Discharge Medication List Aspirin [Adult Low Dose Aspirin EC] 81 mg PO QAM 02/29/16 [History] Nitroglycerin Sl Tabs [Nitrostat] 0.4 mg SUBLINGUAL Q5M PRN 05/15/18 [History] Multivit with Calcium,Iron,Min [Women's Multivitamin] 1 tab PO DAILY 09/07/18 [History] Diltiazem HCl [Cartia Xt] 120 mg PO QAM #30 cap.er.24h 09/11/18 [Rx] Omeprazole [PriLOSEC] 20 mg PO DAILY #30 capsule.dr 09/11/18 [Rx] Pioglitazone [Actos] 30 mg PO DAILY #30 tab 09/11/18 [Rx] Pravastatin Sodium [Pravachol] 40 mg PO HS #30 tab 09/11/18 [Rx] Acetaminophen with Codeine [Tylenol w/codeine #3] 1 tab PO Q8H PRN #9 tab 12/31/18 [Rx] Baclofen [Lioresal] 2.5 mg PO TID #90 tab 12/31/18 [Rx] amLODIPine BESYLATE [Norvasc] 5 mg PO DAILY #30 tablet 12/31/18 [Rx] Follow up Appointment(s)/Referral(s): Connor Shay MD [Primary Care Provider] - 1 Week (At [facility]) Discharge Disposition: TRANSFER TO SNF/ECF
[2018-12-31] MEDS ORDERED: BACLOFEN 10 MG TAB PO SCH (16:00)
--- NOTE | 2018-12-31 22:13 | P.PN ---
Subjective Progress Note Date: 12/31/18 This is an 88-year-old female with past medical history of diabetes mellitus type 2, hypertension, hyperlipidemia, dementia, osteoporosis, PAD, and anemia, history of psychosis. Patient was brought into [facility] emergency center due to mental status changes. She was last seen by a family member Monday evening around 6 to 6:30 in the afternoon, and was noted to be lethargic at that time, however, when they came to check on her in the morning, she was less responsive and less verbal. Patient cannot provide much history at the emergency room as she was decorticate, obtunded, however, this was significantly improved later in the evening. She received 2 and half liters of IV fluid. Her initial lab work revealed white count normal at 7.7, hemoglobin 10.2, BUN 54 and creatinine 1.87. Blood sugar 128, lactic acid 1.8, troponins negative, albumin 3.7. Urinalysis cloudy, blood moderate, leukoesterase large, RBCs 116, wbc's 43, hyaline casts 136. CT angios of the head and neck revealed less than 50% narrowing and bilateral carotid bulbs, no large vessel intracranial artery occlusion or aneurysmal change. CAT scan of the brain revealed stable to mild to moderate generalized atrophy and confluent change of the chronic small vessel ischemic disease, no acute intracranial abnormality. EKG shows normal sinus rhythm with PACs, with ST-T wave changes. Acute CVA was suspected and ER physician spoke with Dr. Hoover at [facility] stroke network, there was no intervention indicated, and patient was not a TPA candidate based on the down time. Patient was started on Plavix in addition to maintaining her aspirin 81 mg neurology consult was added. Regarding decubitus ulcers, patient has unstageable decubitus ulcers to the bilateral buttocks and right heel. Patient thinks that she has had these for a couple weeks. She is complaining of pain to the right hip. She states she uses a walker and there may have been a recent fall. Patient states that she has and drinking okay but did not eat any breakfast that she did not like the food. She states she lives at home with her and her grandson lives in part to home on the back side but is a 15-year-old. 12/31/2018 Patient's son is present and looks forward for her transfer to the rehab facility. The patient family understand that the patient is in need of greater help in his possible at home. She has developed a pressure ulcerations to her heels and her buttocks due to her progressive weakness. Objective - Vital Signs Vital signs: Vital Signs Temp 98.9 F 12/31/18 08:00 Pulse 98 12/31/18 12:00 Resp 16 12/31/18 14:00 BP 138/60 12/31/18 12:00 Pulse Ox 98 12/31/18 14:00 Intake & Output 12/31/18 12/31/18 01/01/19 06:59 18:59 06:59 Intake Total 220 Output Total 500 0 Balance -500 220 Weight 55.2 kg Intake: Oral 220 Output: Urine 500 0 Other: Voiding Method Bedside Commode Bedside Commode # Voids 0 0 - Exam Gen: This is an 88-year-old female. Patient is resting in bed and appears to be comfortable and in no acute distress. HEENT: Head is atraumatic, normocephalic. Pupils equal, round. Sclerae is anicteric. Oral mucous membranes are moist. Patient is edentulous. NECK: Supple. No JVD. No lymphadenopathy. No thyromegaly. LUNGS: Clear to auscultation. No wheezes or rhonchi. No intercostal r etractions. HEART: Regular rate and rhythm. No murmur. ABDOMEN: Soft. Bowel sounds are present. No masses. No tenderness. EXTREMITIES: No pedal edema. No calf tenderness. Please see nursing docume ntation regarding unstageable decubitus ulcer to the bilateral buttocks and to the bilateral heels. NEUROLOGICAL: Patient is awake, alert and oriented x3. - Labs CBC & Chem 7: 12/29/18 05:23 12/29/18 05:23 Labs: Abnormal Lab Results - Last 24 Hours (Table) 12/31/18 12/31/18 Range/Units 06:02 12:11 POC Glucose (mg/dL) 121 H 144 H (75-99) mg/dL Laboratory Results WBC 6.2 k/uL (3.8-10.6) 12/29/18 05:23 RBC 2.42 m/uL (3.80-5.40) L 12/29/18 05:23 Hgb 8.2 gm/dL (11.4-16.0) L D 12/29/18 05:23 Hct 24.3 % (34.0-46.0) L 12/29/18 05:23 MCV 100.3 fL (80.0-100.0) H 12/29/18 05:23 MCH 33.7 pg (25.0-35.0) 12/29/18 05:23 MCHC 33.7 g/dL (31.0-37.0) 12/29/18 05:23 RDW 13.7 % (11.5-15.5) 12/29/18 05:23 Plt Count 234 k/uL (150-450) 12/29/18 05:23 Neutrophils % 76 % 12/27/18 10:39 Lymphocytes % 12 % 12/27/18 10:39 Monocytes % 7 % 12/27/18 10:39 Eosinophils % 2 % 12/27/18 10:39 Basophils % 2 % 12/27/18 10:39 Neutrophils # 5.9 k/uL (1.3-7.7) 12/27/18 10:39 Lymphocytes # 0.9 k/uL (1.0-4.8) L 12/27/18 10:39 Monocytes # 0.5 k/uL (0-1.0) 12/27/18 10:39 Eosinophils # 0.1 k/uL (0-0.7) 12/27/18 10:39 Basophils # 0.2 k/uL (0-0.2) 12/27/18 10:39 Macrocytosis Slight 12/27/18 10:39 PT 9.8 sec (9.0-12.0) 12/27/18 10:39 INR 0.9 (<1.2) 12/27/18 10:39 APTT 23.5 sec (22.0-30.0) 12/27/18 10:39 Sodium 139 mmol/L (137-145) 12/29/18 05:23 Potassium 4.4 mmol/L (3.5-5.1) 12/29/18 05:23 Chloride 113 mmol/L (98-107) H 12/29/18 05:23 Carbon Dioxide 24 mmol/L (22-30) 12/29/18 05:23 Anion Gap 2 mmol/L 12/29/18 05:23 BUN 35 mg/dL (7-17) H 12/29/18 05:23 Creatinine 1.30 mg/dL (0.52-1.04) H 12/29/18 05:23 Est GFR (CKD-EPI)AfAm 43 (>60 ml/min/1.73 sqM) 12/29/18 05:23 Est GFR (CKD-EPI)NonAf 37 (>60 ml/min/1.73 sqM) 12/29/18 05:23 Glucose 140 mg/dL (74-99) H 12/29/18 05:23 POC Glucose (mg/dL) 144 mg/dL (75-99) H 12/31/18 12:11 POC Glu Piano Instructor ID Cassandra Ruiz 12/31/18 12:[address] Glu mg/dL 160 12/28/18 06:18 Hemoglobin A1c 7.2 % (4.0-6.0) H 12/28/18 06:18 Plasma Lactic Acid Lobo 1.8 mmol/L (0.7-2.0) 12/27/18 10:39 Calcium 8.1 mg/dL (8.4-10.2) L 12/29/18 05:23 Magnesium 1.7 mg/dL (1.6-2.3) 12/27/18 10:39 Iron 40 ug/dL (50-170) L 12/28/18 06:18 TIBC 192 ug/dL (228-460) L 12/28/18 06:18 % Saturation 20.83 (12.00-45.00) 12/28/18 06:18 Ferritin 151.8 ng/mL (10.0-291.0) 12/28/18 06:18 Total Bilirubin 0.4 mg/dL (0.2-1.3) 12/27/18 10:39 AST 20 U/L (14-36) 12/27/18 10:39 ALT 19 U/L (9-52) 12/27/18 10:39 Alkaline Phosphatase 72 U/L (38-126) 12/27/18 10:39 Ammonia <9 umol/L (<30) 12/28/18 06:18 Creatine Kinase 45 U/L (30-135) 12/27/18 10:39 Troponin I <0.012 ng/mL (0.000-0.034) 12/27/18 22:33 Total Protein 6.6 g/dL (6.3-8.2) 12/27/18 10:39 Albumin 3.7 g/dL (3.5-5.0) 12/27/18 10:39 Triglycerides 211 mg/dL (<150) H 12/28/18 06:18 Cholesterol 211 mg/dL (<200) H 12/28/18 06:18 LDL Cholesterol, Calc 103 mg/dL (0-99) H 12/28/18 06:18 HDL Cholesterol 66 mg/dL (40-60) H 12/28/18 06:18 TSH 2.230 mIU/L (0.465-4.680) 12/28/18 06:18 Urine Color Yellow 12/27/18 03:00 Urine Appearance Cloudy (Clear) H 12/27/18 03:00 Urine pH 7.0 (5.0-8.0) 12/27/18 03:00 Ur Specific [place] 1.028 (1.001-1.035) 12/27/18 03:00 Urine Protein 1+ (Negative) H 12/27/18 03:00 Urine Glucose (UA) Negative (Negative) 12/27/18 03:00 Urine Ketones Trace (Negative) H 12/27/18 03:00 Urine Blood Moderate (Negative) H 12/27/18 03:00 Urine Nitrite Negative (Negative) 12/27/18 03:00 Urine Bilirubin Negative (Negative) 12/27/18 03:00 Urine Urobilinogen <2.0 mg/dL (<2.0) 12/27/18 03:00 Ur Leukocyte Esterase Large (Negative) H 12/27/18 03:00 Urine RBC 116 /hpf (0-5) H 12/27/18 03:00 Urine WBC 43 /hpf (0-5) H 12/27/18 03:00 Ur Squamous Epith Cells <1 /hpf (0-4) 12/27/18 03:00 Urine Bacteria Rare /hpf (None) H 12/27/18 03:00 Hyaline Casts 136 /lpf (0-2) H 12/27/18 03:00 Granular Casts 29 /lpf (0) 12/27/18 03:00 Urine Mucus Rare /hpf (None) H 12/27/18 03:00 Assessment and Plan (1) Altered mental status Narrative/Plan: 8 year old woman with dementia presents with altered mental status with evidence of dehydration. To be seen by neurology for further evaluation. Afebrile, no leukocytosis and only abnormality noted are the pressure ulcers which are unstageable. Discussed with the nursing staff about need for APS given patients presentation. Will ask for matress given the multiple ulcers and poor functional status. Wound care to the heels with foam and barrier to buttocks. No antibiotics required at this time. 12/31/2018 the patient is starting to have further improvement but he has significant generalized weakness. We transferring to the rehab facility to obtain PT and OT to increase her throat strength and potentially return to her home environment.. Without ongoing evidence of any significant infection of antibiotic therapy is required. Offloading of her heels while she is supine. Also on a air mattress as helpful given her unstageable pressure ulcerations to her buttocks. He is being applied. If these open and started to drain and she may require surgical debridement may need follow-up in the wound healing Center. Status: Acute Code(s): R41.82 - ALTERED MENTAL STATUS, UNSPECIFIED SNOMED Code(s): 016320715 (2) CVA (cerebral vascular accident) Status: Acute Code(s): I63.9 - CEREBRAL INFARCTION, UNSPECIFIED SNOMED Code (s): 802726614 (3) Delirium due to general medical condition Status: Acute Code(s): F05 - DELIRIUM DUE TO KNOWN PHYSIOLOGICAL CONDITION SNOMED Code(s): 0758478
== END 2018-12-31 16:48 | DRG 640 ==
LOC: EC 10:33 → 3SCARD 14:22 → INTOOBSV 14:22 → 3SCARD 16:49 → OBSVTOIN 12-28 14:13
PROVIDERS: ADMIT Family Medicine; ATTEND Family Medicine
DX: E86.0 Dehydration (principal); G93.41 Metabolic encephalopathy; R44.3 Hallucinations, unspecified; N17.9 Acute kidney failure, unspecified; F05 Delirium due to known physiological condition; L97.419 Non-pressure chronic ulcer of right heel and midfoot with unspecified severity; I12.9 Hypertensive chronic kidney disease with stage 1 through stage 4 chronic kidney disease, or unspecified chronic kidney disease; E11.22 Type 2 diabetes mellitus with diabetic chronic kidney disease; N18.3 Chronic kidney disease, stage 3 (moderate); D63.8 Anemia in other chronic diseases classified elsewhere; E78.5 Hyperlipidemia, unspecified; F03.90 Unspecified dementia, unspecified severity, without behavioral disturbance, psychotic disturbance, mood disturbance, and anxiety; I25.2 Old myocardial infarction; I49.1 Atrial premature depolarization; K21.9 Gastro-esophageal reflux disease without esophagitis; L89.321 Pressure ulcer of left buttock, stage 1; L89.312 Pressure ulcer of right buttock, stage 2; M81.0 Age-related osteoporosis without current pathological fracture; R29.810 Facial weakness; R32 Unspecified urinary incontinence; Z79.4 Long term (current) use of insulin; Z79.82 Long term (current) use of aspirin; Z79.899 Other long term (current) drug therapy; Z85.42 Personal history of malignant neoplasm of other parts of uterus; Z87.440 Personal history of urinary (tract) infections; Z90.710 Acquired absence of both cervix and uterus; Z91.81 History of falling
CPT/HCPCS: 36415; 70450; 70496; 70498; 71046; 80048; 80053; 80061; 81001; 82140; 82550; 82728; 83036; 83540; 83550; 83605; 83735; 84443; 84484; 85025; 85027; 85610; 85730; 87077; 87086; 87186; 93005; 95819; 96360; 96361; 99291

== ENCOUNTER → 2019-01-25 | Outpatient (CLI) | payer MEDICARE | END | disposition home or self-care (01) | LOC: RADUSWWP 11:29 | PROVIDERS: ATTEND Family Medicine | DX: I73.9 Peripheral vascular disease, unspecified (principal); R60.0 Localized edema | CPT/HCPCS: 93922 ==